=== PATIENT | male | born 1960 | race Caucasian/White ===

== ENCOUNTER → 2016-04-15 | Outpatient (CLI) | payer OTHER ==
[~2016-04-15] MED LIST: ARTISOL2 EACH EYE; DULO20 PO; FLON0.053; LANSO15 PO; LIDOCAINE PATCH TOPICAL; NAPR220T95 PO; ROSU40 PO; SUMA100T2 PO; TAMS0.4C67 PO; TYLE650T9 PO
[2016-04-15 09:23] LABS: EOSINOPHIL # 0.2 TH/MM3 (0-0.4); EOSINOPHIL % 3.4 % (0.0-4.0); HEMATOCRIT 43.8 % (39.0-51.0); HEMO FLAGS DIFF FINAL; LYMPH % 17.9 % (9.0-44.0); LYMPHOCYTE # 0.8 TH/MM3 (1.0-4.8); MEAN CORPUSCULAR HEMOGLOBIN 28.7 PG (27.0-34.0); MEAN CORPUSCULAR HGB CONC 33.8 % (32.0-36.0); MONO % 12.7 % (0.0-8.0); PLATELET COUNT 159 TH/MM3 (150-450); RED BLOOD COUNT 5.15 MIL/MM3 (4.50-5.90); RED CELL DISTRIBUTION WIDTH 13.3 % (11.6-17.2); WHITE BLOOD COUNT 4.6 TH/MM3 (4.0-11.0)
[2016-04-15 10:00] LABS: ALKALINE PHOSPHATASE 54 U/L (45-117); ALT (GPT) 24 U/L (12-78); ANION GAP 7 MEQ/L (5-15); AST (GOT) 11 U/L (15-37); BICARBONATE 29.2 MEQ/L (21.0-32.0); BLOOD UREA NITROGEN 17 MG/DL (7-18); CHLORIDE 106 MEQ/L (98-107); GLOMERULAR FILTRATION RATE 85 ML/MIN (>89); GLUCOSE,FASTING 92 MG/DL (74-99); HDL CHOLESTEROL 75.3 MG/DL (40.0-60.0); LDL CHOLESTEROL 103 MG/DL (0-99); POTASSIUM 4.1 MEQ/L (3.5-5.1); SODIUM (NA) 142 MEQ/L (136-145); THYROXINE (T4) 9.4 MCG/DL (4.5-12.1); TOTAL BILIRUBIN ADULT 0.6 MG/DL (0.2-1.0)
[2016-04-15 22:30] LABS: HEMOGLOBIN A1a 0.9 %; HEMOGLOBIN A1b 1.5 %; HEMOGLOBIN LA1C 1.9 %; HEMOGLOBIN P3 3.7 %
[2016-04-16 04:57] LABS: FREE PSA/PSA RATIO 0.1 ratio (())
== END ==
LOC: CLAB 08:54
PROVIDERS: ATTEND Urology
DX: I10 Essential (primary) hypertension (principal); E78.2 Mixed hyperlipidemia; E03.8 Other specified hypothyroidism; R97.20 Elevated prostate specific antigen [PSA]; Z79.899 Other long term (current) drug therapy
CPT/HCPCS: 36415; 80053; 80061; 83036; 84153; 84154; 84436; 84443; 84480; 85025

== ENCOUNTER → 2016-06-22 | Outpatient (CLI) | payer OTHER ==
[~2016-06-22] MED LIST changes: +ACET650T67 PO; +CIAL5TAB PO; +CIPR-9 PO; +FLUT1SPR5 EACH NARE; +IMIT100T PO; +PREV30CA11 PO; +ROSU5 PO; +ZANT150T2 PO
[2016-06-22 07:52] LABS: AUTOMATED NEUTROPHIL # 2.9 TH/MM3 (1.8-7.7); BASOPHIL % 0.8 % (0.0-2.0); EOSINOPHIL # 0.2 TH/MM3 (0-0.4); EOSINOPHIL % 3.7 % (0.0-4.0); HEMATOCRIT 43.3 % (39.0-51.0); HEMO FLAGS DIFF FINAL; LYMPH % 23.3 % (9.0-44.0); LYMPHOCYTE # 1.1 TH/MM3 (1.0-4.8); MEAN CELL VOLUME 85.3 FL (80.0-100.0); MEAN CORPUSCULAR HEMOGLOBIN 29.1 PG (27.0-34.0); MONO % 11.5 % (0.0-8.0); NEUT % 60.7 % (16.0-70.0); PLATELET COUNT 155 TH/MM3 (150-450); RED BLOOD COUNT 5.08 MIL/MM3 (4.50-5.90); RED CELL DISTRIBUTION WIDTH 13.3 % (11.6-17.2); WHITE BLOOD COUNT 4.7 TH/MM3 (4.0-11.0)
[2016-06-22 08:23] LABS: ANION GAP 5 MEQ/L (5-15); BLOOD UREA NITROGEN 17 MG/DL (7-18); CHLORIDE 106 MEQ/L (98-107); GLOMERULAR FILTRATION RATE 78 ML/MIN (>89); GLUCOSE,FASTING 89 MG/DL (74-99); POTASSIUM 4.3 MEQ/L (3.5-5.1); SODIUM (NA) 141 MEQ/L (136-145)
[2016-06-22 16:59] LABS: HEMOGLOBIN A1a 0.9 %; HEMOGLOBIN A1b 1.6 %; HEMOGLOBIN Ao 86.3 %; HEMOGLOBIN LA1C 1.8 %; HEMOGLOBIN P3 3.5 %
== END ==
LOC: CLAB 07:24
DX: Z01.812 Encounter for preprocedural laboratory examination (principal); C61 Malignant neoplasm of prostate
CPT/HCPCS: 36415; 80048; 83036; 85025

== ENCOUNTER → 2016-09-17 | Outpatient (CLI) | payer OTHER ==
[~2016-09-17] MED LIST changes: +LEVA500T20 PO; +METR-1 PO
[2016-09-17 13:06] LABS: BICARBONATE 27.7 MEQ/L (21.0-32.0); POTASSIUM 4.6 MEQ/L (3.5-5.1)
== END ==
LOC: CLAB 12:09
PROVIDERS: ATTEND Internal Medicine
DX: Z79.899 Other long term (current) drug therapy (principal)
CPT/HCPCS: 36415; 80048

== ENCOUNTER → 2016-10-04 | Outpatient (CLI) | payer OTHER ==
[2016-10-04 12:09] LABS: AUTOMATED NEUTROPHIL # 6.6 TH/MM3 (1.8-7.7); BASOPHIL % 0.3 % (0.0-2.0); EOSINOPHIL % 0.4 % (0.0-4.0); HEMATOCRIT 39.8 % (39.0-51.0); HEMO FLAGS DIFF FINAL; LYMPH % 11.5 % (9.0-44.0); MEAN CELL VOLUME 84.8 FL (80.0-100.0); MEAN CORPUSCULAR HEMOGLOBIN 28.5 PG (27.0-34.0); MEAN CORPUSCULAR HGB CONC 33.6 % (32.0-36.0); MONO % 12.1 % (0.0-8.0); NEUT % 75.7 % (16.0-70.0); PLATELET COUNT 234 TH/MM3 (150-450); RED BLOOD COUNT 4.69 MIL/MM3 (4.50-5.90); RED CELL DISTRIBUTION WIDTH 12.9 % (11.6-17.2); WHITE BLOOD COUNT 8.7 TH/MM3 (4.0-11.0)
[2016-10-04 12:15] LABS: BLOOD, URINE NEG (NEG); COMMENT (UR) CULT NOT INDICATED; CULTURE IF INDICATED CULT NOT INDICATED; GLUCOSE,URINE NEG (NEG); KETONE, URINE NEG (NEG); MUCUS URINE FEW /lpf (OCC); NITRITE,URINE NEG (NEG); URINE COLOR DARK-YELLOW (YELLW/STRAW)
== END ==
LOC: CLAB 11:15
PROVIDERS: ATTEND Internal Medicine
DX: R50.9 Fever, unspecified (principal)
CPT/HCPCS: 36415; 81001; 85025; 87040

== ENCOUNTER 2016-10-07 13:09 | Inpatient (IN) | payer OTHER ==
[~2016-10-07] VITALS: Ht 177.8 cm; Wt 99.2 kg
[~2016-10-07 13:09] MED LIST changes: -ACET650T67 PO; -CIAL5TAB PO; -CIPR-9 PO; -FLUT1SPR5 EACH NARE; -IMIT100T PO; -LEVA500T20 PO; -METR-1 PO; -PREV30CA11 PO; -ROSU5 PO; -ZANT150T2 PO
[2016-10-07 13:12] VITALS: BP 141/85; PULSE 88; RESP 20; TEMP 100.5; O2SAT 97
[2016-10-07] MEDS ORDERED: SODIUM CHLOR 0.9% 1000 ML INJ 1,000 ML IV SCH ×2 (14:08)
[2016-10-07] MEDS ORDERED: ONDANSETRON HCL 4 MG/2 ML VIAL IVP ONE (14:15)
[2016-10-07] MEDS ORDERED: KETOROLAC TROMETHAMINE 30 MG/ML (IVP) VIAL IV PUSH ONE ×2 (14:15)
--- NOTE | 2016-10-07 14:15 | PD ---
HPI Chief Complaint: Fever Time Seen by Provider: 14:14 Travel History International Travel<30 days: No Contact w/Intl Traveler<30days: No Traveled to known affect area: No History of Present Illness HPI This is a 56-year-old male who underwent a prostatectomy in July 2016, history of lower back pain, previous fusion of L4 and L5, spinal cord stimulator in place, presents for evaluation of fevers, chills, myalgias and general weakness. The patient reports over the past week has been having fevers as high as 102.4. He was seen by his primary care physician 4 days ago, Dr. Hernandez, and prescribed ciprofloxacin for suspected urinary tract infection. He has been using the Cipro as prescribed but symptoms have worsened which prompted evaluation. He endorses dry heaves which she feels like it is exacerbating his chronic lower back pain. The pain is an aching pain, constant , worse with movement. He does endorse some increased lower abdominal pain as well. He reports some mild urinary incontinence ever since the surgery in July , denies any acute changes. Denies any incontinence of stool, saddle anesthesia , cough or congestion, shortness of breath, recent travel, diarrhea, rectal pain. He has no other complaints at this time. PFSH Past Medical History Cancer: No Cardiovascular Problems: No Diabetes: No Endocrine: No Genitourinary: Yes (prostate) Hepatitis: No Hiatal Hernia: No Immune Disorder: No Musculoskeletal: Yes (lumbar spine) Neurologic: Yes (MIGRAINES) Psychiatric: No Reproductive: No Respiratory: No Thyroid Disease: No Past Surgical History Abdominal Surgery: No AICD: No Body Medical Devices: PEDICULE SCREWS Cardiac Surgery: No Ear Surgery: No Endocrine Surgery: No Eye Surgery: Yes (lasik) Genitourinary Surgery: Yes (orchieopexy, vericocele) Joint Replacement: No Oral Surgery: No Pacemaker: No Thoracic Surgery: No Social History Tobacco Use: No Substance Use: No (recovered from opiate dependency) Allergies-Medications (Allergen,Severity, Reaction): Coded Allergies: Lipitor (Verified Allergy, Severe, Rash, 01/08/16) Zocor (Verified Allergy, Intermediate, Rash, 01/08/16) Sulfa (Verified Allergy, Mild, Rash, 01/08/16) Reported Meds & Prescriptions Reported Meds & Active Scripts Active Reported Imitrex (Sumatriptan Succinate) 100 Mg Tab 100 Mg PO ONCE PRN If a satisfactory response has not been obtained at 2 hours, a second dose may be administered Crestor (Rosuvastatin Calcium) 5 Mg Tab 5 Mg PO DAILY Flonase Nasal [place] (Fluticasone Nasal [place]) 50 Mcg/Act [place] 2 Spr EACH NARE DAILY Cymbalta DR (Duloxetine HCl) 20 Mg Capdr 20 Mg PO HS Zantac (Ranitidine HCl) 150 Mg Tab 150 Mg PO BID PRN Prevacid (Lansoprazole) 30 Mg Capdr 30 Mg PO DAILY PRN Cialis (Tadalafil) 5 Mg Tab 5 Mg PO DAILY Do not exceed 1 dose/day. Cipro (Ciprofloxacin HCl) 500 Mg Tab 500 Mg PO BID Tylenol Arthritis (Acetaminophen) 650 Mg Tablet.er 1,300 Mg PO Q8HR PRN Review of Systems Except as stated in HPI: all other systems reviewed are Neg Physical Exam Narrative GENERAL: This is a well-developed well-nourished male who appears uncomfortable. SKIN: Warm and dry. HEAD: Atraumatic. Normocephalic. EYES: Pupils equal and round. No scleral icterus. No injection or drainage. ENT: No nasal bleeding or discharge. Mucous membranes pink and moist. NECK: Trachea midline. No JVD. CARDIOVASCULAR: Regular rate and rhythm. No murmur appreciated. RESPIRATORY: No accessory muscle use. Clear to auscultation. Breath sounds equal bilaterally. GASTROINTESTINAL: Abdomen soft, tender to palpation in the lower quadrants without guarding. MUSCULOSKELETAL: No obvious deformities. No edema No edema. Some tenderness to palpation in the lower lumbar spine, sacroiliac regions. NEUROLOGICAL: Awake and alert. No obvious cranial nerve deficits. Motor grossly within normal limits. Normal speech. PSYCHIATRIC: Appropriate mood and affect; insight and judgment normal. Data Data Last Documented VS Vital Signs Date Time Temp Pulse Resp B/P Pulse Ox O2 Delivery O2 Flow Rate FiO2 10/07/16 15:59 100.6 91 18 119/74 97 Room Air Orders Complete Blood Count With Diff (10/07/16 14:08) Comprehensive Metabolic Panel (10/07/16 14:08) Prothrombin Time / Inr (Pt) (10/07/16 14:08) Act Partial Throm Time (Ptt) (10/07/16 14:08) Lactic Acid Sepsis Protocol (10/07/16 14:08) Urinalysis - C+S If Indicated (10/07/16 14:08) Influenzae A/B Antigen (10/07/16 14:08) Blood Culture (10/07/16 14:08) Chest, Single Ap (10/07/16 14:08) Ct Abd/Pel W Iv Contrast(Rout) (10/07/16 14:08) Ondansetron Inj (Zofran Inj) (10/07/16 14:15) Sodium Chlor 0.9% 1000 Ml Inj (Ns 1000 M (10/07/16 14:08) Sodium Chlor 0.9% 1000 Ml Inj (Ns 1000 M (10/07/16 14:08) Ketorolac Inj (Toradol Inj) (10/07/16 14:15) Ketorolac Inj (Toradol Inj) (10/07/16 14:15) Piperacil-Tazo 3.375 Gm Premix (Zosyn 3. (10/07/16 14:30) Vancomycin Inj (Vancomycin Inj) (10/07/16 14:30) Iohexol 350 Inj (Omnipaque 350 Inj) (10/07/16 15:53) Fluid Fungus Culture And Stain (10/07/16 17:01) Admit Order (Ed Use Only) (10/07/16 17:13) Labs Laboratory Tests Test 10/07/16 10/07/16 14:20 14:25 Urine Color YELLOW Urine Turbidity CLEAR Urine pH 7.5 Urine Specific [place] 1.012 Urine Protein TRACE mg/dL Urine Glucose (UA) NEG mg/dL Urine Ketones NEG mg/dL Urine Occult Blood NEG Urine Nitrite NEG Urine Bilirubin NEG Urine Urobilinogen LESS THAN 2.0 MG/DL Urine Leukocyte Esterase NEG Urine RBC LESS THAN 1 /hpf Urine WBC 1 /hpf Microscopic Urinalysis Comment CATH-CULT NOT IND White Blood Count 9.5 TH/MM3 Red Blood Count 4.70 MIL/MM3 Hemoglobin 13.7 GM/DL Hematocrit 39.4 % Mean Corpuscular Volume 83.8 FL Mean Corpuscular Hemoglobin 29.1 PG Mean Corpuscular Hemoglobin 34.7 % Concent Red Cell Distribution Width 12.8 % Platelet Count 271 TH/MM3 Mean Platelet Volume 7.3 FL Neutrophils (%) (Auto) 85.9 % Lymphocytes (%) (Auto) 6.7 % Monocytes (%) (Auto) 6.9 % Eosinophils (%) (Auto) 0.1 % Basophils (%) (Auto) 0.4 % Neutrophils # (Auto) 8.2 TH/MM3 Lymphocytes # (Auto) 0.6 TH/MM3 Monocytes # (Auto) 0.7 TH/MM3 Eosinophils # (Auto) 0.0 TH/MM3 Basophils # (Auto) 0.0 TH/MM3 CBC Comment DIFF FINAL Differential Comment Prothrombin Time 10.8 SEC Prothromb Time International 1.0 RATIO Ratio Activated Partial 32.4 SEC Thromboplast Time Sodium Level 136 MEQ/L Potassium Level 3.7 MEQ/L Chloride Level 98 MEQ/L Carbon Dioxide Level 29.7 MEQ/L Anion Gap 8 MEQ/L Blood Urea Nitrogen 12 MG/DL Creatinine 1.20 MG/DL Estimat Glomerular Filtration 62 ML/MIN Rate Random Glucose 109 MG/DL Lactic Acid Level 1.7 mmol/L Calcium Level 9.7 MG/DL Total Bilirubin 0.8 MG/DL Aspartate Amino Transf 18 U/L (AST/SGOT) Alanine Aminotransferase 39 U/L (ALT/SGPT) Alkaline Phosphatase 122 U/L Total Protein 8.8 GM/DL Albumin 3.5 GM/DL [facility] Medical Decision Making Medical Screen Exam Complete: Yes Emergency Medical Condition: Yes Medical Record Reviewed: Yes Differential Diagnosis Viral syndrome, rheumatological disease, bacteremia, cystitis, pyelonephritis, intra-abdominal abscess, epidural abscess, occult pneumonia Narrative Course 56-year-old male presents with fevers, lower back pain, generalized weakness for one week. He underwent prostatectomy by urologist Dr. Granados at [facility] in July. On initial examination he appears uncomfortable. He has a low-grade fever. He has tenderness to palpation in the lower abdomen. Plan is for basic lab work, chest x-ray, CT abdomen and pelvis. He is given broad- spectrum antibiotics and 2 L of IV fluids. The patient's laboratory imaging studies of interview. His lab work is reassuring. CT abdomen and pelvis reveals a likely bilateral seromas which are compressing on the distal ureters resulting in mild to moderate hydronephrosis. This is the likely source of the fever. I discussed with the urologist Dr. Granados who recommends percutaneous drains to be placed into both seroma collections. He reports that this can be done here at [place] or the patient can be transferred to [facility] and he will perform the procedure based on the patient preference. I discussed these options with the patient and he would prefer to stay here. Therefore interventional radiology has been consult for percutaneous drain placement. Fluid culture, Gram stain, cell count has been ordered. The patient will be admitted to the hospitalist service. Diagnosis Primary Impression: Postoperative seroma involving genitourinary system after genitourinary procedure Additional Impression: Fever Qualified Code: R50.9 - Fever, unspecified fever cause Admitting Information Admitting Physician Requests: Admit Edouard Roman Oct 07, 2016 14:15
[2016-10-07] MEDS ORDERED: PIPERACIL-TAZO 3.375 GM PREMIX 50 ML IV ONE (14:30)
[2016-10-07] MEDS ORDERED: VANCOMYCIN INJ 1,000 MG in SODIUM CHLOR 0.9% 250 ML INJ 250 ML IV ONE (14:30)
[2016-10-07] MEDS ORDERED: ROSU5 PO (14:45)
[2016-10-07] MEDS ORDERED: CIPR-9 PO (14:45)
[2016-10-07] MEDS ORDERED: FLUT1SPR5 EACH NARE (14:45)
[2016-10-07] MEDS ORDERED: CIAL5TAB PO (14:45)
[2016-10-07] MEDS ORDERED: IMIT100T PO (14:45)
[2016-10-07] MEDS ORDERED: ZANT150T2 PO (14:45)
[2016-10-07] MEDS ORDERED: DULO20 PO (14:45)
[2016-10-07] MEDS ORDERED: PREV30CA11 PO (14:45)
[2016-10-07] MEDS ORDERED: ACET650T67 PO (14:45)
[2016-10-07 14:56] LABS: AUTOMATED NEUTROPHIL # 8.2 TH/MM3 (1.8-7.7); BASOPHIL % 0.4 % (0.0-2.0); EOSINOPHIL % 0.1 % (0.0-4.0); HEMATOCRIT 39.4 % (39.0-51.0); HEMO FLAGS DIFF FINAL; LYMPH % 6.7 % (9.0-44.0); LYMPHOCYTE # 0.6 TH/MM3 (1.0-4.8); MEAN CELL VOLUME 83.8 FL (80.0-100.0); MEAN CORPUSCULAR HEMOGLOBIN 29.1 PG (27.0-34.0); MEAN CORPUSCULAR HGB CONC 34.7 % (32.0-36.0); MONO % 6.9 % (0.0-8.0); NEUT % 85.9 % (16.0-70.0); PLATELET COUNT 271 TH/MM3 (150-450); RED CELL DISTRIBUTION WIDTH 12.8 % (11.6-17.2); WHITE BLOOD COUNT 9.5 TH/MM3 (4.0-11.0)
--- NOTE | 2016-10-07 14:56 | RADRPT ---
EXAM DATE/TIME: 10/07/2016 14:08 [facility] COMPARISON: No previous studies available for comparison. INDICATIONS : Fever for 1 week. MEDICAL HISTORY : None. SURGICAL HISTORY : None. ENCOUNTER: Initial ACUITY: 1 week PAIN SCORE: 0/10 LOCATION: Bilateral chest FINDINGS: A single view of the chest demonstrates the lungs to be symmetrically aerated without evidence of mas s, infiltrate or effusion. The cardiomediastinal contours are unremarkable. Osseous structures are intact. CONCLUSION: No acute disease. Josef Rich MD on October 07, 2016 at 14:53 Board Certified Radiologist. This report was verified electronically.
[2016-10-07 14:57] LABS: BLOOD, URINE NEG (NEG); GLUCOSE,URINE NEG (NEG); KETONE, URINE NEG (NEG); NITRITE,URINE NEG (NEG); PH, URINE 7.5 (5.0-8.5); URINE COLOR YELLOW (YELLW/STRAW)
[2016-10-07 14:59] LABS: COMMENT (UR) CATH-CULT NOT IND; CULTURE IF INDICATED CATH CULTURE NOT IND
[2016-10-07 15:07] LABS: APTT (PATIENT) 32.4 SEC (24.3-30.1); PROTHROMBIN TIME - PATIENT 10.8 SEC (9.8-11.6)
[2016-10-07 15:10] LABS: ALT (GPT) 39 U/L (12-78); ANION GAP 8 MEQ/L (5-15); AST (GOT) 18 U/L (15-37); BICARBONATE 29.7 MEQ/L (21.0-32.0); BLOOD UREA NITROGEN 12 MG/DL (7-18); CHLORIDE 98 MEQ/L (98-107); GLOMERULAR FILTRATION RATE 62 ML/MIN (>89); POTASSIUM 3.7 MEQ/L (3.5-5.1); SODIUM (NA) 136 MEQ/L (136-145)
[2016-10-07 15:13] LABS: ALKALINE PHOSPHATASE 122 U/L (45-117); TOTAL BILIRUBIN ADULT 0.8 MG/DL (0.2-1.0)
[2016-10-07] MEDS ORDERED: IOHEXOL 350 MG/ML 10 ML VIAL (for RAD DIAG) IV ONE (15:53)
[2016-10-07 15:59] VITALS: BP 119/74; PULSE 91; RESP 18; TEMP 100.6; O2SAT 97
--- NOTE | 2016-10-07 16:28 | RADRPT ---
EXAM DATE/TIME: 10/07/2016 15:43 [facility] COMPARISON: No previous studies available for comparison. INDICATIONS : Patient has fever 1 week post prostate surgery 08/04/16. IV CONTRAST: 96 cc Omnipaque 350 (iohexol) IV ORAL CONTRAST: No oral contrast ingested. RADIATION DOSE: 7.34 CTDIvol (mGy) MEDICAL HISTORY : Varicocele. left kidney calcified cyst SURGICAL HISTORY : Prostatectomy. ENCOUNTER: Initial ACUITY: 1 day PAIN SCALE: 8/10 LOCATION: Right lower quadrant TECHNIQUE: Volumetric scanning of the abdomen and pelvis was performed. Using automated exposure control and ad justment of the mA and/or kV according to patient size, radiation dose was kept as low as reasonably achievable to obtain optimal diagnostic quality images. DICOM format image data is available electro nically for review and comparison. FINDINGS: LOWER LUNGS: The visualized lower lungs are clear. LIVER: Homogeneous density without lesion. There is no dilation of the biliary tree. No calcified gallston es. SPLEEN: Normal size without lesion. PANCREAS: Within normal limits. KIDNEYS: The right and left renal collecting systems are moderately distended consistent with hydronephrosis. A rim calcified cystic lesion is identified in the lower pole of the left kidney. It measures approxi mately 5.5 cm in size. There are no internal solid components. ADRENAL GLANDS: Within normal limits. VASCULAR: There is no aortic aneurysm. BOWEL/MESENTERY: Large fluid collections are identified in the pelvis. The collections are located along the anterior margins of the psoas muscles. The right measures 4.5 x 5.0 x 12.3 cm in size and has a bilobed appear ance. The right iliac vessels are draped over the mass. The right ureter cannot be identified. The le ft-sided collection is more crescent-shaped and measures 6 cm in width by 10.2 cm in AP dimension and 7.6 cm in height. The left external artery courses along the lateral margin of the fluid collection. The left ureter is not visualized. This collection extends into the inguinal canal. The stomach, small bowel, and colon demonstrate no acute abnormality. There is no free intraper itoneal air or fluid. ABDOMINAL WALL: Within normal limits. RETROPERITONEUM: There is no lymphadenopathy. BLADDER: The bladder is nondistended but demonstrates a significant compression by the bilateral pelvic fluid collections. Ureterovesical junction is not clearly visualized. REPRODUCTIVE: Prostate and seminal vesicles have been removed. INGUINAL: There is no lymphadenopathy or hernia. MUSCULOSKELETAL: Post surgical changes following lower lumbar fusion are noted. CONCLUSION: 1. Large bilateral pelvic fluid collections which may be postsurgical seromas. There is significant c ompression of the distal ureters and bladder resulting in mild to moderate bilateral hydronephrosis. 2. Status post prostatectomy with removal of seminal vesicles. 3. Large calcified cystic lesion in the lower pole the left kidney. If prior imaging can be obtained comparison is recommended. 4. Lower lumbar fusion. Wolfgang Whitfield MD on October 07, 2016 at 16:14 Board Certified Radiologist. This report was verified electronically.
--- NOTE | 2016-10-07 16:36 | PD ---
Physical Exam Date Seen by Provider: Oct 07, 2016 Time Seen by Provider: 16:31 Narrative The patient is a 56-year-old male who presents to the emergency department for fever. The patient states he underwent robotic radical prostatectomy by Dr. Granados at [facility] in [place], [place], approximate 6 weeks ago. The patient was doing well at approximate one week ago when he developed fever. The patient is had fever at home as high as 102, was seen by his primary physician, Dr. Bill Hernandez. The patient was placed on Cipro at that time for suspected UTI, however, he states his UA was negative. He now complains of lower abdominal pain especially in the right lower quadrant of the abdomen with mild nausea, myalgias, arthralgias, and mild headache. The patient was initially seen by the mid-level provider, please refer to the initial history, physical, diagnostic evaluation, and treatment modality plan. Data Data Last Documented VS Vital Signs Date Time Temp Pulse Resp B/P Pulse Ox O2 Delivery O2 Flow Rate FiO2 10/07/16 15:59 100.6 91 18 119/74 97 Room Air Orders Complete Blood Count With Diff (10/07/16 14:08) Comprehensive Metabolic Panel (10/07/16 14:08) Prothrombin Time / Inr (Pt) (10/07/16 14:08) Act Partial Throm Time (Ptt) (10/07/16 14:08) Lactic Acid Sepsis Protocol (10/07/16 14:08) Urinalysis - C+S If Indicated (10/07/16 14:08) Influenzae A/B Antigen (10/07/16 14:08) Blood Culture (10/07/16 14:08) Chest, Single Ap (10/07/16 14:08) Ct Abd/Pel W Iv Contrast(Rout) (10/07/16 14:08) Ondansetron Inj (Zofran Inj) (10/07/16 14:15) Sodium Chlor 0.9% 1000 Ml Inj (Ns 1000 M (10/07/16 14:08) Sodium Chlor 0.9% 1000 Ml Inj (Ns 1000 M (10/07/16 14:08) Ketorolac Inj (Toradol Inj) (10/07/16 14:15) Ketorolac Inj (Toradol Inj) (10/07/16 14:15) Piperacil-Tazo 3.375 Gm Premix (Zosyn 3. (10/07/16 14:30) Vancomycin Inj (Vancomycin Inj) (10/07/16 14:30) Iohexol 350 Inj (Omnipaque 350 Inj) (10/07/16 15:53) Fluid Fungus Culture And Stain (10/07/16 17:01) Admit Order (Ed Use Only) (10/07/16 17:13) Labs Laboratory Tests Test 10/07/16 10/07/16 14:20 14:25 Urine Color YELLOW Urine Turbidity CLEAR Urine pH 7.5 Urine Specific [place] 1.012 Urine Protein TRACE mg/dL Urine Glucose (UA) NEG mg/dL Urine Ketones NEG mg/dL Urine Occult Blood NEG Urine Nitrite NEG Urine Bilirubin NEG Urine Urobilinogen LESS THAN 2.0 MG/DL Urine Leukocyte Esterase NEG Urine RBC LESS THAN 1 /hpf Urine WBC 1 /hpf Microscopic Urinalysis Comment CATH-CULT NOT IND White Blood Count 9.5 TH/MM3 Red Blood Count 4.70 MIL/MM3 Hemoglobin 13.7 GM/DL Hematocrit 39.4 % Mean Corpuscular Volume 83.8 FL Mean Corpuscular Hemoglobin 29.1 PG Mean Corpuscular Hemoglobin 34.7 % Concent Red Cell Distribution Width 12.8 % Platelet Count 271 TH/MM3 Mean Platelet Volume 7.3 FL Neutrophils (%) (Auto) 85.9 % Lymphocytes (%) (Auto) 6.7 % Monocytes (%) (Auto) 6.9 % Eosinophils (%) (Auto) 0.1 % Basophils (%) (Auto) 0.4 % Neutrophils # (Auto) 8.2 TH/MM3 Lymphocytes # (Auto) 0.6 TH/MM3 Monocytes # (Auto) 0.7 TH/MM3 Eosinophils # (Auto) 0.0 TH/MM3 Basophils # (Auto) 0.0 TH/MM3 CBC Comment DIFF FINAL Differential Comment Prothrombin Time 10.8 SEC Prothromb Time International 1.0 RATIO Ratio Activated Partial 32.4 SEC Thromboplast Time Sodium Level 136 MEQ/L Potassium Level 3.7 MEQ/L Chloride Level 98 MEQ/L Carbon Dioxide Level 29.7 MEQ/L Anion Gap 8 MEQ/L Blood Urea Nitrogen 12 MG/DL Creatinine 1.20 MG/DL Estimat Glomerular Filtration 62 ML/MIN Rate Random Glucose 109 MG/DL Lactic Acid Level 1.7 mmol/L Calcium Level 9.7 MG/DL Total Bilirubin 0.8 MG/DL Aspartate Amino Transf 18 U/L (AST/SGOT) Alanine Aminotransferase 39 U/L (ALT/SGPT) Alkaline Phosphatase 122 U/L Total Protein 8.8 GM/DL Albumin 3.5 GM/DL [facility] Medical Record Reviewed: Yes Supervised Visit with TOYA: Yes Interpretation(s) Laboratory Tests Test 10/07/16 10/07/16 14:20 14:25 Urine Color YELLOW Urine Turbidity CLEAR Urine pH 7.5 Urine Specific [place] 1.012 Urine Protein TRACE mg/dL Urine Glucose (UA) NEG mg/dL Urine Ketones NEG mg/dL Urine Occult Blood NEG Urine Nitrite NEG Urine Bilirubin NEG Urine Urobilinogen LESS THAN 2.0 MG/DL Urine Leukocyte Esterase NEG Urine RBC LESS THAN 1 /hpf Urine WBC 1 /hpf Microscopic Urinalysis Comment CATH-CULT NOT IND White Blood Count 9.5 TH/MM3 Red Blood Count 4.70 MIL/MM3 Hemoglobin 13.7 GM/DL Hematocrit 39.4 % Mean Corpuscular Volume 83.8 FL Mean Corpuscular Hemoglobin 29.1 PG Mean Corpuscular Hemoglobin 34.7 % Concent Red Cell Distribution Width 12.8 % Platelet Count 271 TH/MM3 Mean Platelet Volume 7.3 FL Neutrophils (%) (Auto) 85.9 % Lymphocytes (%) (Auto) 6.7 % Monocytes (%) (Auto) 6.9 % Eosinophils (%) (Auto) 0.1 % Basophils (%) (Auto) 0.4 % Neutrophils # (Auto) 8.2 TH/MM3 Lymphocytes # (Auto) 0.6 TH/MM3 Monocytes # (Auto) 0.7 TH/MM3 Eosinophils # (Auto) 0.0 TH/MM3 Basophils # (Auto) 0.0 TH/MM3 CBC Comment DIFF FINAL Differential Comment Prothrombin Time 10.8 SEC Prothromb Time International 1.0 RATIO Ratio Activated Partial 32.4 SEC Thromboplast Time Sodium Level 136 MEQ/L Potassium Level 3.7 MEQ/L Chloride Level 98 MEQ/L Carbon Dioxide Level 29.7 MEQ/L Anion Gap 8 MEQ/L Blood Urea Nitrogen 12 MG/DL Creatinine 1.20 MG/DL Estimat Glomerular Filtration 62 ML/MIN Rate Random Glucose 109 MG/DL Lactic Acid Level 1.7 mmol/L Calcium Level 9.7 MG/DL Total Bilirubin 0.8 MG/DL Aspartate Amino Transf 18 U/L (AST/SGOT) Alanine Aminotransferase 39 U/L (ALT/SGPT) Alkaline Phosphatase 122 U/L Total Protein 8.8 GM/DL Albumin 3.5 GM/DL Last Impressions Chest X-Ray 10/07/16 1408 Signed Impressions: Service Date/Time: , October 07, 2016 14:08 - CONCLUSION: No acute disease. Josef Rich MD CT of the abdomen and pelvis reveals large bilateral pelvic fluid collections which may be postsurgical seromas. There is significant compression of the distal ureters and bladder resulting in mild to moderate bilateral hydronephrosis. Status post prostatectomy with removal of seminal vesicles. Large calcified cystic lesion in the lower pole of the left kidney. Lower lumbar fusion. Date/Time Procedure Status Source Growth 10/07/16 14:25 Aerobic Blood Culture Received Blood Peripheral Pending 10/07/16 14:25 Anaerobic Blood Culture Received Blood Peripheral Pending 10/07/16 14:25 Aerobic Blood Culture Received Blood Peripheral Pending 10/07/16 14:25 Anaerobic Blood Culture Received Blood Peripheral Pending 10/07/16 14:40 Influenza Types A,B Antigen (BÁRBARA) - Final Complete Nasal Aspirate NEGATIVE FOR FLU A AND B ANTIGEN.... Differential Diagnosis Differential diagnosis includes pneumonia, UTI, epididymitis, pyelonephritis, sepsis, postoperative abscess, influenza, viral syndrome, perforated appendix, appendectomy, diverticulitis. Narrative Course I, Dr. Esteban, have reviewed the advance practice practitioner's documentation and am in agreement, met with the patient face to face, made the diagnosis, and the medical decision making was done by me. *My assessment and Findings: The patient is a 56-year-old male was initially evaluated by the mid-level provider. Please refer to the initial history, physical, diagnostic evaluation, and treatment modality plan. The patient was initially evaluated, was noted to have temperature of 100.6. The patient underwent robotic radical prostatectomy by Dr. Granados approximately 5-6 weeks ago in [place], [place]. The patient has had one week of fevers high as 102 home, was seen by his primary physician on an outpatient basis and had an initial blood culture which was negative as well as a UA which was unremarkable. The patient was placed on Cipro for possible UTI. He has been taking Cipro, however, continues to be symptomatic. Patient's white count, lactic acid, labs are unremarkable. However, CT reveals large bilateral pelvic fluid collections which may be postsurgical seromas causing significant compression of the distal ureters and bladder resulting in a [id number] bilateral hydronephrosis. As the patient has no other source of fever, this is possible infected seroma versus abscess versus infected lymphocele. Therefore, the patient's urologist [place], [place], was paged at 4:34 PM. He recommends either transfer to [place], [place] if the patient prefers or to stay at [place] and have interventional radiology place drains. The patient would prefer to stay and have IR place drains. Therefore, patient will be admitted to the [facility] as his primary physician is Dr. Hernandez. Diagnosis Primary Impression: Postoperative seroma involving genitourinary system after genitourinary procedure Admitting Information Admitting Physician Requests: Admit Condition: Stable [place] Esteban MD Oct 07, 2016 16:36
--- NOTE | 2016-10-07 17:25 | HHI.HP ---
HPI Service [facility] Primary Care Physician Barrie Hernandez MD Admission Diagnosis bilateral hydronephrosis, seromas Diagnoses: Chief Complaint: fever, malaise, right low back pain Travel History International Travel<30 Days: No Contact w/Intl Traveler <30 Da: No Traveled to Known Affected Are: No History of Present Illness This is a pleasant 56-year-old male with significant past medical history of chronic low back pain, has a neuro stimulator, Kelton syndrome, GERD, migraines. Patient underwent a recent robotic prostatectomy August 04, 2016 for stage III adenocarcinoma at [facility]. States that postoperatively did relatively well, he went to see his surgeon 10 days after and everything was found okay. Last , he started to have fevers, chills, myalgias, generalized weakness. States that he's noted some back pain, more specifically right flank and right buttock. Indicates that his usual back pain is usually on the left side. On Tuesday, he went to see his primary care physician who prescribed ciprofloxacin 500 mg by mouth daily for suspected UTI.. He did a UA and CBC and they were both normal. He did do blood cultures week which came back negative. Patient states that he has continued to feel poorly, his fever went went up to 102.4. He denies any burning upon urination. No incontinence. No chest pain, shortness of breath, no cough, no sputum production. No diarrhea. Laboratory workup was completed. CBC was essentially unremarkable. BMP unremarkable. Lactic acid 1.7. Urinalysis was clear. Abdomen and pelvis CT showed large bilateral pelvic fluid collection which may be postsurgical seromas. There is significant compression of the distal ureters and bladder resulting in mild to moderate bilateral hydronephrosis. He is status post prostatectomy with removal of seminal vesicles. Large calcified cystic lesion in the lower pole of the left kidney. Lower lumbar fusion. Chest x-ray was normal. His urologist Dr. Granados was contacted from the emergency room. He recommended percutaneous drains to be placed to both seroma collections. He reported this can be done here at [place] or the patient can be transferred to [facility] and he will perform the procedure. These options were discussed with the patient and he opted to stay here. Interventional radiology has been consulted for percutaneous drain placement with fluid culture, Gram stain and cell count ordered. Patient has been started on empiric antibiotics, blood cultures were obtained. Patient endorses that he has Kelton syndrome and had a flareup a couple of weeks ago that required Medrol Dosepak. His pallet sorter is . He had a rash and joint pain. Denies any rash at this time, no joint pain. Patient is admitted for further evaluation and treatment. Past Family Social History Past Medical History GERD Migraines Chronic back pain, history of SI joint problems, had neuro stimulator placed December 2015 Kelton syndrome Hyperlipidemia History of prostatitis in the past Prostate cancer, stage III adenocarcinoma, recently had robotic prostatectomy Past Surgical History Neurostimulator placement L4-L5 fusion Orchiopexy Varicocele repair Lasix surgery Reported Medications Reported Meds & Active Scripts Active Reported Imitrex (Sumatriptan Succinate) 100 Mg Tab 100 Mg PO ONCE PRN If a satisfactory response has not been obtained at 2 hours, a second dose may be administered Crestor (Rosuvastatin Calcium) 5 Mg Tab 5 Mg PO DAILY Flonase Nasal [place] (Fluticasone Nasal [place]) 50 Mcg/Act [place] 2 Spr EACH NARE DAILY Cymbalta DR (Duloxetine HCl) 20 Mg Capdr 20 Mg PO HS Zantac (Ranitidine HCl) 150 Mg Tab 150 Mg PO BID PRN Prevacid (Lansoprazole) 30 Mg Capdr 30 Mg PO DAILY PRN Cialis (Tadalafil) 5 Mg Tab 5 Mg PO DAILY Do not exceed 1 dose/day. Cipro (Ciprofloxacin HCl) 500 Mg Tab 500 Mg PO BID Tylenol Arthritis (Acetaminophen) 650 Mg Tablet.er 1,300 Mg PO Q8HR PRN Allergies: Coded Allergies: Lipitor (Verified Allergy, Severe, Rash, 01/08/16) Zocor (Verified Allergy, Intermediate, Rash, 01/08/16) Sulfa (Verified Allergy, Mild, Rash, 01/08/16) Active Ordered Medications Inpatient Medications Acetaminophen (Tylenol) 650 mg Q4H PRN PO TEMP > 100.4; Start 10/07/16 at 17:30 ; Status UNV Bisacodyl (Dulcolax Supp) 10 mg DAILY PRN RECTAL SEVERE CONSITIPATION; Start at 17:30; Status UNV Ketorolac Tromethamine (Toradol Inj) 15 mg Q6H PRN IVP Pain 3-5; if unable to take PO; Start 10/07/16 at 17:30; Stop 10/12/16 at 17:29; Status UNV Ketorolac Tromethamine 30 mg 30 mg ONCE ONCE IV PUSH Last administered on 10/07 14:33; Start 10/07/16 at 14:15; Stop 10/07/16 at 14:16; Status DC Lactulose 30 ml 30 ml DAILY PRN PO SEVERE CONSITIPATION; Start 10/07/16 at 17: 30; Status UNV Magnesium Hydroxide (Milk Of Magnesia Liq) 30 ml Q12H PRN PO MILD - MODERATE CONSTIPATION; Start 10/07/16 at 17:30; Status UNV Naloxone HCl (Narcan Inj) 0.4 mg UNSCH PRN IV SEE LABEL COMMENTS; Start at 17:30; Status UNV Ondansetron HCl (Zofran Inj) 4 mg Q6H PRN IVP NAUSEA OR VOMITING; Start at 17:30; Status UNV Pharmacy Profile Note (Vancomycin Consult Pharmacy) 0 ml @ 0 mls/hr UNSCH OTHER ; Start 10/07/16 at 17:30; Status UNV Piperacillin Sod/ Tazobactam Sod 50 ml @ 100 mls/hr Q6H IV ; Start 10/08/16 at 01:00; Status UNV Senna/Docusate Sodium (Daniela-Colace) 1 tab BID PO ; Start 10/07/16 at 21:00; Status UNV Sennosides (Senokot) 17.2 mg Q12H PRN PO MODERATE - SEVERE CONSTIPATION; Start 10/07/16 at 17:30; Status UNV Sodium Chloride (NS 1000 ml Inj) 1,000 ml @ 100 mls/hr Q10H IV ; Start at 17:19; Status UNV Sodium Chloride (NS Flush) 2 ml BID IV FLUSH ; Start 10/07/16 at 21:00; Status UNV Vancomycin HCl 1000 mg/Sodium Chloride 250 ml @ 250 mls/hr ONCE ONCE IV Last administered on 10/07/16 15:55; Start 10/07/16 at 14:30; Stop 10/07/16 at 15:29 ; Status DC Family History Reviewed, noncontributory Positive for diabetes Social History Patient is , has a grown daughter. He is a retired pharmacist. Denies any alcohol, tobacco, no substance abuse. Physical Exam Vital Signs Vital Signs Date Time Temp Pulse Resp B/P Pulse Ox O2 Delivery O2 Flow Rate FiO2 10/07/16 15:59 100.6 91 18 119/74 97 Room Air 10/07/16 13:12 100.5 88 20 141/85 97 Room Air Physical Exam GENERAL: This is a well-nourished, well-developed patient, in no apparent distress. SKIN: No rashes, ecchymoses or lesions. Cool and dry. HEAD: Atraumatic. Normocephalic. No temporal or scalp tenderness. EYES: Pupils equal round and reactive. Extraocular motions intact. No scleral icterus. No injection or drainage. ENT: Nose without bleeding, purulent drainage or septal hematoma. Throat without erythema, tonsillar hypertrophy or exudate. Uvula midline. Airway patent. NECK: Trachea midline. No JVD or lymphadenopathy. Supple, nontender, no meningeal signs. CARDIOVASCULAR: Regular rate and rhythm without murmurs, gallops, or rubs. RESPIRATORY: Clear to auscultation. Breath sounds equal bilaterally. No wheezes , rales, or rhonchi. GASTROINTESTINAL: Abdomen soft, non-tender, nondistended. No hepato-splenomegaly , or palpable masses. No guarding. MUSCULOSKELETAL: Extremities without clubbing, cyanosis, or edema. No joint tenderness, effusion, or edema noted. No calf tenderness. Negative Homans sign bilaterally. NEUROLOGICAL: Awake and alert. Cranial nerves II through XII intact. Motor and sensory grossly within normal limits. Five out of 5 muscle strength in all muscle groups. Normal speech. Laboratory Laboratory Tests Test 10/07/16 10/07/16 14:20 14:25 Urine Color YELLOW Urine Turbidity CLEAR Urine pH 7.5 Urine Specific [place] 1.012 Urine Protein TRACE Urine Glucose (UA) NEG Urine Ketones NEG Urine Occult Blood NEG Urine Nitrite NEG Urine Bilirubin NEG Urine Urobilinogen LESS THAN 2.0 Urine Leukocyte Esterase NEG Urine RBC LESS THAN 1 Urine WBC 1 Microscopic Urinalysis Comment CATH-CULT NOT IND White Blood Count 9.5 Red Blood Count 4.70 Hemoglobin 13.7 Hematocrit 39.4 Mean Corpuscular Volume 83.8 Mean Corpuscular Hemoglobin 29.1 Mean Corpuscular Hemoglobin 34.7 Concent Red Cell Distribution Width 12.8 Platelet Count 271 Mean Platelet Volume 7.3 Neutrophils (%) (Auto) 85.9 Lymphocytes (%) (Auto) 6.7 Monocytes (%) (Auto) 6.9 Eosinophils (%) (Auto) 0.1 Basophils (%) (Auto) 0.4 Neutrophils # (Auto) 8.2 Lymphocytes # (Auto) 0.6 Monocytes # (Auto) 0.7 Eosinophils # (Auto) 0.0 Basophils # (Auto) 0.0 CBC Comment DIFF FINAL Differential Comment Prothrombin Time 10.8 Prothromb Time International 1.0 Ratio Activated Partial 32.4 Thromboplast Time Sodium Level 136 Potassium Level 3.7 Chloride Level 98 Carbon Dioxide Level 29.7 Anion Gap 8 Blood Urea Nitrogen 12 Creatinine 1.20 Estimat Glomerular Filtration 62 Rate Random Glucose 109 Lactic Acid Level 1.7 Calcium Level 9.7 Total Bilirubin 0.8 Aspartate Amino Transf 18 (AST/SGOT) Alanine Aminotransferase 39 (ALT/SGPT) Alkaline Phosphatase 122 Total Protein 8.8 Albumin 3.5 Date/Time Procedure Status Source Growth 10/07/16 14:40 Influenza Types A,B Antigen (BÁRBARA) - Final Complete Nasal Aspirate NEGATIVE FOR FLU A AND B ANTIGEN.... 10/07/16 14:25 Aerobic Blood Culture Received Blood Peripheral Pending 10/07/16 14:25 Anaerobic Blood Culture Received Blood Peripheral Pending Result Diagram: 10/07/16 1425 10/07/16 1425 Imaging Last Impressions Chest X-Ray 10/07/161407 Signed Impressions: Service Date/Time: September 14:08 - CONCLUSION: No acute disease. Josef Rich MD Abdomen/Pelvis CT 10/07/16 1408 Signed Impressions: Service Date/Time: September 15:43 - CONCLUSION: 1. Large bilateral pelvic fluid collections which may be postsurgical seromas. There is significant compression of the distal ureters and bladder resulting in mild to moderate bilateral hydronephrosis. 2. Status post prostatectomy with removal of seminal vesicles. 3. Large calcified cystic lesion in the lower pole the left kidney. If prior imaging can be obtained comparison is recommended. 4. Lower lumbar fusion. Wolfgang Whitfield MD Assessment and Plan Problem List: (1) Fever (2) Bilateral hydronephrosis (3) Postoperative seroma involving genitourinary system after genitourinary procedure (4) Kelton's syndrome (5) GERD (gastroesophageal reflux disease) (6) Chronic low back pain (7) neurostiumulator in place Assessment and Plan Admit to Dr. Odom 56-year-old male status post prostatectomy August 04, 2016, history of low back pain, has neurostimulator in in place. Presents to the emergency room with fever, malaise, right flank buttock pain. CT abdomen and pelvis with findings of large bilateral pelvic fluid collections which may be postsurgical seromas. There is significant compression of the distal ureters and bladder resulting [id number] bilateral hydronephrosis. -Interventional radiology consultation for drain placement Continue with antibiotics, follow cultures Patient will be hydrated, normal cellular 100 hour Toradol as needed for pain -Monitor renal function -Continue with Cialis History of Kelton syndrome, had a recent flareup that require Medrol Dosepak Continue to monitor patient Chronic low back pain, has a neuro stimulator in place. Follows up regularly with Dr. aKye -Patient indicates that Toradol is effective for his pain, requesting no narcotics. -Continue with Cymbalta 20 by mouth daily at bedtime, he uses for pain management GERD Continue with Zantac 150 mg by mouth twice a day Home medications reviewed, initiated as indicated SCDs for DVT prophylaxis Plan of care has been discussed with the patient and his , their questions have been answered detail. Plan of care discussed with attending and registered nurse. Further management of the patient will be dependent on the hospital course This patient was seen by myself and Dr. Odom, this H&P is written on his behalf Problem Qualifiers (1) Fever: Qualified Code: R50.9 - Fever, unspecified fever cause (2) Kelton's syndrome: Qualified Code: M02.30 - Kelton's disease, Kelton's disease of unspecified site (3) GERD (gastroesophageal reflux disease): Qualified Code: K21.9 - Gastroesophageal reflux disease, esophagitis presence not specified (4) Chronic low back pain: Chanda Singletary Oct 07, 2016 17:25
[2016-10-07] MEDS ORDERED: ACETAMINOPHEN 325 MG TAB PO PRN (17:30)
[2016-10-07] MEDS ORDERED: LACTULOSE SYRUP 20 GM/30 ML CUP PO PRN (17:30)
[2016-10-07] MEDS ORDERED: SODIUM CHLORIDE 0.9% FLUSH 10 ML FLUSH IV FLUSH PRN (17:30)
[2016-10-07] MEDS ORDERED: NALOXONE HCL 0.4 MG/ML AMP IV PRN (17:30)
[2016-10-07] MEDS ORDERED: Vancomycin Consult Pharmacy 1 EA OTHER SCH (17:30)
[2016-10-07] MEDS ORDERED: SENNOSIDES 8.6 MG TAB PO PRN (17:30)
[2016-10-07] MEDS ORDERED: BISACODYL 10 MG SUPP RECTAL PRN (17:30)
[2016-10-07] MEDS ORDERED: MAGNESIUM HYDROXIDE SUSP 30 ML CUP PO PRN (17:30)
[2016-10-07] MEDS ORDERED: PANTOPRAZOLE SOD 40 MG DELAYED RELEASE TAB PO PRN (19:15)
[2016-10-07] MEDS: SODIUM CHLOR 0.9% 1000 ML INJ 1,000 ML IV SCH (19:36)
[2016-10-07 19:53] VITALS: BP_SYST 104; BP_SYST 114; BP_DIAS 60; BP_DIAS 70; PULSE 79; PULSE 90; RESP 16; TEMP 101.1; TEMP 98.2; O2SAT 96; O2SAT 98
[2016-10-07] MEDS: SODIUM CHLORIDE 0.9% FLUSH 10 ML FLUSH IV FLUSH SCH (22:19)
[2016-10-07] MEDS: DOCUSATE SODIUM 50 MG/SENNA 8.6 MG TAB PO SCH (22:19)
[2016-10-07] MEDS: FAMOTIDINE 20 MG TAB PO SCH (22:19)
[2016-10-07] MEDS: DULoxetine HCl DR 20 MG CAP PO SCH (22:48)
[2016-10-08] VITALS (14 sets, daily range): BP systolic 103–128; BP diastolic 60–81; PULSE 72–107; RESP 16–26; TEMP 97.8–99.1; O2SAT 95–100
[2016-10-08] MEDS: VANCOMYCIN INJ 1,500 MG in SODIUM CHLORID 0.9% 500 ML INJ 500 ML IV SCH ×2 (00:11→13:44)
[2016-10-08] MEDS: ONDANSETRON HCL 4 MG/2 ML VIAL IVP PRN ×3 (00:48→17:30)
[2016-10-08] MEDS: KETOROLAC TROMETHAMINE 30 MG/ML (IVP) VIAL IVP PRN ×3 (00:49→17:30)
[2016-10-08] MEDS: PIPERACIL-TAZO 3.375 GM PREMIX 50 ML IV SCH ×2 (01:54→06:45)
[2016-10-08] MEDS: SODIUM CHLOR 0.9% 1000 ML INJ 1,000 ML IV SCH ×2 (06:47→13:45)
[2016-10-08] MEDS ORDERED: fentaNYL CITRATE 250 MCG/5 ML AMP ONE (08:12)
[2016-10-08] MEDS ORDERED: MIDAZOLAM HCL 5 MG/5 ML VIAL ONE (08:13)
[2016-10-08] MEDS: SODIUM CHLORIDE 0.9% FLUSH 10 ML FLUSH IV FLUSH SCH ×2 (08:35→21:02)
[2016-10-08] MEDS: FAMOTIDINE 20 MG TAB PO SCH (08:35)
[2016-10-08] MEDS: DOCUSATE SODIUM 50 MG/SENNA 8.6 MG TAB PO SCH ×3 (08:35→21:02)
[2016-10-08] MEDS ORDERED: LIDOCAINE 1%/EPINEPHrine 1:100,000 SOLN 20 ML VIAL ONE (08:54)
[2016-10-08] MEDS ORDERED: TADALAFIL 5 MG PO SCH (09:00)
[2016-10-08] MEDS ORDERED: ROSUVASTATIN 5 MG PO SCH (09:00)
[2016-10-08] MEDS ORDERED: MIDAZOLAM HCL 2 MG/2 ML VIAL ONE (09:32)
[2016-10-08] MEDS: FLUTICASONE PROPIONATE 50 MCG/ACT 16 GM NASAL SPRAY EACH NARE SCH (09:46)
--- NOTE | 2016-10-08 10:25 | RADRPT ---
EXAM DATE/TIME: 10/08/2016 09:09 [facility] COMPARISON: No previous studies available for comparison. INDICATIONS : Right sided pelvic collection consistent with seroma/lymphocele. SEDATION TIME: 60 minutes MEDICATION(S): 1.) 7 mg midazolam (Versed) IV 2.) 250 mcg fentanyl (Sublimaze) IV DEVICE(S): 1.) 8 Fr Locking pigtail FLUID: Total volume of 20 cc of cloudy, yellow fluid was removed. Fluid was sent for laboratory ordered studies. MEDICAL HISTORY : None. SURGICAL HISTORY : Prostatectomy. ENCOUNTER: Initial ACUITY: 1 day PAIN SCORE: 4/10 LOCATION: Right lower quadrant PROCEDURE: 1.) Conscious sedation with continuous EKG and oximetry monitoring. 2.) EKG and oximetry remained stable throughout the procedure. PROCEDURE : 1. CT guided drainage of the right pelvic collection ( probable lymphocele) 2. Conscious sedation with continuous EKG and oximetry monitoring. The risks, benefits and alternatives to the procedure were explained and verbal and written consent w as obtained. Using automated exposure control and adjustment of the mA and/or kV according to patient size, radiation dose was kept as low as reasonably achievable to obtain optimal diagnostic quality i mages. The site was prepped in sterile fashion. Full sterile technique was used, including cap, ma sk, sterile gloves and gown and a large sterile sheet. Hand hygiene and 2% chlorhexidine and/or beta dine/alcohol prep was utilized per protocol for cutaneous antisepsis. The skin and subcutaneous tiss ues were infiltrated with local anesthetic solution. DICOM format image data is available electronic ally for review and comparison. Using CT guidance the prescribed site was localized. Drainage was performed using the prescribed cat heter The patient tolerated the procedure well and there were no complications. Conscious sedation was per formed with the prescribed dosages and duration as above in the presence of an independent trained ra diology nurse to assist in the monitoring of the patient. EKG and oximetry remained stable throughou t the procedure. The patient tolerated the procedure well and there were no complications. The patient was sent to pos t anesthesia recovery in stable condition. CONCLUSION: Uncomplicated CT guided drainage with placement of 8 Spanish locking pigtail. Josef Rich MD on October 08, 2016 at 10:20 Board Certified Radiologist. This report was verified electronically.
--- NOTE | 2016-10-08 10:29 | RADRPT ---
EXAM DATE/TIME: 10/08/2016 09:09 [facility] COMPARISON: No previous studies available for comparison. INDICATIONS : Left sided pelvic collection consistent with seroma/lymphocele. SEDATION TIME: 60 minutes MEDICATION(S): 1.) 7 mg midazolam (Versed) IV 2.) 250 mcg fentanyl (Sublimaze) IV DEVICE(S): 1.) 8 Fr Locking pigtail FLUID: Total volume of 10 cc of clear, yellow fluid was removed. Fluid was sent for laboratory ordered studies. MEDICAL HISTORY : None. SURGICAL HISTORY : Prostatectomy. ENCOUNTER: Initial ACUITY: 1 day PAIN SCORE: 5/10 LOCATION: Left lower quadrant PROCEDURE: 1.) Conscious sedation with continuous EKG and oximetry monitoring. 2.) EKG and oximetry remained stable throughout the procedure. PROCEDURE : 1. CT guided drainage of the left pelvic collection (probable lymphocele) 2. Conscious sedation with continuous EKG and oximetry monitoring. The risks, benefits and alternatives to the procedure were explained and verbal and written consent w as obtained. Using automated exposure control and adjustment of the mA and/or kV according to patient size, radiation dose was kept as low as reasonably achievable to obtain optimal diagnostic quality i mages. The site was prepped in sterile fashion. Full sterile technique was used, including cap, ma sk, sterile gloves and gown and a large sterile sheet. Hand hygiene and 2% chlorhexidine and/or beta dine/alcohol prep was utilized per protocol for cutaneous antisepsis. The skin and subcutaneous tiss ues were infiltrated with local anesthetic solution. DICOM format image data is available electronic ally for review and comparison. Using CT guidance the prescribed site was localized. Drainage was performed using the prescribed cat heter The patient tolerated the procedure well and there were no complications. Conscious sedation was per formed with the prescribed dosages and duration as above in the presence of an independent trained ra diology nurse to assist in the monitoring of the patient. EKG and oximetry remained stable throughou t the procedure. The patient tolerated the procedure well and there were no complications. The patient was sent to pos t anesthesia recovery in stable condition. CONCLUSION: Uncomplicated CT guided drainage with placement of 8 [place] locking pigtail. Josef Rich MD on October 08, 2016 at 10:24 Board Certified Radiologist. This report was verified electronically.
[2016-10-08] MEDS ORDERED: MEPERIDINE HCL 50 MG/ML VIAL ONE ×2 (11:07→11:13)
[2016-10-08] MEDS ORDERED: SODIUM CHLORIDE 0.9% FLUSH 10 ML FLUSH IV FLUSH PRN (12:15)
[2016-10-08] MEDS ORDERED: MISCELLANEOUS NURSING INFORMATION XX SCH (12:15)
[2016-10-08] MEDS ORDERED: RESP: ALBUTEROL 2.5 MG/3 ML NEB (PRN) INH (12:15)
[2016-10-08] MEDS ORDERED: SODIUM CHLOR 0.9% 1000 ML INJ 1,000 ML IV ONE (12:15)
[2016-10-08] MEDS ORDERED: BISACODYL 10 MG SUPP RECTAL PRN (12:15)
[2016-10-08] MEDS ORDERED: MAGNESIUM HYDROXIDE SUSP 30 ML CUP PO PRN (12:15)
[2016-10-08] MEDS ORDERED: ONDANSETRON HCL 4 MG/2 ML VIAL IV PRN (12:15)
[2016-10-08] MEDS ORDERED: LACTULOSE SYRUP 20 GM/30 ML CUP PO PRN (12:15)
[2016-10-08] MEDS ORDERED: CHLORHEXIDINE GLUCONATE 2 % 1 PACK (2 CLOTHS) TOP PRN (12:15)
[2016-10-08] MEDS ORDERED: SENNOSIDES 8.6 MG TAB PO PRN (12:15)
--- NOTE | 2016-10-08 12:25 | PD.CONS ---
[facility] Service Critical Care Medicine Consult Requested By Dr. Guzman Reason for Consult Sepsis Primary Care Physician Barrie Hernandez MD History of Present Illness This is a 56-year-old male. Date of admission 10/07/2016. Date of consultation . Past medical history includes migraine headache, chronic low back pain with history of SI joint injections status post neurostimulator placed 12/25, dyslipidemia, Kelton's syndrome, prostate cancer stage III adenocarcinoma, ED, patient underwent a robotic prostatectomy July for prostate carcinoma at [facility] with Dr. Granados. Postoperative care was uncomplicated and saw this physician 10 days postop without complication. On 09/30/2016, patient noticed low back pain with myalgias, chills and generalized weakness. This pain was more right flank/right buttock. Is prescribed ciprofloxacin 500 mg daily for SPECT UTI. UA and CBC were normal return. Blood cultures negative. Yesterday, patient is CT abdomen/pelvis showed large bilateral pelvic fluid collections seromatous likely. There is compression of the distal ureters and bladder resulting in hydronephrosis. His urologist Dr. Granados was contacted from the emergency department. He recommended percutaneous drainage replaced both stromal collections. Patient wished to stay at [facility] to have this procedure performed. IR was consulted for percutaneous drainage placement. Today, patient had CT-guided placement of 8.0 Qatari locking pigtail catheters. Right fluid was cloudy and yellow. Left is clear and patricio. His Rocephin for appropriate cultures. He received 4.5 mg Versed and 150 mcg fentanyl for this procedure. Postprocedure, patient became quite tremulous tachycardic and hypoxic. Was given Demerol by IR physician kaur. Since initial event, the patient has been normotensive currently on 2 L nasal cannula and appears much more calm at present time. Review of Systems Constitutional: COMPLAINS OF: Fever, DENIES: Fatigue, Weight gain, Weight loss Endocrine: DENIES: Polyphagia Eyes: DENIES: Blurred vision Ears, nose, mouth, throat: DENIES: Tinnitus Respiratory: DENIES: Shortness of breath Cardiovascular: DENIES: Chest pain Gastrointestinal: COMPLAINS OF: Abdominal pain, DENIES: Diarrhea, Nausea, Vomiting Genitourinary: DENIES: Urinary frequency Musculoskeletal: COMPLAINS OF: Joint pain, Back pain, DENIES: Neck pain Integumentary: DENIES: Abnormal pigmentation Hematologic/lymphatic: DENIES: Bruising Immunologic/allergic: DENIES: Eczema Neurologic: DENIES: Abnormal gait, Headache Psychiatric: DENIES: Anxiety, Confusion Past Family Social History Allergies: Coded Allergies: Lipitor (Verified Allergy, Severe, Rash, 01/08/16) Zocor (Verified Allergy, Intermediate, Rash, 01/08/16) Sulfa (Verified Allergy, Mild, Rash, 01/08/16) Past Medical History Migraine headache Chronic low back pain history of neurogenic stimulator 12/25 Kelton syndrome Gastroesophageal reflux disease Depression Dyslipidemia Adenocarcinoma stage III prostate cancer Past Surgical History L4/L5 lumbar fusion Orchiplexy Lasik eye surgery Varicocele Prostatectomy with removal seminal vesicles Reported Medications Imitrex (Sumatriptan Succinate) 100 Mg Tab 100 Mg PO ONCE PRN If a satisfactory response has not been obtained at 2 hours, a second dose may be administered Crestor (Rosuvastatin Calcium) 5 Mg Tab 5 Mg PO DAILY Flonase Nasal [place] (Fluticasone Nasal [place]) 50 Mcg/Act [place] 2 Spr EACH NARE DAILY Cymbalta DR (Duloxetine HCl) 20 Mg Capdr 20 Mg PO HS Zantac (Ranitidine HCl) 150 Mg Tab 150 Mg PO BID PRN Prevacid (Lansoprazole) 30 Mg Capdr 30 Mg PO DAILY PRN Cialis (Tadalafil) 5 Mg Tab 5 Mg PO DAILY Do not exceed 1 dose/day. Cipro (Ciprofloxacin HCl) 500 Mg Tab 500 Mg PO BID Tylenol Arthritis (Acetaminophen) 650 Mg Tablet.er 1,300 Mg PO Q8HR PRN Active Ordered Medications Reviewed in EMR Family History Positive for diabetes on father's side. Otherwise reviewed and unremarkable Social History Quit tobacco 1990. No current alcohol or substance abuse. Physical Exam Vital Signs Vital Signs Date Time Temp Pulse Resp B/P Pulse Ox O2 Delivery O2 Flow Rate FiO2 10/08/16 11:08 100 15.00 100 10/08/16 10:26 Room Air 10/08/16 08:00 98.5 74 18 112/62 96 10/08/16 04:00 98.1 72 16 112/67 98 10/08/16 00:00 Room Air 10/07/16 20:00 Room Air 10/07/16 19:53 98.2 79 16 104/60 96 10/07/16 19:53 101.1 90 16 114/70 98 10/07/16 15:59 100.6 91 18 119/74 97 Room Air 10/07/16 13:12 100.5 88 20 141/85 97 Room Air Physical Exam GENERAL: 56-year-old male, seen in bed in no acute distress not ill- appearing SKIN: Warm and dry. No rash HEAD: Atraumatic. Normocephalic. EYES: Pupils equal and round about 2 mm bilaterally and reactive. No scleral icterus. No injection or drainage. ENT: No nasal bleeding or discharge. Mucous membranes pink and moist. Oropharynx without erythema NECK: Trachea midline. No JVD. CARDIOVASCULAR: Tachycardia, RR. S1, S2. No S4. Without murmur. RESPIRATORY: Clear to auscultation. Breath sounds equal bilaterally. GASTROINTESTINAL: Abdomen soft, non-tender, nondistended. Hypoactive bowel sounds. #8 Qatari locking pigtail drains bilateral lower quadrants MUSCULOSKELETAL: Extremities without significant peripheral edema. No obvious deformities. NEUROLOGICAL: Awake and alert. No obvious cranial nerve deficits. Motor grossly within normal limits. Five out of 5 muscle strength in the arms and legs. Normal speech. PSYCHIATRIC: Appropriate mood and affect; insight and judgment normal. Laboratory Laboratory Tests Test 10/07/16 10/07/16 14:20 14:25 Urine Color YELLOW Urine Turbidity CLEAR Urine pH 7.5 Urine Specific [place] 1.012 Urine Protein TRACE Urine Glucose (UA) NEG Urine Ketones NEG Urine Occult Blood NEG Urine Nitrite NEG Urine Bilirubin NEG Urine Urobilinogen LESS THAN 2.0 Urine Leukocyte Esterase NEG Urine RBC LESS THAN 1 Urine WBC 1 Microscopic Urinalysis Comment CATH-CULT NOT IND White Blood Count 9.5 Red Blood Count 4.70 Hemoglobin 13.7 Hematocrit 39.4 Mean Corpuscular Volume 83.8 Mean Corpuscular Hemoglobin 29.1 Mean Corpuscular Hemoglobin 34.7 Concent Red Cell Distribution Width 12.8 Platelet Count 271 Mean Platelet Volume 7.3 Neutrophils (%) (Auto) 85.9 Lymphocytes (%) (Auto) 6.7 Monocytes (%) (Auto) 6.9 Eosinophils (%) (Auto) 0.1 Basophils (%) (Auto) 0.4 Neutrophils # (Auto) 8.2 Lymphocytes # (Auto) 0.6 Monocytes # (Auto) 0.7 Eosinophils # (Auto) 0.0 Basophils # (Auto) 0.0 CBC Comment DIFF FINAL Differential Comment Prothrombin Time 10.8 Prothromb Time International 1.0 Ratio Activated Partial 32.4 Thromboplast Time Sodium Level 136 Potassium Level 3.7 Chloride Level 98 Carbon Dioxide Level 29.7 Anion Gap 8 Blood Urea Nitrogen 12 Creatinine 1.20 Estimat Glomerular Filtration 62 Rate Random Glucose 109 Lactic Acid Level 1.7 Calcium Level 9.7 Total Bilirubin 0.8 Aspartate Amino Transf 18 (AST/SGOT) Alanine Aminotransferase 39 (ALT/SGPT) Alkaline Phosphatase 122 Total Protein 8.8 Albumin 3.5 Date/Time Procedure Status Source Growth 10/08/16 09:48 Gram Stain Received Fluid Other Pending 10/08/16 09:48 Body Fluid Culture Received Fluid Other Pending 10/08/16 09:48 Fungal Smear Received Fluid Other Pending 10/08/16 09:48 Fungal Culture Received Fluid Other Pending 10/07/16 14:40 Influenza Types A,B Antigen (BÁRBARA) - Final Complete Nasal Aspirate NEGATIVE FOR FLU A AND B ANTIGEN.... 10/07/16 14:25 Aerobic Blood Culture - Preliminary Resulted Blood Peripheral NO GROWTH IN 1 DAY 10/07/16 14:25 Anaerobic Blood Culture - Preliminary Resulted Blood Peripheral NO GROWTH IN 1 DAY Result Diagram: 10/07/16 1425 10/07/16 1425 Imaging Last Impressions Abscess Drainage CT 10/08/16 0000 Signed Impressions: Service Date/Time: Saturday, October 08, 2016 09:09 - CONCLUSION: Uncomplicated CT guided drainage with placement of 8 Qatari locking pigtail. Josef Rich MD Chest X-Ray 10/07/16 1408 Signed Impressions: Service Date/Time: September 14:08 - CONCLUSION: No acute disease. Josef Rich MD Abdomen/Pelvis CT 10/07/16 1408 Signed Impressions: Service Date/Time: September 15:43 - CONCLUSION: 1. Large bilateral pelvic fluid collections which may be postsurgical seromas. There is significant compression of the distal ureters and bladder resulting in mild to moderate bilateral hydronephrosis. 2. Status post prostatectomy with removal of seminal vesicles. 3. Large calcified cystic lesion in the lower pole the left kidney. If prior imaging can be obtained comparison is recommended. 4. Lower lumbar fusion. Wolfgang Whitfield MD Assessment and Plan Assessment and Plan Neuro/Psych: Migraine headache History of chronic low back pain status post neurostimulator placed 12/25 Imitrex 100 mg as needed for migraine headache. Currently on Toradol as needed for pain management. Requesting no narcotics. Continue Cymbalta 20 mg by mouth bedtime for pain management CV: Sinus tachycardia Dyslipidemia Currently normal saline at 100 cc an hour. Received 1 L after event above. EKG pending On Crestor 5 mg daily at home for dyslipidemia. Resp: Acute hypoxemia Nasal cannula to maintain saturations greater than or equal to 92%. Currently on 2 L Incentive spirometry while awake Chest x-ray pending GI: Gastroesophageal reflux disease On as needed Zantac 150 twice a day when necessary/Prevacid 30 mg by mouth daily. Home for gastro-soft reflux disease Heart healthy diet Protonix ordered for GI prophylaxis Daniela-Colace for bowel regimen : ED History of prostate cancer stage III adenocarcinoma status post robotic prostatectomy 07/26 Holding Cialis Endo: Sliding-scale insulin to maintain euglycemia Renal: Monitor urine output Accurate I's and O's Follow-up creatinine Heme: CBC pending. Normal admission. ID: Status post placed an #8 Qatari locking pigtail catheters to likely seromas question infected Previously treated with ciprofloxacin. Currently on Zosyn/vancomycin. Fungal culture bacterial cultures all pending. Blood cultures 2 ordered now FEN: Replace electrolytes as clinically indicated MSK: PT evaluate and treat Access - Utilize peripheral IV. Central line if indicated Prophylaxis - GI - Protonix - DVT - SCD/holding pharmacological prophylaxis in light of recent intervention. Resume when clinically indicated Level II consult We will sign off. Call if questions arise. Code Status Full code Discussed Condition With Patient. Dr. Guzman. Care plan discussed and all questions answered. Quoc Polanco MD Oct 08, 2016 12:25
--- NOTE | 2016-10-08 13:31 | RADRPT ---
EXAM DATE/TIME: 10/08/2016 12:26 [place] COMPARISON: CHEST SINGLE AP, October 07, 2016, 14:08. INDICATIONS : Fever, short of breath. MEDICAL HISTORY : Hydronephrosis, Seroma SURGICAL HISTORY : Prostatectomy. ENCOUNTER: Initial ACUITY: 3 days PAIN SCORE: 0/10 LOCATION: Bilateral chest FINDINGS: A single view of the chest demonstrates the lungs to be symmetrically aerated without evidence of mas s, infiltrate or effusion. The cardiomediastinal contours are unremarkable. Osseous structures are intact. CONCLUSION: No acute disease. Josef Rich MD on October 08, 2016 at 13:28 Board Certified Radiologist. This report was verified electronically.
[2016-10-08] MEDS: PIPERACIL-TAZO 4.5 GM PREMIX 100 ML IV SCH ×2 (13:44→17:30)
--- NOTE | 2016-10-08 14:23 | EKG ---
Date Performed: 10/08/2016 Time Performed: 12:25:43 PTAGE: 56 years EKG: Marked baseline artifact Would repeat electrocardiogram PREVIOUS TRACING : 12/22/2015 13.41 DOCTOR: Jose Pritchett Interpretating Date/Time 10/08/2016 14:21:18
[2016-10-08 14:24] LABS: AUTOMATED NEUTROPHIL # 3.2 TH/MM3 (1.8-7.7); BASOPHIL % 0.2 % (0.0-2.0); EOSINOPHIL % 0.3 % (0.0-4.0); HEMATOCRIT 33.3 % (39.0-51.0); HEMO FLAGS DIFF FINAL; LYMPH % 3.3 % (9.0-44.0); LYMPHOCYTE # 0.1 TH/MM3 (1.0-4.8); MEAN CELL VOLUME 85.7 FL (80.0-100.0); MEAN CORPUSCULAR HEMOGLOBIN 27.5 PG (27.0-34.0); MEAN CORPUSCULAR HGB CONC 32.1 % (32.0-36.0); MONO % 2.6 % (0.0-8.0); NEUT % 93.6 % (16.0-70.0); PLATELET COUNT 185 TH/MM3 (150-450); RED BLOOD COUNT 3.89 MIL/MM3 (4.50-5.90); RED CELL DISTRIBUTION WIDTH 13.2 % (11.6-17.2); WHITE BLOOD COUNT 3.4 TH/MM3 (4.0-11.0)
[2016-10-08 14:30] LABS: APTT (PATIENT) 29.6 SEC (24.3-30.1); INTERNATIONAL NORMALIZED RATIO 1.1 RATIO; PROTHROMBIN TIME - PATIENT 11.9 SEC (9.8-11.6)
[2016-10-08 14:38] LABS: MAGNESIUM 1.8 MG/DL (1.5-2.5)
[2016-10-08 14:54] LABS: ALKALINE PHOSPHATASE 168 U/L (45-117); ALT (GPT) 69 U/L (12-78); ANION GAP 9 MEQ/L (5-15); AST (GOT) 44 U/L (15-37); BICARBONATE 22.1 MEQ/L (21.0-32.0); BLOOD UREA NITROGEN 12 MG/DL (7-18); CHLORIDE 109 MEQ/L (98-107); GLOMERULAR FILTRATION RATE 68 ML/MIN (>89); POTASSIUM 3.3 MEQ/L (3.5-5.1); SODIUM (NA) 140 MEQ/L (136-145); TOTAL BILIRUBIN ADULT 0.8 MG/DL (0.2-1.0)
[2016-10-08] MEDS ORDERED: POTASSIUM PHOSPHATE MONOBASIC 500 MG TAB PO ONE (15:15)
--- NOTE | 2016-10-08 15:17 | HHI.PR ---
Subjective Subjective Remarks alert, tired sensation responsive, drains X 2 in. in rm. color pale Hallicat this am (Mayda Odell) Review of Systems Constitutional Constitutional: Chills (resolved now), Fatigue, Weakness Constitutional Remarks 12 point ROS done. Positives noted. (Mayda Odell) GI/Abdomen GI/Abdominal Exam: Nausea (occ. with decreased appetite) GI/Abdomen Remarks bowel regimen, No BM X 2 days (Mayda Odell) Genitourinary Genitourinary: Dysuria (voided X 1 this am so far) (Mayda Odell) Musculoskeletal MS: Weakness (Mayda Odell) Integumentary Skin: Wounds Skin Remarks X 2 abd. drains (Mayda Odell) Psychiatric Psychiatric: Normal Mood (Mayda Odell) Vitals/Results Intake & Output 10/07/16 10/07/16 10/08/16 15:00 23:00 07:00 Intake Total 1894 ml Output Total 400 ml Balance 1494 ml Intake Oral 590 ml IV Total 1304 ml Output Urine Total 400 ml # Bowel Movements 0 Vital Signs Vital Signs Date Time Temp Pulse Resp B/P Pulse Ox O2 Delivery O2 Flow Rate FiO2 10/08/16 11:08 100 15.00 100 10/08/16 10:26 Room Air 10/08/16 08:00 98.5 74 18 112/62 96 10/08/16 04:00 98.1 72 16 112/67 98 10/08/16 00:00 Room Air 10/07/16 20:00 Room Air 10/07/16 19:53 98.2 79 16 104/60 96 10/07/16 19:53 101.1 90 16 114/70 98 10/07/16 15:59 100.6 91 18 119/74 97 Room Air (Mayda Odell) CBC/BMP: 10/08/16 1357 10/08/16 1357 Lab Results Laboratory Tests Test 10/08/16 10/08/16 11:50 13:57 Nasal Screen MRSA (PCR) MRSA NOT DETECTED White Blood Count 3.4 TH/MM3 Red Blood Count 3.89 MIL/MM3 Hemoglobin 10.7 GM/DL Hematocrit 33.3 % Mean Corpuscular Volume 85.7 FL Mean Corpuscular Hemoglobin 27.5 PG Mean Corpuscular Hemoglobin 32.1 % Concent Red Cell Distribution Width 13.2 % Platelet Count 185 TH/MM3 Mean Platelet Volume 7.0 FL Neutrophils (%) (Auto) 93.6 % Lymphocytes (%) (Auto) 3.3 % Monocytes (%) (Auto) 2.6 % Eosinophils (%) (Auto) 0.3 % Basophils (%) (Auto) 0.2 % Neutrophils # (Auto) 3.2 TH/MM3 Lymphocytes # (Auto) 0.1 TH/MM3 Monocytes # (Auto) 0.1 TH/MM3 Eosinophils # (Auto) 0.0 TH/MM3 Basophils # (Auto) 0.0 TH/MM3 CBC Comment DIFF FINAL Differential Comment Prothrombin Time 11.9 SEC Prothromb Time International 1.1 RATIO Ratio Activated Partial 29.6 SEC Thromboplast Time Fibrinogen 617 mg/dL Sodium Level 140 MEQ/L Potassium Level 3.3 MEQ/L Chloride Level 109 MEQ/L Carbon Dioxide Level 22.1 MEQ/L Anion Gap 9 MEQ/L Blood Urea Nitrogen 12 MG/DL Creatinine 1.12 MG/DL Estimat Glomerular Filtration 68 ML/MIN Rate Random Glucose 118 MG/DL Lactic Acid Level 2.4 mmol/L Calcium Level 7.9 MG/DL Phosphorus Level 2.0 MG/DL Magnesium Level 1.8 MG/DL Total Bilirubin 0.8 MG/DL Aspartate Amino Transf 44 U/L (AST/SGOT) Alanine Aminotransferase 69 U/L (ALT/SGPT) Alkaline Phosphatase 168 U/L Total Creatine Kinase 77 U/L Total Protein 5.7 GM/DL Albumin 2.2 GM/DL Microbiology Microbiology 10/08/16 Fungal Smear, Received Pending 10/08/16 Fungal Culture, Received Pending 10/08/16 Gram Stain, Received Pending 10/08/16 Wound Culture, Received Pending 10/08/16 Gram Stain, Received Pending 10/08/16 Wound Culture, Received Pending 10/08/16 Fungal Smear, Received Pending 10/08/16 Fungal Culture, Received Pending 10/08/16 Aerobic Blood Culture, Received Pending 10/08/16 Anaerobic Blood Culture, Received Pending 10/08/16 Aerobic Blood Culture, Received Pending 10/08/16 Anaerobic Blood Culture, Received Pending Imaging Remarks Last Impressions Chest X-Ray 10/08/16 0000 Signed Impressions: Service Date/Time: Saturday, October 08, 2016 12:26 - CONCLUSION: No acute disease. Josef Rich MD Abscess Drainage CT 10/08/16 0000 Signed Impressions: Service Date/Time: Saturday, October 08, 2016 09:09 - CONCLUSION: Uncomplicated CT guided drainage with placement of 8 Stateless locking pigtail. Josef Rich MD Abdomen/Pelvis CT 10/07/16 1408 Signed Impressions: Service Date/Time: September 15:43 - CONCLUSION: 1. Large bilateral pelvic fluid collections which may be postsurgical seromas. There is significant compression of the distal ureters and bladder resulting in mild to moderate bilateral hydronephrosis. 2. Status post prostatectomy with removal of seminal vesicles. 3. Large calcified cystic lesion in the lower pole the left kidney. If prior imaging can be obtained comparison is recommended. 4. Lower lumbar fusion. Wolfgang Whitfield MD Current Medications Administered Medications Medications (Trade) Dose Ordered Sig/Kamryn Route PRN Reason Start Time Stop Time Status Last Admin Dose Admin Sodium Chloride (NS Flush) 2 ml BID IV FLUSH 10/07/16 21:00 10/08/16 08:35 Acetaminophen (Tylenol) 650 mg Q4H PRN PO TEMP > 100.4 10/07/16 17:30 10/07/16 20:47 Ondansetron HCl (Zofran Inj) 4 mg Q6H PRN IVP NAUSEA OR VOMITING 10/07/16 17:30 10/08/16 06:43 Ketorolac Tromethamine (Toradol Inj) 15 mg Q6H PRN IVP Pain 3-5; if unable to take PO 10/07/16 17:30 10/12/16 17:29 10/08/16 06:44 Senna/Docusate Sodium (Daniela-Colace) 1 tab BID PO 10/07/16 21:00 10/08/16 08:35 Duloxetine HCl (Cymbalta Dr) 20 mg HS PO 10/07/16 21:00 10/07/16 22:48 Fluticasone Propionate 2 spray 2 spray DAILY EACH NARE 10/08/16 09:00 10/08/16 09:46 Vancomycin HCl 1500 mg/Sodium Chloride 515 ml @ 250 mls/hr Q12H IV 10/08/16 00:00 10/08/16 13:44 Sodium Chloride (NS 1000 ml Inj) 1,000 ml @ 84 mls/hr [id number] IV 10/08/16 12:02 10/08/16 13:45 Miscellaneous Information 1 1 [id number] XX 10/08/16 12:15 10/08/16 13:45 Piperacillin Sod/ Tazobactam Sod (Zosyn 4.5 Gm Premix) 100 ml @ 200 mls/hr Q6H IV 10/08/16 13:00 10/08/16 13:44 (Mayda Odell) Physical Exam General General Appearance: Well Developed, Well Nourished, Pale (Mayda Odell. BREADMAN ) Eyes Eye Exam: Pupils Equal, Pupils Reactive (Mayda Odell BREADMAN) Ears & Nose Ears & Nose Exam: Nasal Mucosa [place] (pale) (Mayda Odell BREADMAN) Throat Throat Exam: Oral Mucosa [place] & Moist (pale) (Mayda Odell. BREADMAN) Neck Neck Exam: Neck Supple (Mayda Odell. BREADMAN) Pulmonary Resp Exam: Clear Bilaterally (Mayda Odell. BREADMAN) Cardiology CV Exam: Regular, Normal Sinus Rhythm (Mayda Odell. BREADMAN) Gastrointestinal/Abdomen GI Exam: Bowel Sounds Hypoactive GI Remarks active upper regions, soft lower (Mayda Odell. BREADMAN) Musculoskeletal MS Exam: Joints Intact (Mayda Odell. BREADMAN) Integumentary Skin Exam: Warm, Dry, Intact (Mayda Odell. BREADMAN) Extremeties Extremities Exam: No Edema (Mayda Odell. BREADMAN) Neurologic Neuro Exam: Alert, Awake, Oriented, Speech Clear, Moving All Extremities Neuro Remarks generalized weakness (Mayda Odell. BREADMAN) Assessment/Plan Assessment/Plan (1) Fever (2) Bilateral hydronephrosis (3) Postoperative seroma involving genitourinary system after genitourinary procedure (4) Kelton's syndrome (5) GERD (gastroesophageal reflux disease) (6) Chronic low back pain (7) neurostiumulator in place 8. Sepsis with lactic acidosis 56-year-old male status post prostatectomy August 04, 2016, history of low back pain, has neurostimulator in in place. Presents to the emergency room with fever, malaise, right flank buttock pain. CT abdomen and pelvis with findings of large bilateral pelvic fluid collections which may be postsurgical seromas. There is significant compression of the distal ureters and bladder resulting [id number] bilateral hydronephrosis. drain placement today, acute event of post op chills uncontrolled, malaise, Hallicat called. Patient now in the intensive care setting, probable sepsis, bilateral abd drains in. Sepsis, now recieving liters X 3 for now, 250 cc hr. BP 112, 62. WBC count decreased to 3.4 HGB anemic at 10,7, probable diluted with IVFs. monitor alk phos 122, Potassium 3.3, phosphorus 2. currently being followed per intensivists. Acute Hypoxia, now controlled and mained, O2 NC prn. History of Kelton syndrome, had a recent flareup that require Medrol Dosepak Continue to monitor patient Chronic low back pain, has a neuro stimulator in place. Follows up regularly with Dr. Kaye according to record, Toradol is effective for his pain, requesting no narcotics. -Continue with Cymbalta 20 by mouth daily at bedtime, he uses for pain management GERD Continue with Zantac 150 mg by mouth twice a day Bowel regimen, started Pericolace 2 daily, on Day 2 , no BM, but has had minimal intake. Home medications reviewed, initiated as indicated SCDs for DVT prophylaxis (Mayda Odell) Assessment/Plan Patient seen and examined as above [id number] time spent with patient Labs reviewed Discussed with RN Discussed with patient and at bedside above even noted renewable energy consultant helps appreciated Plan of care discussed with [place] (Mary Odom MD) Mayda Odell Oct 08, 2016 15:17 Mary Odom MD Oct 08, 2016 15:58
[2016-10-08 16:05] LABS: LACTIC ACID GHOST NOT REPORTABLE
[2016-10-08] MEDS ORDERED: DOCUSATE SODIUM 50 MG/SENNA 8.6 MG TAB PO SCH (21:00)
[2016-10-08] MEDS ORDERED: SODIUM CHLORIDE 0.9% FLUSH 10 ML FLUSH IV FLUSH SCH (21:00)
[2016-10-08] MEDS: DULoxetine HCl DR 20 MG CAP PO SCH (21:02)
[2016-10-09] VITALS (22 sets, daily range): BP systolic 99–128; BP diastolic 60–80; PULSE 72–92; RESP 18–41; TEMP 97.6–99.2; O2SAT 94–98
[2016-10-09] MEDS: ONDANSETRON HCL 4 MG/2 ML VIAL IVP PRN ×2 (00:19→05:24)
[2016-10-09] MEDS: SODIUM CHLOR 0.9% 1000 ML INJ 1,000 ML IV SCH ×3 (00:20→16:35)
[2016-10-09] MEDS: VANCOMYCIN INJ 1,500 MG in SODIUM CHLORID 0.9% 500 ML INJ 500 ML IV SCH ×2 (00:20→12:29)
[2016-10-09] MEDS: PIPERACIL-TAZO 4.5 GM PREMIX 100 ML IV SCH ×4 (00:20→19:31)
[2016-10-09] MEDS: CHLORHEXIDINE GLUCONATE 2 % 1 PACK (2 CLOTHS) TOP SCH (00:26)
[2016-10-09] MEDS: KETOROLAC TROMETHAMINE 30 MG/ML (IVP) VIAL IVP PRN ×3 (05:29→19:34)
[2016-10-09 05:55] LABS: ALT (GPT) 63 U/L (12-78); ANION GAP 9 MEQ/L (5-15); AST (GOT) 38 U/L (15-37); BICARBONATE 18.9 MEQ/L (21.0-32.0); BLOOD UREA NITROGEN 9 MG/DL (7-18); CHLORIDE 111 MEQ/L (98-107); GLOMERULAR FILTRATION RATE 83 ML/MIN (>89); MAGNESIUM 1.7 MG/DL (1.5-2.5); POTASSIUM 3.9 MEQ/L (3.5-5.1); SODIUM (NA) 139 MEQ/L (136-145)
[2016-10-09 05:57] LABS: ALKALINE PHOSPHATASE 190 U/L (45-117); TOTAL BILIRUBIN ADULT 0.9 MG/DL (0.2-1.0)
[2016-10-09] MEDS: SODIUM CHLORIDE 0.9% FLUSH 10 ML FLUSH IV FLUSH SCH ×2 (09:00→19:31)
[2016-10-09] MEDS: DOCUSATE SODIUM 50 MG/SENNA 8.6 MG TAB PO SCH ×3 (09:00→19:32)
[2016-10-09] MEDS: FLUTICASONE PROPIONATE 50 MCG/ACT 16 GM NASAL SPRAY EACH NARE SCH (09:00)
--- NOTE | 2016-10-09 09:41 | HHI.PR ---
Subjective Subjective Remarks Awake responsive, complaints of headache, history of migraines drains X 2 in. draining clear serous fluid Low-grade fever 99.1 Nausea at times (Mayda Odell) Review of Systems Constitutional Constitutional: Chills (resolved now), Fatigue, Weakness Constitutional Remarks 12 point ROS done. Positives noted. (Mayda Odell) GI/Abdomen GI/Abdominal Exam: Nausea (occ. with decreased appetite), Constipation ( responded to medication has had 3 loose BMs this morning) (Mayda Odell ) Genitourinary Genitourinary: Dysuria (voiding without difficulty now) (Mayda Odell) Musculoskeletal MS: Weakness (Mayda Odell) Integumentary Skin: Wounds Skin Remarks X 2 abd. drains (Mayda Odell) Neurologic Neurologic: Headache (history of migraines) (Mayda Odell) Psychiatric Psychiatric: Normal Mood (Mayda Odell) Vitals/Results Intake & Output 10/08/16 10/08/16 10/09/16 15:00 23:00 07:00 Intake Total 931 ml 928 ml 882 ml Output Total 400 ml 625 ml 575 ml Balance 531 ml 303 ml 307 ml Intake Oral 240 ml 200 ml 100 ml IV Total 691 ml 728 ml 782 ml Output Urine Total 0 ml 400 ml 400 ml Drainage Total 400 ml 225 ml 175 ml # Bowel Movements 0 1 3 Vital Signs Vital Signs Date Time Temp Pulse Resp B/P Pulse Ox O2 Delivery O2 Flow Rate FiO2 10/09/16 08:01 95 21 10/09/16 06:00 76 10/09/16 04:00 99.1 76 20 101/61 94 10/09/16 04:00 76 10/09/16 02:00 78 10/09/16 00:00 98.7 84 24 99/61 94 10/09/16 00:00 84 10/08/16 22:10 98 Nasal Cannula 2.00 10/08/16 22:00 81 10/08/16 20:00 99.0 84 19 103/60 96 10/08/16 20:00 84 10/08/16 19:00 Room Air 10/08/16 18:00 100 10/08/16 16:21 96 Nasal Cannula 2.00 10/08/16 16:00 100 10/08/16 16:00 99.1 100 26 109/67 96 10/08/16 14:00 107 10/08/16 12:00 100 10/08/16 12:00 99.1 100 21 128/64 96 10/08/16 11:08 100 15.00 100 10/08/16 11:05 83 22 121/75 95 10/08/16 10:35 77 20 127/80 97 10/08/16 10:26 Room Air 10/08/16 10:20 97.8 80 20 128/81 95 (Mayda Odell) CBC/BMP: 10/08/16 1357 10/09/16 0455 Lab Results Laboratory Tests Test 10/08/16 10/08/16 10/08/16 10/09/16 11:50 13:57 17:50 04:55 Nasal Screen MRSA (PCR) MRSA NOT DETECTED White Blood Count 3.4 TH/MM3 Red Blood Count 3.89 MIL/MM3 Hemoglobin 10.7 GM/DL Hematocrit 33.3 % Mean Corpuscular Volume 85.7 FL Mean Corpuscular Hemoglobin 27.5 PG Mean Corpuscular Hemoglobin 32.1 % Concent Red Cell Distribution Width 13.2 % Platelet Count 185 TH/MM3 Mean Platelet Volume 7.0 FL Neutrophils (%) (Auto) 93.6 % Lymphocytes (%) (Auto) 3.3 % Monocytes (%) (Auto) 2.6 % Eosinophils (%) (Auto) 0.3 % Basophils (%) (Auto) 0.2 % Neutrophils # (Auto) 3.2 TH/MM3 Lymphocytes # (Auto) 0.1 TH/MM3 Monocytes # (Auto) 0.1 TH/MM3 Eosinophils # (Auto) 0.0 TH/MM3 Basophils # (Auto) 0.0 TH/MM3 CBC Comment DIFF FINAL Differential Comment Prothrombin Time 11.9 SEC Prothromb Time International 1.1 RATIO Ratio Activated Partial 29.6 SEC Thromboplast Time Fibrinogen 617 mg/dL Sodium Level 140 MEQ/L 139 MEQ/L Potassium Level 3.3 MEQ/L 3.9 MEQ/L Chloride Level 109 MEQ/L 111 MEQ/L Carbon Dioxide Level 22.1 MEQ/L 18.9 MEQ/L Anion Gap 9 MEQ/L 9 MEQ/L Blood Urea Nitrogen 12 MG/DL 9 MG/DL Creatinine 1.12 MG/DL 0.94 MG/DL Estimat Glomerular Filtration 68 ML/MIN 83 ML/MIN Rate Random Glucose 118 MG/DL 111 MG/DL Lactic Acid Level 2.4 mmol/L 1.6 mmol/L Calcium Level 7.9 MG/DL 8.0 MG/DL Phosphorus Level 2.0 MG/DL 3.0 MG/DL Magnesium Level 1.8 MG/DL 1.7 MG/DL Total Bilirubin 0.8 MG/DL 0.9 MG/DL Aspartate Amino Transf 44 U/L 38 U/L (AST/SGOT) Alanine Aminotransferase 69 U/L 63 U/L (ALT/SGPT) Alkaline Phosphatase 168 U/L 190 U/L Total Creatine Kinase 77 U/L Total Protein 5.7 GM/DL 6.1 GM/DL Albumin 2.2 GM/DL 2.0 GM/DL Microbiology Microbiology 10/08/16 Fungal Smear - Final, Resulted NO FUNGAL ELEMENTS SEEN. 10/08/16 Fungal Culture, Resulted Pending 10/08/16 Gram Stain - Final, Resulted 10/08/16 Wound Culture, Resulted Pending 10/08/16 Gram Stain - Final, Resulted 10/08/16 Wound Culture, Resulted Pending 10/08/16 Fungal Smear, Received Pending 10/08/16 Fungal Culture, Received Pending 10/08/16 Aerobic Blood Culture, Received Pending 10/08/16 Anaerobic Blood Culture, Received Pending 10/08/16 Aerobic Blood Culture, Received Pending 10/08/16 Anaerobic Blood Culture, Received Pending Current Medications Administered Medications Medications (Trade) Dose Ordered Sig/Kamryn Route PRN Reason Start Time Stop Time Status Last Admin Dose Admin Sodium Chloride (NS Flush) 2 ml BID IV FLUSH 10/07/16 21:00 10/08/16 21:02 Acetaminophen (Tylenol) 650 mg Q4H PRN PO TEMP > 100.4 10/07/16 17:30 10/07/16 20:47 Ondansetron HCl (Zofran Inj) 4 mg Q6H PRN IVP NAUSEA OR VOMITING 10/07/16 17:30 10/09/16 05:24 Ketorolac Tromethamine (Toradol Inj) 15 mg Q6H PRN IVP Pain 3-5; if unable to take PO 10/07/16 17:30 10/12/16 17:29 10/09/16 05:29 Senna/Docusate Sodium (Daniela-Colace) 1 tab BID PO 10/07/16 21:00 10/08/16 21:02 Duloxetine HCl (Cymbalta Dr) 20 mg HS PO 10/07/16 21:00 10/08/16 21:02 Fluticasone Propionate 2 spray 2 spray DAILY EACH NARE 10/08/16 09:00 10/08/16 09:46 Vancomycin HCl 1500 mg/Sodium Chloride 515 ml @ 250 mls/hr Q12H IV 10/08/16 00:00 10/09/16 00:20 Sodium Chloride (NS 1000 ml Inj) 1,000 ml @ 84 mls/hr [id number] IV 10/08/16 12:02 10/09/16 00:20 Miscellaneous Information 1 [id number] XX 10/08/16 12:15 10/08/16 13:45 Chlorhexidine Gluconate 3 pack 3 pack Taper DAILY@04 TOP 10/09/16 04:00 10/05/17 03:59 10/09/16 00:26 Piperacillin Sod/ Tazobactam Sod (Zosyn 4.5 Gm Premix) 100 ml @ 200 mls/hr Q6H IV 10/08/16 13:00 10/09/16 06:09 Senna/Docusate Sodium (Daniela-Colace) 2 tab DAILY PO 10/08/16 15:15 10/08/16 17:07 (Mayda Odell) Physical Exam General General Appearance: Well Developed, Well Nourished, Pale (Mayda Odell ) Eyes Eye Exam: Pupils Equal, Pupils Reactive (Mayda Odell) Ears & Nose Ears & Nose Exam: Nasal Mucosa [place] (pale) (Mayda Odell) Throat Throat Exam: Oral Mucosa [place] & Moist (pale) (Mayda Odell) Neck Neck Exam: Neck Supple (Mayda Odell) Pulmonary Resp Exam: Clear Bilaterally ([place],Mayda M. [employer]EARCH [employer] SCI[employer]IST) Cardiology CV Exam: Regular, Normal Sinus Rhythm (Jose R,Susan M. [employer] SCI[employer]IST) Gastrointestinal/Abdomen GI Exam: Bowel Sounds Hypoactive GI Remarks active upper regions, soft lower ([place],Mayda M. [employer] SO[employer] SCI[employer]IST) Musculoskeletal MS Exam: Joints Intact (Jose RMayda M. [employer] SO[employer] SCI[employer]IST) Integumentary Skin Exam: Warm, Dry, Intact (Jose RMayda M. [employer]EARCH SO[employer] SCIENTIST) Extremeties Extremities Exam: No Edema ([place],Mayda M. [employer] SCI[employer]IST) Neurologic Neuro Exam: Alert, Awake, Oriented, Speech Clear, Moving All Extremities Neuro Remarks generalized weakness ([place],Mayda M. [employer] SO[employer] SCI[employer]IST) Assessment/Plan Assessment/Plan (1) Fever (2) Bilateral hydronephrosis (3) Postoperative seroma involving genitourinary system after genitourinary procedure (4) Kelton's syndrome (5) GERD (gastroesophageal reflux disease) (6) Chronic low back pain (7) neurostiumulator in place 8. Sepsis with lactic acidosis 56-year-old male status post prostatectomy August 04, 2016, history of low back pain, has neurostimulator in in place. Presents to the emergency room with fever, malaise, right flank buttock pain. CT abdomen and pelvis with findings of large bilateral pelvic fluid collections which may be postsurgical seromas. There is significant compression of the distal ureters and bladder resulting [id number] bilateral hydronephrosis. drain placement today, acute event of post op chills uncontrolled, malaise, Hallicat called. Patient now in the intensive care setting, probable sepsis, bilateral abd drains in. Sepsis, appendectomy fluids continue hydration Leukopenia, current labs pending Anemia monitoring hemoglobin results still pending, probable diluted with IVFs. monitor Potassium now normal at 3.9, phosphorus level trended up currently being followed per intensivists. Acute Hypoxia, now controlled and mained, O2 NC prn., Resolved History of Kelton syndrome, had a recent flareup that require Medrol Dosepak Continue to monitor patient History of migraines, complaints of headache this morning and requesting his Imitrex from his home meds, restarted Chronic low back pain, has a neuro stimulator in place. Follows up regularly with Dr. Kaye according to record, Toradol is effective for his pain, requesting no narcotics. -Continue with Cymbalta 20 by mouth daily at bedtime, he uses for pain management GERD Continue with Zantac 150 mg by mouth twice a day Bowel regimen, given laxatives yesterday with positive results, still having some loose stools 3 in the past 24 hours. Daniela-Colace held today SCDs for DVT prophylaxis Discussed with patient Discussed with Dr. Odom, seen on his behalf Patient continues to trend in the right direction responding to IV fluids and antibiotics, bilateral drains continue output, mild nausea continues Possible transition out of the intensive care setting tomorrow. (Mayda Odell) Assessment/Plan Patient seen and examined as above [id number] time spent with patient Labs reviewed including cultures Plan of care discussed with [employer] SCI[employer]IST Discussed with patient and at bedside discussed with RN Plan for infectious disease consult Continue antibiotics Overall a stable enough to transfer out of unit (Mary Odom MD) Mayda Odell Oct 09, 2016 09:41 Mary Odom MD Oct 09, 2016 15:43
[2016-10-09] MEDS ORDERED: SUMAtriptan SUCCINATE 50 MG TAB PO PRN (10:15)
[2016-10-09 11:17] LABS: AUTOMATED NEUTROPHIL # 7.2 TH/MM3 (1.8-7.7); BASOPHIL % 0.1 % (0.0-2.0); EOSINOPHIL % 0.5 % (0.0-4.0); HEMATOCRIT 31.5 % (39.0-51.0); HEMO FLAGS DIFF FINAL; LYMPH % 5.3 % (9.0-44.0); LYMPHOCYTE # 0.4 TH/MM3 (1.0-4.8); MEAN CELL VOLUME 85.7 FL (80.0-100.0); MEAN CORPUSCULAR HEMOGLOBIN 27.9 PG (27.0-34.0); MEAN CORPUSCULAR HGB CONC 32.6 % (32.0-36.0); MONO % 6.1 % (0.0-8.0); PLATELET COUNT 169 TH/MM3 (150-450); RED BLOOD COUNT 3.68 MIL/MM3 (4.50-5.90); WHITE BLOOD COUNT 8.2 TH/MM3 (4.0-11.0)
[2016-10-09] MEDS ORDERED: PHARMACY ORDERED LAB ONE (11:45)
[2016-10-09] MEDS: PANTOPRAZOLE SODIUM 40 MG VIAL IV SCH (12:29)
[2016-10-09] MEDS: DULoxetine HCl DR 20 MG CAP PO SCH (19:31)
[2016-10-09] MEDS: HEPARIN SODIUM - SQ 10,000 UNITS/ML VIAL SQ SCH (19:32)
[2016-10-10] VITALS (8 sets, daily range): BP systolic 103–125; BP diastolic 65–72; PULSE 71–92; RESP 18–20; TEMP 96.4–98.9; O2SAT 94–98
[2016-10-10] MEDS ORDERED: VANCOMYCIN INJ 1,250 MG in SODIUM CHLOR 0.9% 250 ML INJ 250 ML IV SCH ×2
[2016-10-10] MEDS: VANCOMYCIN INJ 1,250 MG in SODIUM CHLOR 0.9% 250 ML INJ 250 ML IV SCH ×2 (00:16→13:08)
[2016-10-10] MEDS: KETOROLAC TROMETHAMINE 30 MG/ML (IVP) VIAL IVP PRN ×2 (01:29→08:13)
[2016-10-10] MEDS: PIPERACIL-TAZO 4.5 GM PREMIX 100 ML IV SCH ×3 (01:32→14:24)
[2016-10-10] MEDS: CHLORHEXIDINE GLUCONATE 2 % 1 PACK (2 CLOTHS) TOP SCH ×2 (04:00→22:57)
[2016-10-10] MEDS: HEPARIN SODIUM - SQ 10,000 UNITS/ML VIAL SQ SCH ×2 (08:12→22:14)
[2016-10-10] MEDS: PANTOPRAZOLE SODIUM 40 MG VIAL IV SCH (08:12)
[2016-10-10] MEDS: FLUTICASONE PROPIONATE 50 MCG/ACT 16 GM NASAL SPRAY EACH NARE SCH (08:12)
[2016-10-10] MEDS: SODIUM CHLORIDE 0.9% FLUSH 10 ML FLUSH IV FLUSH SCH ×2 (08:13→22:14)
[2016-10-10] MEDS: DOCUSATE SODIUM 50 MG/SENNA 8.6 MG TAB PO SCH ×2 (09:00→21:00)
[2016-10-10 09:49] LABS: HEMATOCRIT 33.1 % (39.0-51.0); MEAN CELL VOLUME 84.9 FL (80.0-100.0); MEAN CORPUSCULAR HEMOGLOBIN 27.4 PG (27.0-34.0); MEAN CORPUSCULAR HGB CONC 32.3 % (32.0-36.0); PLATELET COUNT 221 TH/MM3 (150-450); RED CELL DISTRIBUTION WIDTH 13.3 % (11.6-17.2); REVIEW FLAG FINAL; WHITE BLOOD COUNT 11.2 TH/MM3 (4.0-11.0)
[2016-10-10 10:17] LABS: BICARBONATE 22.9 MEQ/L (21.0-32.0); POTASSIUM 3.4 MEQ/L (3.5-5.1)
[2016-10-10] MEDS: SODIUM CHLOR 0.9% 1000 ML INJ 1,000 ML IV SCH ×2 (12:20→22:14)
--- NOTE | 2016-10-10 14:01 | HHI.PR ---
Subjective Remarks pt still has some pain in lower abd no n/v no trouble urination has watery stool today ROS for 12 point system is otherwise unremarkable Objective Objective Results - Vital Signs Date Time Temp Pulse Resp B/P Pulse Ox O2 Delivery O2 Flow Rate FiO2 10/10/16 12:04 96.4 73 19 105/71 94 10/10/16 08:16 97.2 79 20 104/66 96 10/10/16 04:14 97.4 81 20 125/65 95 10/10/16 00:13 98.9 92 18 113/68 94 10/10/16 00:00 88 10/09/16 21:30 Room Air 10/09/16 21:19 97.6 87 18 108/66 96 10/09/16 19:48 99.2 86 20 107/62 96 10/09/16 19:47 96 Room Air 10/09/16 19:43 96 21 10/09/16 19:15 85 10/09/16 18:00 92 30 105/74 95 10/09/16 17:00 90 23 107/60 98 10/09/16 16:00 87 21 114/74 95 10/09/16 15:00 84 23 114/77 95 10/09/16 14:00 84 41 123/70 94 I/O 10/09/16 10/09/16 10/09/16 10/10/16 10/10/16 10/10/16 07:00 15:00 23:00 07:00 15:00 23:00 Intake Total 882 ml 2762 ml 120 ml Output Total 575 ml 685 ml 450 ml Balance 307 ml 2077 ml -330 ml Intake Oral 100 ml 240 ml 120 ml IV Total 782 ml 2522 ml Output Urine Total 400 ml 200 ml 275 ml Drainage Total 175 ml 485 ml 175 ml # Voids 1 2 2 # Bowel Movements 3 5 2 Result Diagram: 10/10/16 0835 10/10/16 0835 Imaging Last Impressions Chest X-Ray 10/07/161407 Signed Impressions: Service Date/Time: September 14:08 - CONCLUSION: No acute disease. Josef Rich MD Abdomen/Pelvis CT [id number]/07/161407 Signed Impressions: Service Date/Time: September 15:43 - CONCLUSION: 1. Large bilateral pelvic fluid collections which may be postsurgical seromas. There is significant compression of the distal ureters and bladder resulting in mild to moderate bilateral hydronephrosis. 2. Status post prostatectomy with removal of seminal vesicles. 3. Large calcified cystic lesion in the lower pole the left kidney. If prior imaging can be obtained comparison is recommended. 4. Lower lumbar fusion. Wolfgang Whitfield MD Other Results Laboratory Tests Test 10/10/16 08:35 White Blood Count 11.2 Red Blood Count 3.90 Hemoglobin 10.7 Hematocrit 33.1 Mean Corpuscular Volume 84.9 Mean Corpuscular Hemoglobin 27.4 Mean Corpuscular Hemoglobin 32.3 Concent Red Cell Distribution Width 13.3 Platelet Count 221 Mean Platelet Volume 7.6 Sodium Level 141 Potassium Level 3.4 Chloride Level 111 Carbon Dioxide Level 22.9 Anion Gap 7 Blood Urea Nitrogen 15 Creatinine 1.91 Estimat Glomerular Filtration 36 Rate Random Glucose 92 Calcium Level 8.8 Date/Time Procedure Status Source Growth 10/08/16 13:57 Aerobic Blood Culture - Preliminary Resulted Blood Peripheral NO GROWTH IN 2 DAYS 10/08/16 13:57 Anaerobic Blood Culture - Preliminary Resulted Blood Peripheral NO GROWTH IN 2 DAYS 10/08/16 09:48 Gram Stain - Final Resulted Abscess Abdomen 10/08/16 09:48 Wound Culture - Preliminary Resulted Abscess Abdomen NO GROWTH IN 48 HOURS. 10/08/16 09:48 Fungal Smear - Final Resulted Fluid Other NO FUNGAL ELEMENTS SEEN. 10/08/16 09:48 Fungal Culture Resulted Fluid Other Pending 10/08/16 09:48 Fungal Smear Received Abscess Abdomen Pending 10/08/16 09:48 Fungal Culture Received Abscess Abdomen Pending 10/08/16 09:48 Cancelled Fluid Other 10/07/16 14:40 Influenza Types A,B Antigen (BÁRBARA) - Final Complete Nasal Aspirate NEGATIVE FOR FLU A AND B ANTIGEN.... Physical Exam Physical Exam PHYSICAL EXAMINATION GENERAL: This is a well-developed, well-nourished male who appears to be in no acute distress. He is alert oriented and awake. HEAD: Normocephalic without any lesion or mass noted. Facial features appear symmetric. EYES:Normal eye movement, - Icterus. - Conj congestion. OROPHARYNGEAL: Oropharynx without erythema or edema. MOUTH/THROAT: Tongue midline. Buccal mucosa is moist. NECK: Supple. No nuchal rigidity or lymphadenopathy. Trachea midline without deviation. Thyroid not palpable, no bruits appreciated. CARDIAC: Regular rhythm, regular rate, S1 and S2 are heard. Murmur []; no gallops or rubs. LUNGS: Clear to auscultation bilaterally. no wheeze, rhonchi or rale. No use of accessory muscles on inspiration or expiration. ABDOMEN: Soft, nontender, no organomegaly or masses. Bowel sounds are heard in all four quadrants. No rebound. No guarding. EXTREMITIES: no edema. Pulses equal bilateral. no cyanosis. NEUROLOGICAL: Patient mood and affect appropriate. Cranial nerves II through XII grossly intact. Muscle strength 5/5 in the upper and lower extremities bilaterally. Deep tendon reflexes are 2+ in the upper and lower extremities bilaterally. SKIN:Warm and moist PSYCH: Mood and affect appropriate A/P Assessment and Plan (1) Fever (2) Bilateral hydronephrosis (3) Postoperative seroma involving genitourinary system after genitourinary procedure (4) Kelton's syndrome (5) GERD (gastroesophageal reflux disease) (6) Chronic low back pain (7) neurostiumulator in place 8. Sepsis with lactic acidosis 56-year-old male status post prostatectomy August 04, 2016, history of low back pain, has neurostimulator in in place. Presents to the emergency room with fever, malaise, right flank buttock pain. CT abdomen and pelvis with findings of large bilateral pelvic fluid collections which may be postsurgical seromas. There is significant compression of the distal ureters and bladder resulting [id number] bilateral hydronephrosis. drain placement today, acute event of post op chills uncontrolled, malaise, Hallicat calledon day of drain placement. Patient now in the intensive care setting, probable sepsis, bilateral abd drains in. Sepsis, appendectomy fluids continue hydration leukocytosis, current labs pending Anemia monitoring hemoglobin results still pending, probable diluted with IVFs. monitor Potassium now normal at 3.4, plan for replacement inc creatinine will get us kidney and nephrology consult cont iv hydration Acute Hypoxia, now controlled and mained, O2 NC prn., Resolved History of Kelton syndrome, had a recent flareup that require Medrol Dosepak Continue to monitor patient History of migraines, complaints of headache this morning and requesting his Imitrex from his home meds, restarted Chronic low back pain, has a neuro stimulator in place. Follows up regularly with Dr. Kaye according to record, Toradol is effective for his pain, requesting no narcotics. -Continue with Cymbalta 20 by mouth daily at bedtime, he uses for pain management GERD Continue with Zantac 150 mg by mouth twice a day Bowel regimen, given laxatives yesterday with positive results, still having some loose stools 3 in the past 24 hours. Daniela-Colace held today SCDs for DVT prophylaxis dw rn dw pt and at [facility] Mary Odom MD Oct 10, 2016 14:01
[2016-10-10] MEDS ORDERED: HYDROmorphone HCL PF 1 MG/ML VIAL IV PUSH PRN (14:15)
--- NOTE | 2016-10-10 14:18 | HHI.PR ---
Objective Objective Results - Vital Signs Date Time Temp Pulse Resp B/P Pulse Ox O2 Delivery O2 Flow Rate FiO2 10/10/16 12:04 96.4 73 19 105/71 94 10/10/16 08:16 97.2 79 20 104/66 96 10/10/16 04:14 97.4 81 20 125/65 95 10/10/16 00:13 98.9 92 18 113/68 94 10/10/16 00:00 88 10/09/16 21:30 Room Air 10/09/16 21:19 97.6 87 18 108/66 96 10/09/16 19:48 99.2 86 20 107/62 96 10/09/16 19:47 96 Room Air 10/09/16 19:43 96 21 10/09/16 19:15 85 10/09/16 18:00 92 30 105/74 95 10/09/16 17:00 90 23 107/60 98 10/09/16 16:00 87 21 114/74 95 10/09/16 15:00 84 23 114/77 95 I/O 10/09/16 10/09/16 10/09/16 10/10/16 10/10/16 10/10/16 07:00 15:00 23:00 07:00 15:00 23:00 Intake Total 882 ml 2762 ml 120 ml Output Total 575 ml 685 ml 450 ml Balance 307 ml 2077 ml -330 ml Intake Oral 100 ml 240 ml 120 ml IV Total 782 ml 2522 ml Output Urine Total 400 ml 200 ml 275 ml Drainage Total 175 ml 485 ml 175 ml # Voids 1 2 2 # Bowel Movements 3 5 2 Result Diagram: 10/10/16 0835 10/10/16 0835 Physical Exam Physical Exam PHYSICAL EXAMINATION GENERAL: This is a well-developed, well-nourished male who appears to be in no acute distress. He is alert and awake, []. HEAD: Normocephalic without any lesion or mass noted. Facial features appear symmetric. OROPHARYNGEAL: Oropharynx without erythema or edema. NECK: Supple. No nuchal rigidity or lymphadenopathy. Trachea midline without deviation. CARDIAC: Regular rhythm, regular rate, S1 and S2 are heard. Murmur []; no gallops or rubs. LUNGS: Clear to auscultation bilaterally. [] wheeze, [] rhonchi or [] rale. No use of accessory muscles on inspiration or expiration. ABDOMEN: Soft, nontender, no organomegaly or masses. Bowel sounds are heard in all four quadrants. No rebound. No guarding. EXTREMITIES: [] edema. Pulses equal bilateral. [] cyanosis. NEUROLOGICAL: Patient mood and affect appropriate. No focal deficit SKIN:Warm and moist A/P Assessment and Plan Assessment and Plan (1) Fever (2) Bilateral hydronephrosis (3) Postoperative seroma involving genitourinary system after genitourinary procedure (4) Kelton's syndrome (5) GERD (gastroesophageal reflux disease) (6) Chronic low back pain (7) neurostiumulator in place 8. Sepsis with lactic acidosis 56-year-old male status post prostatectomy August 04, 2016, history of low back pain, has neurostimulator in in place. Presents to the emergency room with fever, malaise, right flank buttock pain. CT abdomen and pelvis with findings of large bilateral pelvic fluid collections which may be postsurgical seromas. There is significant compression of the distal ureters and bladder resulting [id number] bilateral hydronephrosis. drain placement today, acute event of post op chills uncontrolled, malaise, Hallicat calledon day of drain placement. Patient was in the intensive care setting, sepsis which is stabilizing with vancomycin and Zosyn, hydration, transitioned out to private room on 71 Sepsis, appendectomy fluids continue hydration leukocytosis, now mildly elevated to 11.2, initially was 3.4 on day of drain placement. Wound abscess positive for viridans Streptococcus, maintain on IV antibiotics Anemia, no acute bleeding noted monitor his labs Potassium now normal at inc creatinine, nephrology consult pending cont iv hydration Acute Hypoxia, now controlled and mained, O2 NC prn., Resolved History of Kelton syndrome, had a recent flareup that require Medrol Dosepak Continue to monitor patient History of migraines, complaints of headache this morning and requesting his Imitrex from his home meds, restarted Chronic low back pain, has a neuro stimulator in place. Follows up regularly with Dr. Kaye according to record, Toradol is effective for his pain, requesting no narcotics. -Continue with Cymbalta 20 by mouth daily at bedtime, he uses for pain management GERD Continue with Zantac 150 mg by mouth twice a day Bowel regimen, given laxatives yesterday with positive results, still having some loose stools 3 in the past 24 hours. Daniela-Colace held today SCDs for DVT prophylaxis Discussed with patient Discussed with Dr. Odom, seen on his behalf Mayda Odell Oct 10, 2016 14:17
[2016-10-10] MEDS ORDERED: POTASSIUM CHLORIDE 20 MEQ CONTROLLED RELEASE TAB PO ONE (14:30)
[2016-10-10] MEDS ORDERED: POTASSIUM CHLORIDE 25 MEQ EFFERVESCENT TAB PO ONE (14:30)
--- NOTE | 2016-10-10 14:52 | PD.ID.CON ---
History of Present Illness Service ID Consult Requested By Reason for Consult Evaluation and Mment of Intra abdominal abscess, bilateral hydronephrosis. Primary Care Physician Barrie Hernandez MD Diagnoses: History of Present Illness is a 56 y/o CM admitted on 10/07/2016. His PMHx is significant for migraine headache, chronic low back pain with history of SI joint injections status post neurostimulator placed 12/25, dyslipidemia, Kelton's syndrome, prostate cancer stage III adenocarcinoma, ED, patient underwent a robotic prostatectomy August 04, 2016 for prostate carcinoma at [facility] with Dr. Granados. Postoperative care was uncomplicated and saw this physician 10 days postop without complication. On 09/30/2016, patient noticed low back pain with myalgias, chills and generalized weakness. This pain was more right flank/ right buttock. He was prescribed ciprofloxacin 500 mg daily for suspected UTI. UA and CBC were normal. Blood cultures negative. Patient had CT abdomen/pelvis showed large bilateral pelvic fluid collections seromatous likely. There is compression of the distal ureters and bladder resulting in hydronephrosis. His urologist Dr. Granados was contacted from the emergency department. He recommended percutaneous drainage replaced both seroma collections. Patient wished to stay at [place] to have this procedure performed. IR was consulted for percutaneous drainage placement. Patient had CT -guided placement of 8.0 Greek locking pigtail catheters. Right fluid was cloudy and yellow. Left is clear and patricio. Empiric antibiotics were started pending cultures. He received 4.5 mg Versed and 150 mcg fentanyl for this procedure. Postprocedure, patient became quite tremulous tachycardic and hypoxic. Patient was then treated with Zosyn IV and Vanco IV and reports doing better since admission. When seen patient is on a regular floor, sitting in a chair in no cardio resp distress, still has the bilateral drains in place. His Creatinine is increased since admission. ID is consulted for evaluation and Mment of Pelvic abscess on right side (Strep and mixed anaerobes). He is s/p robotic surgery. Review of Systems Constitutional: COMPLAINS OF: Fever, Chills, DENIES: Diaphoretic episodes, Fatigue, Weight gain, Weight loss, Dizziness, Change in appetite, Night Sweats Endocrine: DENIES: Heat/cold intolerance, Polydipsia, Polyuria, Polyphagia Eyes: DENIES: Blurred vision, Diplopia, Eye inflammation, Eye pain, Vision loss , Photosensitivity, Double Vision Ears, nose, mouth, throat: DENIES: Tinnitus, Hearing loss, Vertigo, Nasal discharge, Oral lesions, Throat pain, Hoarseness, Ear Pain, Running Nose, Epistaxis, Sinus Pain, Toothache, Odynophagia Respiratory: DENIES: Apneas, Cough, Snoring, Wheezing, Hemoptysis, Sputum production, Shortness of breath Cardiovascular: DENIES: Chest pain, Palpitations, Syncope, Dyspnea on Exertion , PND, Lower Extremity Edema, Orthopnea, Claudication Gastrointestinal: DENIES: Abdominal pain, Black stools, Bloody stools, Constipation, Diarrhea, Nausea, Vomiting, Difficulty Swallowing, Anorexia Genitourinary: COMPLAINS OF: Sexual dysfunction, DENIES: Urinary frequency, Urinary incontinence, Urgency, Hematuria, Dysuria, Nocturia, Penile Discharge, Testicular Pain, Testicular Swelling Musculoskeletal: DENIES: Joint pain, Muscle aches, Stiffness, Joint Swelling, Back pain, Neck pain Integumentary: DENIES: Abnormal pigmentation, Nail changes, Pruritus, Rash Hematologic/lymphatic: DENIES: Bruising, Lymphadenopathy Immunologic/allergic: DENIES: Eczema, Urticaria Neurologic: DENIES: Abnormal gait, Headache, Localized weakness, Paresthesias, Seizures, Speech Problems, Tremor, Poor Balance Psychiatric: DENIES: Anxiety, Confusion, Mood changes, Depression, Hallucinations, Agitation, Suicidal Ideation, Homicidal Ideation, Delusions Except as stated in HPI: all other systems reviewed are Neg Past Family Social History Allergies: Coded Allergies: Lipitor (Verified Allergy, Severe, Rash, 01/08/16) Zocor (Verified Allergy, Intermediate, Rash, 01/08/16) Sulfa (Verified Allergy, Mild, Rash, 01/08/16) Past Medical History Migraine headache Chronic low back pain history of neurogenic stimulator 12/25 Kelton syndrome Gastroesophageal reflux disease Depression Dyslipidemia Adenocarcinoma stage III prostate cancer Past Surgical History L4/L5 lumbar fusion Orchiplexy Lasik eye surgery Varicocele Prostatectomy with removal seminal vesicles Reported Medications Reported Meds & Active Scripts Active Reported Imitrex (Sumatriptan Succinate) 100 Mg Tab 100 Mg PO ONCE PRN If a satisfactory response has not been obtained at 2 hours, a second dose may be administered Crestor (Rosuvastatin Calcium) 5 Mg Tab 5 Mg PO DAILY Flonase Nasal [place] (Fluticasone Nasal [place]) 50 Mcg/Act [place] 2 Spr EACH NARE DAILY Cymbalta DR (Duloxetine HCl) 20 Mg Capdr 20 Mg PO HS Zantac (Ranitidine HCl) 150 Mg Tab 150 Mg PO BID PRN Prevacid (Lansoprazole) 30 Mg Capdr 30 Mg PO DAILY PRN Cialis (Tadalafil) 5 Mg Tab 5 Mg PO DAILY Do not exceed 1 dose/day. Cipro (Ciprofloxacin HCl) 500 Mg Tab 500 Mg PO BID Tylenol Arthritis (Acetaminophen) 650 Mg Tablet.er 1,300 Mg PO Q8HR PRN Active Ordered Medications Current Medications Medications (Trade) Dose Ordered Sig/Kamryn Route Start Time Stop Time Status Last Admin (NS Flush) 2 ml UNSCH PRN IV FLUSH 10/07/16 17:30 (NS Flush) 2 ml BID IV FLUSH 10/07/16 21:00 10/10/16 08:13 (Tylenol) 650 mg Q4H PRN PO 10/07/16 17:30 10/07/16 20:47 (Zofran Inj) 4 mg Q6H PRN IVP 10/07/16 17:30 10/09/16 05:24 (Narcan Inj) 0.4 mg UNSCH PRN IV 10/07/16 17:30 (Daniela-Colace) 1 tab BID PO 10/07/16 21:00 10/08/16 21:02 (Milk Of Magnesia Liq) 30 ml Q12H PRN PO 10/07/16 17:30 (Senokot) 17.2 mg Q12H PRN PO 10/07/16 17:30 (Dulcolax Supp) 10 mg DAILY PRN RECTAL 10/07/16 17:30 (Lactulose Liq) 30 ml DAILY PRN PO 10/07/16 17:30 (Cymbalta Dr) 20 mg HS PO 10/07/16 21:00 10/09/16 19:31 Patient Own Medication PT OWN MED: (Rosuvastatin (Crestor... DAILY PO 10/08/16 09:00 Hold Patient Own Medication PT OWN MED: (Tadala... DAILY PO 10/08/16 09:00 Hold Fluticasone Propionate 2 spray 2 spray DAILY EACH NARE 10/08/16 09:00 10/10/16 08:12 (NS 1000 ml Inj) 1,000 ml @ 84 mls/hr [id number] IV 10/08/16 12:02 10/10/16 12:20 (Protonix Inj) 40 mg DAILY IV 10/09/16 09:00 10/10/16 08:12 Miscellaneous Information 1 [id number] XX 10/08/16 12:15 10/08/16 13:45 (Chlorhexidine 2% Cloth) 3 pack Taper DAILY@04 TOP 10/09/16 04:00 10/05/17 03:59 10/09/16 00:26 (Chlorhexidine 2% Cloth) 3 pack UNSCH PRN TOP 10/08/16 12:15 Heparin Sodium (Porcine) 5000 units 5,000 units Q12HR SQ 10/09/16 21:00 10/10/16 08:12 (Rocephin Inj/NS Inj) 100 ml @ 200 mls/hr Q24H IV 10/10/16 15:00 10/10/16 16:15 (Flagyl) 500 mg Q8HR PO 10/10/16 22:00 (Ofirmev Inj) 1,000 mg Q8HR PRN IV 10/10/16 16:45 Family History reviewed and NC to current ID problems. Social History Lives in area. Physical Exam Vital Signs Vital Signs Date Time Temp Pulse Resp B/P Pulse Ox O2 Delivery O2 Flow Rate FiO2 10/10/16 12:04 96.4 73 19 105/71 94 10/10/16 08:16 97.2 79 20 104/66 96 10/10/16 04:14 97.4 81 20 125/65 95 10/10/16 00:13 98.9 92 18 113/68 94 10/10/16 00:00 88 10/09/16 21:30 Room Air 10/09/16 21:19 97.6 87 18 108/66 96 10/09/16 19:48 99.2 86 20 107/62 96 10/09/16 19:47 96 Room Air 10/09/16 19:43 96 21 10/09/16 19:15 85 10/09/16 18:00 92 30 105/74 95 10/09/16 17:00 90 23 107/60 98 10/09/16 16:00 87 21 114/74 95 10/09/16 15:00 84 23 114/77 95 Physical Exam GENERAL: This is a well-nourished, well-developed patient, in no apparent distress. SKIN: No rashes, ecchymoses or lesions. Cool and dry. HEAD: Atraumatic. Normocephalic. No temporal or scalp tenderness. EYES: Pupils equal round and reactive. Extraocular motions intact. No scleral icterus. No injection or drainage. ENT: Nose without bleeding, purulent drainage or septal hematoma. Throat without erythema, tonsillar hypertrophy or exudate. Uvula midline. Airway patent. NECK: Trachea midline. Supple, nontender, no meningeal signs. CARDIOVASCULAR: RRR RESPIRATORY: Clear to auscultation. Breath sounds equal bilaterally. No wheezes , rales, or rhonchi. GASTROINTESTINAL: Abdomen soft, non-tender, nondistended. 2 drains on either side of the abdomen. Left one drained 250 cc overnight. Right one brownish discoloration and thick fluid noted with less than 30 cc overnight. MUSCULOSKELETAL: Extremities without clubbing, cyanosis, or edema. No joint tenderness, effusion, or edema noted. No calf tenderness. Negative Homans sign bilaterally. NEUROLOGICAL: Awake and alert. Grossly non focal Psych: cooperative IV line sites with no e/o infection. Laboratory Laboratory Tests Test 10/10/16 08:35 White Blood Count 11.2 Red Blood Count 3.90 Hemoglobin 10.7 Hematocrit 33.1 Mean Corpuscular Volume 84.9 Mean Corpuscular Hemoglobin 27.4 Mean Corpuscular Hemoglobin 32.3 Concent Red Cell Distribution Width 13.3 Platelet Count 221 Mean Platelet Volume 7.6 Sodium Level 141 Potassium Level 3.4 Chloride Level 111 Carbon Dioxide Level 22.9 Anion Gap 7 Blood Urea Nitrogen 15 Creatinine 1.91 Estimat Glomerular Filtration 36 Rate Random Glucose 92 Calcium Level 8.8 Date/Time Procedure Status Source Growth 10/08/16 13:57 Aerobic Blood Culture - Preliminary Resulted Blood Peripheral NO GROWTH IN 2 DAYS 10/08/16 13:57 Anaerobic Blood Culture - Preliminary Resulted Blood Peripheral NO GROWTH IN 2 DAYS 10/08/16 09:48 Gram Stain - Final Resulted Abscess Abdomen 10/08/16 09:48 Wound Culture - Preliminary Resulted Abscess Abdomen NO GROWTH IN 48 HOURS. 10/08/16 09:48 Fungal Smear - Final Resulted Fluid Other NO FUNGAL ELEMENTS SEEN. 10/08/16 09:48 Fungal Culture Resulted Fluid Other Pending 10/08/16 09:48 Cancelled Fluid Other 10/07/16 14:40 Influenza Types A,B Antigen (BÁRBARA) - Final Complete Nasal Aspirate NEGATIVE FOR FLU A AND B ANTIGEN.... Result Diagram: 10/10/16 0835 10/10/16 0835 Imaging Last Impressions Renal Ultrasound 10/10/16 0000 Signed Impressions: Service Date/Time: Monday, October 10, 2016 16:49 - CONCLUSION: 1. No hydronephrosis is seen. 2. Left renal peripherally calcified mass better characterized on recent CT examination which limits evaluation of the mid and inferior left kidney. This appearance on the CT examination is most suggestive of a subcapsular hematoma or cyst that has peripherally calcified. Raymond Barboza MD Chest X-Ray 10/08/16 0000 Signed Impressions: Service Date/Time: Saturday, October 08, 2016 12:26 - CONCLUSION: No acute disease. Josef Rich MD Abscess Drainage CT 10/08/16 0000 Signed Impressions: Service Date/Time: Saturday, October 08, 2016 09:09 - CONCLUSION: Uncomplicated CT guided drainage with placement of 8 Greek locking pigtail. Josef Rich MD Abdomen/Pelvis CT 10/07/16 1408 Signed Impressions: Service Date/Time: September 15:43 - CONCLUSION: 1. Large bilateral pelvic fluid collections which may be postsurgical seromas. There is significant compression of the distal ureters and bladder resulting in mild to moderate bilateral hydronephrosis. 2. Status post prostatectomy with removal of seminal vesicles. 3. Large calcified cystic lesion in the lower pole the left kidney. If prior imaging can be obtained comparison is recommended. 4. Lower lumbar fusion. Wolfgang Whitfield MD Assessment and Plan Assessment and Plan Pelvic abscess right (fluid collection is an abscess grew Strep and mixed anaerobes). Kelton's syndrome, Prostate cancer stage III adenocarcinoma, s/p robotic prostatectomy August 04, 2016 for prostate carcinoma at [facility] with Dr. Granados Erectile dysfunction Acute renal failure: drug induced (vanco IV, Zosyn), obstructive. Recs: DC Zosyn IV DC Vanco IV Start Ceftriaxone IV Start Flagyl oral. No PICC needed. May transition to oral on discharge. Consult Urology: jameson Hinds Consult Nephrology Follow cultures Follow clinically. Mallorie Lind MD Oct 10, 2016 14:52
[2016-10-10] MEDS: cefTRIAXone INJ 2,000 MG in SODIUM CHLORIDE 0.9% INJ 100 ML IV SCH (16:15)
--- NOTE | 2016-10-10 18:35 | RADRPT ---
EXAM DATE/TIME: 10/10/2016 16:49 [facility] COMPARISON: CT ABDOMEN & PELVIS W CONTRAST, October 07, 2016, 15:43. EXTERNAL COMPARISON : [facility], CT ABDOMEN & PELVIS W CONTRAST August 02, 2016 INDICATIONS : Increased BUN. MEDICAL HISTORY : Hypercholesterolemia. Gastroesophageal reflux disease. Carcinoma, prostate. Migraines. Calcified cyst of left kidney. Arthritis. Lumbar spine problems. SURGICAL HISTORY : Prostatectomy. Lasik eye surgery. Orchieopexy. Vericocele. Left knee surgery arthroscopy. ENCOUNTER: Initial ACUITY: > 1 year PAIN SCORE: 6/10 LOCATION: Bilateral flank MEASUREMENTS: RIGHT KIDNEY: 11.0 x 6.1 x 5.7 cm LEFT KIDNEY: 13.9 x 6.9 x 7.7 cm FINDINGS: RIGHT KIDNEY: Renal cortex is normal in thickness and echotexture. No hydronephrosis, stone, or mass. LEFT KIDNEY: There is a hypoechoic mass at the left lateral mid kidney. This limits evaluation of the deeper struc tures. On a recent CT examination, there is a subcapsular mass with dense peripheral calcification. H ydronephrosis is not seen. BLADDER: Within normal limits given the degree of distension. CONCLUSION: 1. No hydronephrosis is seen. 2. Left renal peripherally calcified mass better characterized on recent CT examination which limits evaluation of the mid and inferior left kidney. This appearance on the CT examination is most suggest duke of a subcapsular hematoma or cyst that has peripherally calcified. Raymond Barboza MD on October 10, 2016 at 18:28 Board Certified Radiologist. This report was verified electronically.
[2016-10-10] MEDS: DULoxetine HCl DR 20 MG CAP PO SCH (22:14)
[2016-10-10] MEDS: metroNIDAZOLE 500 MG TAB PO SCH (22:14)
[2016-10-10] MEDS: ACETAMINOPHEN 1000 MG/100 ML VIAL IV PRN (22:14)
[2016-10-11] VITALS: BP 117/68; PULSE 71; RESP 20; TEMP 97.6; O2SAT 96
[2016-10-11 00:19] LABS: BLOOD, URINE NEG (NEG); GLUCOSE,URINE NEG (NEG); KETONE, URINE NEG (NEG); NITRITE,URINE NEG (NEG); PH, URINE 5.5 (5.0-8.5); URINE COLOR YELLOW (YELLW/STRAW)
[2016-10-11 04:00] VITALS: BP_SYST 102; PULSE 67; RESP 20; TEMP 97; O2SAT 96
[2016-10-11] MEDS: ACETAMINOPHEN 1000 MG/100 ML VIAL IV PRN ×3 (06:10→22:10)
[2016-10-11] MEDS: metroNIDAZOLE 500 MG TAB PO SCH ×3 (06:10→22:10)
[2016-10-11 08:00] VITALS: BP 131/80; PULSE 65; RESP 20; TEMP 96.9; O2SAT 96
--- NOTE | 2016-10-11 08:18 | MB ---
cc: SILVESTRE YOST MD DATE OF CONSULTATION: 10/10/2016 REASON FOR CONSULTATION Acute renal failure management. 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 The patient has a history of chronic low back pain with a neurostimulator as well as Keltno's syndrome, GERD and migraines. The patient underwent a robotic prostatectomy in July for stage III prostate adenocarcinoma at [facility] in [place]. Apparently he did well postoperatively, however, over the last several weeks he had complained of some fevers, chills and myalgias. The patient saw his primary care first and had a fever up to 102. He presented here to the emergency room and a CT scan revealed bilateral pelvic fluid collections significant for postsurgical seromas. Communication was made with the urologist at [facility] where this was performed and the decision was made to place bilateral nephrostomy tubes. The patient had right and left nephrostomy tubes placed successfully here with interventional radiology and he is draining adequately from these tubes. He is also urinating and voiding as well. The patient over this hospital course was initially given vancomycin with his fevers. This was stopped today and was seen with Infectious Disease. In addition, he received some Toradol for pain control. Regarding his renal function his baseline creatinine is 0.9. The creatinine was actually pretty stable until yesterday when the creatinine was 0.9 and repeat creatinine today was 1.9. Over the last several days the patient has also had diarrhea which he reports as somewhat improving today. He reported the diarrhea started after some of the antibiotics. The patient is otherwise resting comfortably at this time. He reports he is voiding more throughout the course of today and is feeling somewhat better. He is receiving IV fluids. Nephrology was consulted for further evaluation. PAST MEDICAL HISTORY 1. GERD. 2. Migraines. 3. Chronic back pain with SI joint problems and neurostimulator placed in December 2015. 4. Kelton's syndrome. 5. Dyslipidemia. 6. Prostatitis. 7. Prostate cancer, stage III adenocarcinoma, with robotic prostatectomy in July 2016. PAST SURGICAL HISTORY 1. Neurostimulator placement. 2. L4-L5 fusion. 3. Orchiopexy. 4. Varicocele repair. 5. LASIK surgery. MEDICATIONS Medications at home included: 1. Imitrex. 2. Crestor. 3. Flonase. 4. Cymbalta. 5. Zantac. 6. Prevacid. 7. Cialis. 8. Cipro. 9. Tylenol. ALLERGIES 1. LIPITOR. 2. ZOCOR. 3. SULFA. FAMILY HISTORY Noncontributory other than a history of diabetes. SOCIAL HISTORY The patient is . 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 No alcohol, tobacco or drug use. PHYSICAL EXAMINATION VITAL SIGNS: At the time of evaluation temperature is 96.8, pulse 71, respiratory rate 19, blood pressure 103/66, pulse ox 97% on room air. GENERAL: Awake, alert, oriented, in no apparent distress. HEENT/NECK: Neck soft and supple. No lymphadenopathy. CARDIAC: Regular rate and rhythm. No murmurs, rubs, gallops. PULMONARY: Lungs clear to auscultation. Decreased breath sounds at the bases. ABDOMEN: Soft, nontender, nondistended. EXTREMITIES: Trace edema. LABORATORY FINDINGS Sodium 141, potassium 3.4, chloride 111, bicarb 22.9, BUN 15, creatinine 1.91, glucose 92, calcium 8.8, AST 38, ALT 63, alk phos 190, albumin 2.0. White count 11.2, hemoglobin 10.7, hematocrit 33.1, platelet count 221. Blood cultures initially showed Bacteroides on 10/07/2016. On 10/08/2016 blood cultures were negative. ASSESSMENT AND PLAN 1. Acute kidney injury. The patient had a creatinine of 0.9 yesterday which increased to a level of 1.9 today. He has had apparent obstructive acute kidney injury secondary to seromas post robotic prostatectomy. He actually has bilateral nephrostomies which seem to be draining well at this time. He is voiding as well. His creatinine increased to a level of 1.9 today. I suspect the patient has acute kidney injury for a variety of reasons including recent Toradol administration for pain control as well as vancomycin administration for sepsis. In addition, his blood pressure was slightly low with systolic blood pressure in the 90s to 100s. The patient was started on IV fluids and agree with IV fluids as tolerated at this time. The patient has notably had some significant diarrhea which started several days ago. He reports his diarrhea is starting to improve now; however, this diarrhea may have contributed to volume depletion contributing to the acute renal failure. Will continue with IV fluids at this point. He reports he is feeling better and voiding more today. There may be some nonoliguric ATN playing a role here, however, I suspect much of this may be volume depletion secondary to gastroenteritis. Continue with IV fluids at this point. His volume status was otherwise stable and the patient is tolerating p.o. intake. 2. Sepsis. The patient had Bacteroides in the blood cultures. Repeat blood cultures were negative. He is being followed with Infectious Disease and ceftriaxone was started. He has also been started on p.o. Flagyl with ongoing diarrhea. Continue follow-up with Infectious Disease. Renal dose all medications. The patient had received vancomycin previously which is on hold now. Continue to monitor closely. 3. Kelton's syndrome. The patient is stable. 4. Chronic low back pain. The patient has a neurostimulator. Avoid any NSAIDs. The patient had received Toradol earlier which has been stopped. This may have contributed to some of the renal injury. Continue to closely monitor. MD KAUSHIK RussellP/BT /6:30 PM /7:58 AM MTDD
[2016-10-11] MEDS: DOCUSATE SODIUM 50 MG/SENNA 8.6 MG TAB PO SCH ×3 (08:30→20:28)
[2016-10-11] MEDS: SODIUM CHLORIDE 0.9% FLUSH 10 ML FLUSH IV FLUSH SCH ×2 (08:30→20:21)
[2016-10-11] MEDS: FLUTICASONE PROPIONATE 50 MCG/ACT 16 GM NASAL SPRAY EACH NARE SCH (08:30)
[2016-10-11] MEDS: HEPARIN SODIUM - SQ 10,000 UNITS/ML VIAL SQ SCH ×3 (08:30→20:29)
[2016-10-11] MEDS: PANTOPRAZOLE SODIUM 40 MG VIAL IV SCH (08:30)
[2016-10-11] MEDS: SODIUM CHLOR 0.9% 1000 ML INJ 1,000 ML IV SCH (08:31)
[2016-10-11 08:41] LABS: HEMATOCRIT 33.5 % (39.0-51.0); MEAN CELL VOLUME 84.9 FL (80.0-100.0); MEAN CORPUSCULAR HEMOGLOBIN 27.7 PG (27.0-34.0); MEAN CORPUSCULAR HGB CONC 32.7 % (32.0-36.0); PLATELET COUNT 286 TH/MM3 (150-450); RED BLOOD COUNT 3.94 MIL/MM3 (4.50-5.90); RED CELL DISTRIBUTION WIDTH 13.1 % (11.6-17.2); REVIEW FLAG FINAL; WHITE BLOOD COUNT 8.4 TH/MM3 (4.0-11.0)
[2016-10-11 09:48] LABS: ALT (GPT) 36 U/L (12-78); ANION GAP 10 MEQ/L (5-15); AST (GOT) 19 U/L (15-37); BICARBONATE 19.8 MEQ/L (21.0-32.0); BLOOD UREA NITROGEN 19 MG/DL (7-18); CHLORIDE 110 MEQ/L (98-107); GLOMERULAR FILTRATION RATE 38 ML/MIN (>89); POTASSIUM 3.7 MEQ/L (3.5-5.1); SODIUM (NA) 140 MEQ/L (136-145)
[2016-10-11 09:51] LABS: ALKALINE PHOSPHATASE 175 U/L (45-117); TOTAL BILIRUBIN ADULT 0.4 MG/DL (0.2-1.0)
[2016-10-11] MEDS ORDERED: PHARMACY ORDERED LAB ONE (11:45)
[2016-10-11 12:00] VITALS: BP 123/78; PULSE 70; RESP 20; TEMP 97.1; O2SAT 97
--- NOTE | 2016-10-11 13:38 | MB ---
cc: AUDRA GRIFFITHS MD DATE OF CONSULTATION: October 11, 2016 REASON FOR CONSULTATION 1. Bilateral hydronephrosis. 2. Acute kidney injury. 3. History of prostate cancer status post radical retropubic robotic prostatectomy August 04, 2016. HISTORY OF PRESENT ILLNESS The patient is a very pleasant 56-year-old male with history of T3, [place] 3 + 4 = 7 prostate cancer, who underwent a robotic prostatectomy by Dr. Granados in [place] on August 04, 2016, was admitted earlier last week when he started having fevers, chills and bilateral flank pain, more so on the right flank. He initially saw his primary care physician who prescribed Cipro for suspected UTI. However, it came back negative. He also had blood cultures last week which came back negative. However, despite these therapies he continued to feel poorly over the weekend and his fever spiked to 102.4. He was then sent to the ER for further evaluation. He had CT abdomen and pelvis done which showed large bilateral pelvic fluid questions consistent with postsurgical seromas that were causing intrinsic compression on the distal ureters resulting in bilateral hydronephrosis or renal failure. His urologist who performed the surgery was contacted from the emergency room, who recommended drains in both of the fluid collections. He stated the patient could have been transferred to [place] or done at [place] and the patient preferred to stay at [place] for the procedure. He subsequently had drains placed in both of the seromas and became septic shortly thereafter. However, the last couple of days he has slowly felt better and his right flank pain has significantly improved. His creatinine had come down to 0.91 from 1.2 prior admission. However, yesterday on repeat labs his creatinine spiked to 1.91, however, per the patient he does not like taking narcotics and so he has been taking Toradol for pain. Today he feels significantly better. His appetite is much improved. He has chronic back pain but denies any flank pain, fevers, chills, nausea or vomiting currently. He is up ambulating around. He states he was recovering well from his surgery back in July. He denied any urinary incontinence following the surgery. He denies any history of kidney stones or recent urinary tract infections. REVIEW OF SYSTEMS See HPI, otherwise all systems reviewed otherwise were negative. PAST MEDICAL HISTORY Significant for: 1. T3, [place] 3 + 4 = 7 prostate cancer. 2. Kelton's syndrome. 3. Hyperlipidemia. 4. Migraines. 5. Gastroesophageal reflux disease. 6. Chronic back pain. PAST SURGICAL HISTORY 1. Robotic prostatectomy. 2. L4-5 fusion. 3. Neuro stimulator placement. 4. Variceal repair. 5. Lasix surgery. 6. Orchiopexy. MEDICATIONS Home medications include: 1. Prevacid 30 mg p.o. daily p.r.n. 2. Cialis 5 mg p.o. daily. 3. Crestor 5 mg p.o. daily. 4. Imitrex 100 mg p.o. p.r.n. for migraines. 5. Cymbalta 20 mg p.o. q.h.s. 6. Flonase. ALLERGIES LIPITOR, ZOCOR, SULFA. FAMILY HISTORY Negative for urolithiasis. Father does have prostate cancer. SOCIAL HISTORY The patient is , has a daughter. He is a retired pharmacist. Denies alcohol, tobacco or substance abuse. PHYSICAL EXAMINATION VITAL SIGNS: Temperature 96.9, pulse 65, respiratory rate 20, BP 131/80, sating 96% on room air. GENERAL: He is alert and oriented x3. No apparent distress. Pleasant and cooperative gentleman, appears his stated age. HEAD: Normocephalic, atraumatic. EYES: No scleral icterus. Extraocular muscles intact. NECK: Neck is supple. Trachea is midline. No JVD. SKIN: No ulcers or rashes. Mucous membranes pink and dry. LUNGS: Clear to auscultation bilaterally. No wheezes, rales or rhonchi. HEART: Regular rate and rhythm. No murmurs, gallops, rubs. ABDOMEN: Soft, nontender, nondistended. Positive bowel sounds. His incisions are healing well. No hernias palpated. GENITOURINARY: Penis is circumcised. Testes descended bilaterally, normal in size and consistency. His bilateral ___ drains are draining serous fluid. EXTREMITIES: Nontender. No clubbing, cyanosis, edema. NEUROLOGIC: Cranial nerves II-XII intact. Strength is 5/5 in all four extremities. PSYCHE: Normal affect. LABORATORY DATA Labs show a white count of 8.4, hemoglobin 10.9, hematocrit 33.5, platelet count 286. Sodium 140, potassium 3.7, chloride 110, bicarb 19.8, BUN 19, creatinine 1.86, glucose 80. IMAGING STUDIES Renal ultrasound done on 10/10/2016, images are reviewed and agree with radiologist report, no evidence of any hydronephrosis or obstructive uropathy. He does have a calcified cystic growth in his left kidney, likely hemorrhagic cyst. ASSESSMENT The patient is a 56-year-old male with history of T3, [place] VII prostate cancer status post robotic prostatectomy, who was admitted with bilateral hydronephrosis secondary to intrinsic compression from postsurgical seromas, status post percutaneous drainage with acute kidney injury. PLAN 1. His creatinine has slightly improved today. His renal ultrasound was negative for any obstruction, likely intrinsic, possibly related to Toradol use. Would limit his NSAID use. 2. Would continue the drainage bags to gravity drainage. Once he is clinically improved I would recommend discharge with the drainage bags and can be managed by Dr. Granados at [place]. However, once the drainage does decrease, would recommend getting a repeat CAT scan prior to discharge to ensure resolution of the postoperative seromas. Thank you for this consult. Will follow along with you. MD SABA Hartley/CECILIO /12:34 PM /1:07 PM
[2016-10-11] MEDS: cefTRIAXone INJ 2,000 MG in SODIUM CHLORIDE 0.9% INJ 100 ML IV SCH (14:13)
--- NOTE | 2016-10-11 15:36 | HHI.PR ---
Subjective Interval History Alert, oriented, pain is much improved, continues to have drainage from both nephrostomy acute, right more than left, no fever, no chills, eating without problems Review of Systems Constitutional Constitutional: Chills (resolved now), Fatigue, Weakness Constitutional Remarks 10 systems reviewed otherwise negative GI/Abdomen GI/Abdominal Exam: Nausea (occ. with decreased appetite), Constipation ( responded to medication has had 3 loose BMs this morning) Genitourinary Genitourinary: Dysuria (voiding without difficulty now) Musculoskeletal MS: Weakness Integumentary Skin: Wounds Neurologic Neurologic: Headache (history of migraines) Psychiatric Psychiatric: Normal Mood Vitals/Results Intake & Output 10/10/16 10/10/16 10/11/16 15:00 23:00 07:00 Intake Total 1544 ml 640 ml Output Total 235 ml 200 ml 275 ml Balance -235 ml 1344 ml 365 ml IV Total 1544 ml 640 ml Drainage Total 235 ml 200 ml 275 ml # Voids 2 3 2 Vital Signs Vital Signs Date Time Temp Pulse Resp B/P Pulse Ox O2 Delivery O2 Flow Rate FiO2 10/11/16 12:00 97.1 70 20 123/78 97 10/11/16 08:00 Room Air 10/11/16 08:00 96.9 65 20 131/80 96 10/11/16 04:00 Room Air 10/11/16 04:00 97.0 67 20 102/ 96 10/11/16 00:00 Room Air 10/11/16 00:00 97.6 71 20 117/68 96 10/10/16 20:59 96.9 75 20 118/72 98 10/10/16 20:00 Room Air 10/10/16 16:22 96.8 71 19 103/66 97 CBC/BMP: 10/11/16 0746 10/11/16 0746 Lab Results Laboratory Tests Test 10/10/16 10/11/16 23:25 07:46 Urine Color YELLOW Urine Turbidity CLEAR Urine pH 5.5 Urine Specific [place] 1.016 Urine Protein 30 mg/dL Urine Glucose (UA) NEG mg/dL Urine Ketones NEG mg/dL Urine Occult Blood NEG Urine Nitrite NEG Urine Bilirubin NEG Urine Urobilinogen LESS THAN 2.0 MG/DL Urine Leukocyte Esterase NEG Urine Eosinophils NONE SEEN /HPF White Blood Count 8.4 TH/MM3 Red Blood Count 3.94 MIL/MM3 Hemoglobin 10.9 GM/DL Hematocrit 33.5 % Mean Corpuscular Volume 84.9 FL Mean Corpuscular Hemoglobin 27.7 PG Mean Corpuscular Hemoglobin 32.7 % Concent Red Cell Distribution Width 13.1 % Platelet Count 286 TH/MM3 Mean Platelet Volume 7.6 FL Sodium Level 140 MEQ/L Potassium Level 3.7 MEQ/L Chloride Level 110 MEQ/L Carbon Dioxide Level 19.8 MEQ/L Anion Gap 10 MEQ/L Blood Urea Nitrogen 19 MG/DL Creatinine 1.86 MG/DL Estimat Glomerular Filtration 38 ML/MIN Rate Random Glucose 80 MG/DL Calcium Level 8.6 MG/DL Total Bilirubin 0.4 MG/DL Aspartate Amino Transf 19 U/L (AST/SGOT) Alanine Aminotransferase 36 U/L (ALT/SGPT) Alkaline Phosphatase 175 U/L Total Protein 6.3 GM/DL Albumin 2.1 GM/DL Physical Exam General General Appearance: Well Developed, Well Nourished, Pale Eyes Eye Exam: Pupils Equal, Pupils Reactive Ears & Nose Ears & Nose Exam: Nasal Mucosa [place] (pale) Throat Throat Exam: Oral Mucosa [place] & Moist (pale) Neck Neck Exam: Neck Supple Pulmonary Resp Exam: Clear Bilaterally Cardiology CV Exam: Regular, Normal Sinus Rhythm Gastrointestinal/Abdomen GI Exam: Bowel Sounds Hypoactive Musculoskeletal MS Exam: Joints Intact Integumentary Skin Exam: Warm, Dry, Intact Extremeties Extremities Exam: No Edema Neurologic Neuro Exam: Alert, Awake, Oriented, Speech Clear, Moving All Extremities VTE Prophylaxis VTE Prophylaxis Meds: Heparin Assessment/Plan Assessment/Plan Assessment Bilateral hydronephrosis Status post bilateral nephrostomy tube insertion on 10/08/16 Episode of chills immediately after nephrostomy tube insertion Blood cultures so far negative Acute kidney injury upon arrival, likely obstructive uropathy This is improving history of prostate cancer, status post surgery Management Pain control Continue nephrostomy drainage Continue antibiotics Nephrology following Urology following Follow renal function Discussed with patient Discussed with nurse 35 minutes Marcia Rankin MD Oct 11, 2016 15:35
[2016-10-11 16:00] VITALS: BP 131/84; PULSE 70; RESP 20; TEMP 98.2; O2SAT 97
--- NOTE | 2016-10-11 17:17 | HHI.IDPN ---
Subjective Subjective Remarks is a 56 y/o CM admitted on 10/07/2016. His PMHx is significant for migraine headache, chronic low back pain with history of SI joint injections status post neurostimulator placed 12/25, dyslipidemia, Kelton's syndrome, prostate cancer stage III adenocarcinoma, ED, patient underwent a robotic prostatectomy August 04, 2016 for prostate carcinoma at [facility] with Dr. Granados. Postoperative care was uncomplicated and saw this physician 10 days postop without complication. On 09/30/2016, patient noticed low back pain with myalgias, chills and generalized weakness. This pain was more right flank/ right buttock. He was prescribed ciprofloxacin 500 mg daily for suspected UTI. UA and CBC were normal. Blood cultures negative. Patient had CT abdomen/pelvis showed large bilateral pelvic fluid collections seromatous likely. There is compression of the distal ureters and bladder resulting in hydronephrosis. His urologist Dr. Granados was contacted from the emergency department. He recommended percutaneous drainage replaced both seroma collections. Patient wished to stay at [facility] to have this procedure performed. IR was consulted for percutaneous drainage placement. Patient had CT -guided placement of 8.0 Mongolian locking pigtail catheters. Right fluid was cloudy and yellow. Left is clear and patricio. Empiric antibiotics were started pending cultures. He received 4.5 mg Versed and 150 mcg fentanyl for this procedure. Postprocedure, patient became quite tremulous tachycardic and hypoxic. Patient was then treated with Zosyn IV and Vanco IV and reports doing better since admission. When seen patient is on a regular floor, sitting in a chair in no cardio resp distress, still has the bilateral drains in place. His Creatinine is increased since admission. ID is consulted for evaluation and Mment of Pelvic abscess on right side (Strep and mixed anaerobes). He is s/p robotic surgery. Overnight events reviewed. No fever No rash no diarrhea Antibiotics Ceftriaxone IV Flagyl oral Lines Line sites with no evidence of infection. Past Medical History Reviewed. Allergies: Coded Allergies: Lipitor (Verified Allergy, Severe, Rash, 01/08/16) Zocor (Verified Allergy, Intermediate, Rash, 01/08/16) Sulfa (Verified Allergy, Mild, Rash, 01/08/16) Objective . Vital Signs Date Time Temp Pulse Resp B/P Pulse Ox O2 Delivery O2 Flow Rate FiO2 7/3/17 16:00 98.2 70 20 131/84 97 10/11/16 12:00 97.1 70 20 123/78 97 10/11/16 08:00 Room Air 10/11/16 08:00 96.9 65 20 131/80 96 10/11/16 04:00 Room Air 10/11/16 04:00 97.0 67 20 102/ 96 10/11/16 00:00 Room Air 10/11/16 00:00 97.6 71 20 117/68 96 10/10/16 20:59 96.9 75 20 118/72 98 10/10/16 20:00 Room Air 10/10/16 10/10/16 10/11/16 15:00 23:00 07:00 Intake Total 1544 ml 640 ml Output Total 235 ml 200 ml 275 ml Balance -235 ml 1344 ml 365 ml IV Total 1544 ml 640 ml Drainage Total 235 ml 200 ml 275 ml # Voids 2 3 2 . Laboratory Tests Test 10/10/16 10/11/16 08:35 07:46 White Blood Count 11.2 TH/MM3 8.4 TH/MM3 Red Blood Count 3.90 MIL/MM3 3.94 MIL/MM3 Hemoglobin 10.7 GM/DL 10.9 GM/DL Hematocrit 33.1 % 33.5 % Mean Corpuscular Volume 84.9 FL 84.9 FL Mean Corpuscular Hemoglobin 27.4 PG 27.7 PG Mean Corpuscular Hemoglobin 32.3 % 32.7 % Concent Red Cell Distribution Width 13.3 % 13.1 % Platelet Count 221 TH/MM3 286 TH/MM3 Mean Platelet Volume 7.6 FL 7.6 FL Laboratory Tests Test 10/10/16 10/11/16 08:35 07:46 Sodium Level 141 MEQ/L 140 MEQ/L Potassium Level 3.4 MEQ/L 3.7 MEQ/L Chloride Level 111 MEQ/L 110 MEQ/L Carbon Dioxide Level 22.9 MEQ/L 19.8 MEQ/L Anion Gap 7 MEQ/L 10 MEQ/L Blood Urea Nitrogen 15 MG/DL 19 MG/DL Creatinine 1.91 MG/DL 1.86 MG/DL Estimat Glomerular Filtration 36 ML/MIN 38 ML/MIN Rate Random Glucose 92 MG/DL 80 MG/DL Calcium Level 8.8 MG/DL 8.6 MG/DL Total Bilirubin 0.4 MG/DL Aspartate Amino Transf 19 U/L (AST/SGOT) Alanine Aminotransferase 36 U/L (ALT/SGPT) Alkaline Phosphatase 175 U/L Total Protein 6.3 GM/DL Albumin 2.1 GM/DL Imaging Last Impressions Renal Ultrasound 10/10/16 0000 Signed Impressions: Service Date/Time: Monday, October 10, 2016 16:49 - CONCLUSION: 1. No hydronephrosis is seen. 2. Left renal peripherally calcified mass better characterized on recent CT examination which limits evaluation of the mid and inferior left kidney. This appearance on the CT examination is most suggestive of a subcapsular hematoma or cyst that has peripherally calcified. Raymond Barboza MD Chest X-Ray 10/08/16 0000 Signed Impressions: Service Date/Time: Saturday, October 08, 2016 12:26 - CONCLUSION: No acute disease. Josef Rihc MD Abscess Drainage CT 10/08/16 0000 Signed Impressions: Service Date/Time: Saturday, October 08, 2016 09:09 - CONCLUSION: Uncomplicated CT guided drainage with placement of 8 Mongolian locking pigtail. Josef Rich MD Abdomen/Pelvis CT 10/07/16 1408 Signed Impressions: Service Date/Time: September 15:43 - CONCLUSION: 1. Large bilateral pelvic fluid collections which may be postsurgical seromas. There is significant compression of the distal ureters and bladder resulting in mild to moderate bilateral hydronephrosis. 2. Status post prostatectomy with removal of seminal vesicles. 3. Large calcified cystic lesion in the lower pole the left kidney. If prior imaging can be obtained comparison is recommended. 4. Lower lumbar fusion. Wolfgang Whitfield MD Physical Exam GENERAL: This is a well-nourished, well-developed patient, in no apparent distress. SKIN: No rashes, ecchymoses or lesions. Cool and dry. HEAD: Atraumatic. Normocephalic. No temporal or scalp tenderness. EYES: Pupils equal round and reactive. Extraocular motions intact. No scleral icterus. No injection or drainage. ENT: Nose without bleeding, purulent drainage or septal hematoma. Throat without erythema, tonsillar hypertrophy or exudate. Uvula midline. Airway patent. NECK: Trachea midline. Supple, nontender, no meningeal signs. CARDIOVASCULAR: RRR RESPIRATORY: Clear to auscultation. Breath sounds equal bilaterally. No wheezes , rales, or rhonchi. GASTROINTESTINAL: Abdomen soft, non-tender, nondistended. 2 drains on either side of the abdomen. Left one drained 250 cc overnight. Right one brownish discoloration and thick fluid noted with less than 30 cc overnight. MUSCULOSKELETAL: Extremities without clubbing, cyanosis, or edema. No joint tenderness, effusion, or edema noted. No calf tenderness. Negative Homans sign bilaterally. NEUROLOGICAL: Awake and alert. Grossly non focal Psych: cooperative IV line sites with no e/o infection. Assessment & Plan Remarks Pelvic abscess right (fluid collection is an abscess grew Strep and mixed anaerobes). Kelton's syndrome, Prostate cancer stage III adenocarcinoma, s/p robotic prostatectomy August 04, 2016 for prostate carcinoma at [facility] with Dr. Granados Erectile dysfunction Acute renal failure: drug induced (vanco IV, Zosyn), obstructive. Recs: Discontinue ceftriaxone IV Start Levaquin oral Start Flagyl oral. Observe progress on oral regimen overnight. If continues to do well likely discharge home in a.m. Follow cultures Follow clinically. Follow up with Dr.Reba Martinez in [address]Reba Martinez or [facility] Physician Follow up appt: Patient to schedule follow up appt with Dr.Reba Martinez within ..... weeks post discharge. Follow up with PCP Follow up with other MDs as planned. Counseling: Counseled about medication side effects Counseled about PICC line care and hand hygiene. Mallorie Lind MD Oct 11, 2016 17:17
--- NOTE | 2016-10-11 19:05 | HHI.NPPN ---
Subjective History of Present Illness 56 year old with Hx of ARF hx of nephrostomy Objective Data Data 10/10/16 10/11/16 19:00 07:00 Intake Total 2184 ml Output Total 235 ml 475 ml Balance -235 ml 1709 ml IV Total 2184 ml Drainage Total 235 ml 475 ml # Voids 5 2 Vital Signs Date Time Temp Pulse Resp B/P Pulse Ox O2 Delivery O2 Flow Rate FiO2 10/11/16 16:00 98.2 70 20 131/84 97 10/11/16 12:00 97.1 70 20 123/78 97 10/11/16 08:00 Room Air 10/11/16 08:00 96.9 65 20 131/80 96 10/11/16 04:00 Room Air 10/11/16 04:00 97.0 67 20 102/ 96 10/11/16 00:00 Room Air 10/11/16 00:00 97.6 71 20 117/68 96 10/10/16 20:59 96.9 75 20 118/72 98 10/10/16 20:00 Room Air -: 10/11/16 0746 10/11/16 0746 Physical Exam General Appearance: Well Developed, Well Nourished, Pale Eyes Eye Exam: Pupils Equal, Pupils Reactive Ears & Nose Ears & Nose Exam: Nasal Mucosa [place] (pale) Throat Throat Exam: Oral Mucosa [place] & Moist (pale) Neck Neck Exam: Neck Supple Pulmonary Resp Exam: Clear Bilaterally Cardiology CV Exam: Regular, Normal Sinus Rhythm Gastrointestinal/Abdomen GI Exam: Bowel Sounds Hypoactive Musculoskeletal MS Exam: Joints Intact Integumentary Skin Exam: Warm, Dry, Intact Extremeties Extremities Exam: No Edema Neurologic Neuro Exam: Alert, Awake, Oriented, Speech Clear, Moving All Extremities Assessment/Plan Problem List: (1) Acute renal failure Plan: with CT IV contrast, IV vanco possibly contributing resolving Cr 1.8 no hydronephrosis s/p nephrostomies Avoid dye studies, gadolinium nephrology to follow as needed (2) Kelton's syndrome Problem Qualifiers (1) Kelton's syndrome: Qualified Code: M02.30 - Kelton's disease, Kelton's disease of unspecified site Theresa Rivas MD Oct 11, 2016 19:05
[2016-10-11] MEDS ORDERED: LEVA500T20 PO (19:37)
[2016-10-11] MEDS ORDERED: METR-1 PO (19:38)
[2016-10-11 20:00] VITALS: BP 126/85; PULSE 63; PULSE 65; RESP 20; TEMP 98.6; O2SAT 98
[2016-10-11] MEDS: SODIUM BICARBONATE 8.4% INJ 50 MEQ in DEXTROSE 5% IN WATE 1000ML INJ 1,000 ML IV SCH ×2 (20:20)
[2016-10-11] MEDS: LEVOFLOXACIN 500 MG TAB PO SCH (20:21)
[2016-10-11] MEDS: DULoxetine HCl DR 20 MG CAP PO SCH (20:21)
[2016-10-12] VITALS (8 sets, daily range): BP systolic 122–150; BP diastolic 71–87; PULSE 59–71; RESP 18–20; TEMP 96.4–99.1; O2SAT 94–97
[2016-10-12] MEDS: ONDANSETRON HCL 4 MG/2 ML VIAL IVP PRN ×3 (02:33→20:17)
[2016-10-12] MEDS: ACETAMINOPHEN 1000 MG/100 ML VIAL IV PRN (02:38)
[2016-10-12] MEDS: CHLORHEXIDINE GLUCONATE 2 % 1 PACK (2 CLOTHS) TOP SCH (04:36)
[2016-10-12] MEDS: SODIUM BICARBONATE 8.4% INJ 50 MEQ in DEXTROSE 5% IN WATE 1000ML INJ 1,000 ML IV SCH ×4 (05:02→13:03)
[2016-10-12] MEDS: metroNIDAZOLE 500 MG TAB PO SCH ×3 (05:02→22:40)
[2016-10-12 07:50] LABS: BICARBONATE 25.8 MEQ/L (21.0-32.0); POTASSIUM 3.5 MEQ/L (3.5-5.1)
[2016-10-12] MEDS: SODIUM CHLORIDE 0.9% FLUSH 10 ML FLUSH IV FLUSH SCH ×2 (09:00→21:00)
[2016-10-12] MEDS: FLUTICASONE PROPIONATE 50 MCG/ACT 16 GM NASAL SPRAY EACH NARE SCH (09:00)
[2016-10-12] MEDS: HEPARIN SODIUM - SQ 10,000 UNITS/ML VIAL SQ SCH ×2 (09:00→22:39)
[2016-10-12] MEDS: DOCUSATE SODIUM 50 MG/SENNA 8.6 MG TAB PO SCH ×2 (09:00→21:00)
[2016-10-12] MEDS: PANTOPRAZOLE SODIUM 40 MG VIAL IV SCH (09:22)
[2016-10-12] MEDS: ACETAMINOPHEN 325 MG TAB PO PRN (11:12)
[2016-10-12] MEDS ORDERED: POTASSIUM CHLORIDE 25 MEQ EFFERVESCENT TAB PO ONE (15:30)
[2016-10-12] MEDS ORDERED: FUROSEMIDE 20 MG/2 ML VIAL IV PUSH ONE (15:30)
--- NOTE | 2016-10-12 15:45 | HHI.PR ---
Subjective Remarks abd. and legs with increase swelling wants regular diet no cp pelvis pain voiding okay no cp no sob no fever anxious to go home Objective Objective Results - Vital Signs Date Time Temp Pulse Resp B/P Pulse Ox O2 Delivery O2 Flow Rate FiO2 10/12/16 12:53 138/83 10/12/16 12:22 96.4 62 20 150/85 96 10/12/16 11:01 59 10/12/16 09:37 Room Air 10/12/16 08:59 97.0 64 20 138/87 97 10/12/16 04:00 96.7 61 20 135/84 97 10/12/16 00:00 97.2 71 20 122/75 97 10/11/16 20:15 98 Room Air 10/11/16 20:00 98.6 65 20 126/85 98 10/11/16 20:00 63 10/11/16 16:00 98.2 70 20 131/84 97 I/O 10/11/16 10/11/16 10/11/16 10/12/16 10/12/16 10/12/16 07:00 15:00 23:00 07:00 15:00 23:00 Intake Total 640 ml 1223 ml 557 ml 970 ml Output Total 275 ml 1400 ml 1275 ml 2575 ml 650 ml 350 ml Balance 365 ml -177 ml -718 ml -1605 ml -650 ml -350 ml Intake Oral 480 ml IV Total 640 ml 743 ml 557 ml 970 ml Output Urine Total 1100 ml 1100 ml 2400 ml 650 ml Drainage Total 275 ml 300 ml 175 ml 175 ml 350 ml # Voids 2 # Bowel Movements 2 Result Diagram: 10/11/16 0746 10/12/16 0618 Imaging Last Impressions Chest X-Ray 10/07/161407 Signed Impressions: Service Date/Time: September 14:08 - CONCLUSION: No acute disease. Josef Rich MD Abdomen/Pelvis CT 10/07/161407 Signed Impressions: Service Date/Time: September 15:43 - CONCLUSION: 1. Large bilateral pelvic fluid collections which may be postsurgical seromas. There is significant compression of the distal ureters and bladder resulting in mild to moderate bilateral hydronephrosis. 2. Status post prostatectomy with removal of seminal vesicles. 3. Large calcified cystic lesion in the lower pole the left kidney. If prior imaging can be obtained comparison is recommended. 4. Lower lumbar fusion. Wolfgang Whitfield MD Other Results Laboratory Tests Test 10/12/16 06:18 Sodium Level 142 Potassium Level 3.5 Chloride Level 109 Carbon Dioxide Level 25.8 Anion Gap 7 Blood Urea Nitrogen 16 Creatinine 1.61 Estimat Glomerular Filtration 44 Rate Random Glucose 107 Calcium Level 8.4 Date/Time Procedure Status Source Growth 10/08/16 13:57 Aerobic Blood Culture - Preliminary Resulted Blood Peripheral NO GROWTH IN 4 DAYS 10/08/16 13:57 Anaerobic Blood Culture - Preliminary Resulted Blood Peripheral NO GROWTH IN 4 DAYS 10/08/16 09:48 Gram Stain - Final Complete Abscess Abdomen 10/08/16 09:48 Wound Culture - Final Complete Abscess Abdomen NO GROWTH IN 72 HRS.--AEROBICALLY OR ... 10/08/16 09:48 Fungal Smear - Final Resulted Fluid Other NO FUNGAL ELEMENTS SEEN. 10/08/16 09:48 Fungal Culture Resulted Fluid Other Pending 10/08/16 09:48 Cancelled Fluid Other ROS General: No: Fatigue, Weakness HEENT: No: Sore Throat, Dysphagia Cardiac: Edema, No: Chest Pain, Palpitations, Other Pulmonary: No: Cough, SOB, Wheezing GI: Abdominal Pain, No: BM, Diarrhea, N/V, Other /PHYSICIAN ASSISTANT PSYCHIATRY: No: Dysuria, Urgency Neuro/MS: No: Lightheaded, Confusion Psych: No: Anxiety, Depression Skin: No: Itching, Rash Physical Exam Physical Exam GENERAL: This is a well-nourished, well-developed patient, in no apparent distress. SKIN: No rashes, ecchymoses or lesions. Cool and dry. HEAD: Atraumatic. Normocephalic. No temporal or scalp tenderness. EYES: Pupils equal round and reactive. Extraocular motions intact. No scleral icterus. No injection or drainage. ENT: Nose without bleeding, purulent drainage or septal hematoma. Throat without erythema, tonsillar hypertrophy or exudate. Uvula midline. Airway patent. NECK: Trachea midline. No JVD or lymphadenopathy. Supple, nontender, no meningeal signs. CARDIOVASCULAR: Regular rate and rhythm without murmurs, gallops, or rubs. RESPIRATORY: Clear to auscultation. Breath sounds equal bilaterally. No wheezes , rales, or rhonchi. GASTROINTESTINAL: Abdomen soft, tender over pelvis, bilat anterior drain with yellow drainage. Right drain slightly more cloudier than left. Abd slightly distended, edematous. No hepato-splenomegaly, or palpable masses. No guarding. MUSCULOSKELETAL: Extremities without clubbing, cyanosis, or edema. No joint tenderness, effusion. No calf tenderness. Negative Homans sign bilaterally. Bilat legs with 2+ pitting edema, knees down. Pedal pulses 2+ bilat. NEUROLOGICAL:Awake, oriented x 3. Grossly normal. 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 Presents to the emergency room with fever, malaise, right flank buttock pain. CT abdomen and pelvis with findings of large bilateral pelvic fluid collections which may be postsurgical seromas. There is significant compression of the distal ureters and bladder resulting [id number] bilateral hydronephrosis. Status post bilateral percutaneous drain placement 10/08 Became tachycardic and hypoxic after procedure, hallicat called, CCM consulted. Poss. sepsis Pelvic abscess right (fluid collection is an abscess grew Strep and mixed anaerobes). -continue abx, ID input appreciated. On PO abx, Flagyl and Levaquin, needs to f/ u ID as OP in 10 days -dec. IVF -follow cultures -WBC improving, no fever. -Appreciate urology input, recommends CT abd/pelvis to evaluate seromas before dc. Will order for tomorrow. MILLER sec. hydronephrosis, did receive Contrast, was on Toradol Met acidosis -started on Sodium bicarb at 125/hr -nephrology following -renal function improving Inc. peripheral and abd. edema -dec IVF to 75/hr -lasix 20 mg IVP x 1 History of Kelton syndrome, had a recent flareup that require Medrol Dosepak Continue to monitor patient History of migraines, complaints of headache, now resolved -Imitrex PRN Chronic low back pain, has a neuro stimulator in place. Follows up regularly with Dr. Kaye according to record, Toradol is effective for his pain, requesting no narcotics. -Continue with Cymbalta 20 by mouth daily at bedtime, he uses for pain management -no Toradol due to MILLER GERD Continue with Zantac 150 mg by mouth twice a day SCDs, refusing heparin for DVT prophylaxis Renal function improving Mild nausea with Flagyl, but tolerating better. No vomiting CM consult for DC planning, home health care for drain management Possible discharge tomorrow with home health care D/W RN D/W Dr. Rankin D/W pt and family This patient was seen by myself and , this note is written on his behalf Problem Qualifiers (1) Fever: Qualified Code: R50.9 - Fever, unspecified fever cause (2) Kelton's syndrome: Qualified Code: M02.30 - Kelton's disease, Kelton's disease of unspecified site (3) GERD (gastroesophageal reflux disease): Qualified Code: K21.9 - Gastroesophageal reflux disease, esophagitis presence not specified (4) Chronic low back pain: (5) Acute renal failure: Qualified Code: N17.9 - Acute renal failure, unspecified acute renal failure type (6) Migraines: Qualified Code: G43.009 - Migraine without aura and without status migrainosus , not intractable Chanda Singletary [facility] Oct 12, 2016 15:45
--- NOTE | 2016-10-12 15:46 | HHI.FF ---
Face to Face Verification Diagnosis: (1) Postoperative seroma involving genitourinary system after genitourinary procedure (2) Fever (3) Kelton's syndrome (4) Bilateral hydronephrosis (5) GERD (gastroesophageal reflux disease) (6) Chronic low back pain (7) neurostiumulator in place (8) Acute renal failure (9) Migraines (10) Viridans streptococci infection (11) Anaerobic abscess (12) Pelvic abscess in male Home Health Nursing Order: Medical education Nursing assessment with vital signs Instructions: drain management I have seen patient Tho Johns on 10/12/16. My clinical findings support the need for the requested home health care services because: Limited ability to care for self Need for psychosocial assistance I certify that my clinical findings support that this patient is homebound because: Post-op weakness Unsafe to leave home unassisted Need for psychosocial assistance Chanda Singletary [facility] Oct 12, 2016 15:46
[2016-10-12] MEDS: DULoxetine HCl DR 20 MG CAP PO SCH (22:40)
[2016-10-12] MEDS: LEVOFLOXACIN 500 MG TAB PO SCH (22:43)
[2016-10-13] VITALS: BP 153/85; PULSE 59; RESP 18; TEMP 98.6; O2SAT 95
[2016-10-13] MEDS: ACETAMINOPHEN 325 MG TAB PO PRN (00:31)
[2016-10-13] MEDS: ONDANSETRON HCL 4 MG/2 ML VIAL IVP PRN (01:30)
[2016-10-13] MEDS: SODIUM BICARBONATE 8.4% INJ 50 MEQ in DEXTROSE 5% IN WATE 1000ML INJ 1,000 ML IV SCH ×2 (01:31)
[2016-10-13] MEDS: CHLORHEXIDINE GLUCONATE 2 % 1 PACK (2 CLOTHS) TOP SCH (01:31)
[2016-10-13 06:56] VITALS: BP 135/82; PULSE 61; RESP 20; TEMP 97.2; O2SAT 95
[2016-10-13] MEDS: metroNIDAZOLE 500 MG TAB PO SCH ×2 (07:07→14:26)
[2016-10-13 08:00] VITALS: BP 117/77; PULSE 69; RESP 18; TEMP 98.3; O2SAT 95
[2016-10-13] MEDS: DOCUSATE SODIUM 50 MG/SENNA 8.6 MG TAB PO SCH (09:00)
[2016-10-13] MEDS: HEPARIN SODIUM - SQ 10,000 UNITS/ML VIAL SQ SCH (09:00)
[2016-10-13] MEDS: SODIUM CHLORIDE 0.9% FLUSH 10 ML FLUSH IV FLUSH SCH (09:00)
[2016-10-13] MEDS: PANTOPRAZOLE SODIUM 40 MG VIAL IV SCH (09:30)
[2016-10-13] MEDS: FLUTICASONE PROPIONATE 50 MCG/ACT 16 GM NASAL SPRAY EACH NARE SCH (09:31)
--- NOTE | 2016-10-13 10:35 | RADRPT ---
EXAM DATE/TIME: 10/13/2016 10:11 [facility] COMPARISON: CT ABDOMEN & PELVIS W CONTRAST, October 07, 2016, 15:43. CT ASSISTED ABSCESS DRAIN, October 08, 2016, 9:09 . INDICATIONS : Evaluate bilateral seromas. ORAL CONTRAST: No oral contrast ingested. RADIATION DOSE: 13.43 CTDIvol (mGy) MEDICAL HISTORY : Carcinoma, prostate. Varicocele. Gastroesophageal reflux disease.Left kidney calcification. SURGICAL HISTORY : Prostatectomy. Fusion, lumbar. ENCOUNTER: Subsequent ACUITY: 4 - 6 days PAIN SCALE: 3/10 LOCATION: Bilateral lower quadrant TECHNIQUE: Volumetric scanning of the abdomen and pelvis was performed. Using automated exposure control and ad justment of the mA and/or kV according to patient size, radiation dose was kept as low as reasonably achievable to obtain optimal diagnostic quality images. DICOM format image data is available electro nically for review and comparison. FINDINGS: Today's exam is compared to the prior recent studies. Patient is status post drainage of bilateral se romas in the pelvis. On today's examination bilateral drainage catheters are in good position within the pelvis. The left seroma has incompletely drained. There is near complete drainage of the right se demetri. A small amount of residual fluid remains on the right side. No new fluid collections are seen. No other new or significant changes are demonstrated. Also noted is atelectasis as well as a small ri ght-sided pleural effusion. There is mild atelectasis in the left lung base. CONCLUSION: 1. Complete drainage of the left-sided seroma. 2. Near-complete drainage of the right-sided seroma. 3. No new fluid collections are demonstrated. 4. Right lower lung atelectasis with small effusion. Nasim Sahni MD on October 13, 2016 at 10:28 Board Certified Radiologist. This report was verified electronically.
--- NOTE | 2016-10-13 11:21 | HHI.NPPN ---
Subjective Renal Failure: Acute Interval History Renal function has improved. He reports one episode of vomiting last night. ( Tonya Fernandez) Objective Data Data 10/12/16 10/13/16 19:00 07:00 Intake Total 1100 ml Output Total 2850 ml 1300 ml Balance -1750 ml -1300 ml IV Total 1100 ml Output Urine Total 2500 ml 825 ml Drainage Total 350 ml 475 ml Vital Signs Date Time Temp Pulse Resp B/P Pulse Ox O2 Delivery O2 Flow Rate FiO2 10/13/16 09:46 Room Air 10/13/16 08:00 98.3 69 18 117/77 95 10/13/16 06:56 97.2 61 20 135/82 95 10/13/16 00:00 98.6 59 18 153/85 95 10/12/16 20:00 99.1 64 20 140/85 94 10/12/16 16:26 97.4 59 18 133/71 96 10/12/16 12:53 138/83 10/12/16 12:22 96.4 62 20 150/85 96 (Tonya Fernandez) -: 10/11/16 0746 10/12/16 0618 Imaging Last 72 hours Impressions Abdomen/Pelvis CT 10/13/16 0800 Signed Impressions: Service Date/Time: Thursday, October 13, 2016 10:11 - CONCLUSION: 1. Complete drainage of the left-sided seroma. 2. Near-complete drainage of the right- sided seroma. 3. No new fluid collections are demonstrated. 4. Right lower lung atelectasis with small effusion. Nasim Sahni MD (Tonya Fernandez) Physical Exam General Appearance: Well Developed, Well Nourished, Comfortable (Tonya Fernandez) Eyes Eye Exam: Pupils Equal, Pupils Reactive (Tonya Fernandez) Ears & Nose Ears & Nose Exam: Nasal Mucosa Volcano (pale) (Tonya Fernandez) Throat Throat Exam: Oral Mucosa Volcano & Moist (pale) (Tonya Fernandez) Neck Neck Exam: Neck Supple (Tonya Fernandez) Pulmonary Resp Exam: Clear Bilaterally, Breath Sounds Equal (Tonya Fernandez) Cardiology CV Exam: Regular, Normal Sinus Rhythm (Tonya Fernandez) Gastrointestinal/Abdomen GI Exam: Soft, Non-Tender, Bowel Sounds Present, Bowel Sounds Hypoactive ( Tonya Fernandez) Genitourinary Remarks bilateral pelvic drains (Tonya Fernandez) Musculoskeletal MS Exam: Joints Intact, Normal Tone (Tonya Fernandez) Integumentary Skin Exam: Clear, Warm, Dry, Intact (Tonya Fernandez) Extremeties Extremities Exam: No Edema, Pedal Pulses Palpable (Tonya Fernandez) Neurologic Neuro Exam: Alert, Awake, Oriented, Speech Clear, Moving All Extremities ( Tonya Fernandez) Assessment/Plan Discussed Condition With: Patient Assessment Summary: MILLER/Acute Renal Failure Problem List: (1) Acute renal failure Plan: renal function has been improving, today's labs in process s/p seroma drainage, repeat imaging showing no hydronephrosis metabolic acidosis has corrected, stop bicarb drip tolerating oral fluids he is non oliguric at this time he is stable, to follow up with urology as scheduled if renal function stable or improved, can be discharged hoem Avoid nephrotoxic substances renal panel in am (2) Pelvic abscess in male Plan: s/p seroma excision monitor clinically, monitor drainage (Tonya Fernandez) Plan patient was seen and examined. Creatinine is slightly higher today. MILLER multifactorial, had hydronephrosis on admission, resolved after drainage of post -surgical seromas. May also have been dehydrated and received Toradol. No need for bicarbonate drip. (Jamal Bond MD) Problem Qualifiers (1) Acute renal failure: Qualified Code: N17.9 - Acute renal failure, unspecified acute renal failure type Tonya Fernandez Oct 13, 2016 11:21 Jamal Bond MD Oct 13, 2016 17:34
[2016-10-13 11:43] LABS: BICARBONATE 31.2 MEQ/L (21.0-32.0); POTASSIUM 3.4 MEQ/L (3.5-5.1)
[2016-10-13 12:38] VITALS: BP 135/81; PULSE 59; RESP 18; TEMP 98; O2SAT 95
[2016-10-13 16:28] VITALS: BP 127/77; PULSE 70; RESP 18; TEMP 97.8; O2SAT 95
[2016-10-13 16:39] VITALS: PULSE 59
--- NOTE | 2016-10-13 19:54 | HHI.PR ---
Subjective Interval History Alert, oriented, denies pain, ambulating around his room, would like to go home Review of Systems Constitutional Constitutional: Chills (resolved now), Fatigue, Weakness Constitutional Remarks 10 systems reviewed otherwise negative GI/Abdomen GI/Abdominal Exam: Nausea (occ. with decreased appetite), Constipation ( responded to medication has had 3 loose BMs this morning) Genitourinary Genitourinary: Dysuria (voiding without difficulty now) Musculoskeletal MS: Weakness Integumentary Skin: Wounds Neurologic Neurologic: Headache (history of migraines) Psychiatric Psychiatric: Normal Mood Vitals/Results Intake & Output 10/12/16 10/12/16 10/13/16 15:00 23:00 07:00 Intake Total 1100 ml Output Total 650 ml 2450 ml 1050 ml Balance -650 ml -1350 ml -1050 ml IV Total 1100 ml Output Urine Total 650 ml 1850 ml 825 ml Drainage Total 600 ml 225 ml Vital Signs Vital Signs Date Time Temp Pulse Resp B/P Pulse Ox O2 Delivery O2 Flow Rate FiO2 10/13/16 16:39 59 10/13/16 16:28 97.8 70 18 127/77 95 10/13/16 12:38 98.0 59 18 135/81 95 10/13/16 09:46 Room Air 10/13/16 08:00 98.3 69 18 117/77 95 10/13/16 06:56 97.2 61 20 135/82 95 10/13/16 00:00 98.6 59 18 153/85 95 10/12/16 20:00 99.1 64 20 140/85 94 CBC/BMP: 10/11/16 0746 10/13/16 1001 Lab Results Laboratory Tests Test 10/13/16 10:01 Sodium Level 145 MEQ/L Potassium Level 3.4 MEQ/L Chloride Level 106 MEQ/L Carbon Dioxide Level 31.2 MEQ/L Anion Gap 8 MEQ/L Blood Urea Nitrogen 14 MG/DL Creatinine 1.70 MG/DL Estimat Glomerular Filtration 42 ML/MIN Rate Random Glucose 112 MG/DL Calcium Level 8.6 MG/DL Physical Exam General General Appearance: Well Developed, Well Nourished, Comfortable Eyes Eye Exam: Pupils Equal, Pupils Reactive Ears & Nose Ears & Nose Exam: Nasal Mucosa Kirk (pale) Throat Throat Exam: Oral Mucosa Kirk & Moist (pale) Neck Neck Exam: Neck Supple Pulmonary Resp Exam: Clear Bilaterally, Breath Sounds Equal Cardiology CV Exam: Regular, Normal Sinus Rhythm Gastrointestinal/Abdomen GI Exam: Soft, Non-Tender, Bowel Sounds Present, Bowel Sounds Hypoactive Musculoskeletal MS Exam: Joints Intact, Normal Tone Integumentary Skin Exam: Clear, Warm, Dry, Intact Extremeties Extremities Exam: No Edema, Pedal Pulses Palpable Neurologic Neuro Exam: Alert, Awake, Oriented, Speech Clear, Moving All Extremities VTE Prophylaxis VTE Prophylaxis Meds: Heparin Assessment/Plan Assessment/Plan Assessment Bilateral pelvic seromas Bilateral hydronephrosis Status post bilateral pelvic seroma drainage tube insertion on 10/08/16 Episode of chills immediately after tube insertion Acute kidney injury upon arrival, likely obstructive uropathy This is improving history of prostate cancer, status post surgery Management Discharge home today Keep drainage tubes in place Pain control Continue antibiotics by mouth Urology following as outpatient Follow renal function as outpatient Discussed with patient and Discussed with nurse 35 minutes Discharge Minutes: 40 Marcia Rankin MD Oct 13, 2016 19:54
== END 2016-10-13 18:58 | disposition home or self-care (01) | DRG 919 ==
LOC: NEPE 13:09 → NEDA 17:15 → N04B 20:02 → HIMN 10-08 11:30 → N05A 10-09 21:05
PROVIDERS: ADMIT Specialist; ATTEND Specialist
PROC: 0W9J30Z Drainage of Pelvic Cavity with Drainage Device, Percutaneous Approach (ICD-10-PCS; principal; 2016-10-08)
PROC: 0W9J30Z Drainage of Pelvic Cavity with Drainage Device, Percutaneous Approach (ICD-10-PCS; 2016-10-08)
DX: N99.842 Postprocedural seroma of a genitourinary system organ or structure following a genitourinary system procedure (principal); K65.1 Peritoneal abscess; N17.0 Acute kidney failure with tubular necrosis; A41.9 Sepsis, unspecified organism; N13.1 Hydronephrosis with ureteral stricture, not elsewhere classified; M02.30 Reiter's disease, unspecified site; E87.2 Acidosis; T81.4XXA Infection following a procedure, initial encounter; E78.5 Hyperlipidemia, unspecified; K21.9 Gastro-esophageal reflux disease without esophagitis; K52.9 Noninfective gastroenteritis and colitis, unspecified; R09.02 Hypoxemia; T36.8X5A Adverse effect of other systemic antibiotics, initial encounter; T39.8X5A Adverse effect of other nonopioid analgesics and antipyretics, not elsewhere classified, initial encounter; E86.9 Volume depletion, unspecified; N52.9 Male erectile dysfunction, unspecified; G89.29 Other chronic pain; B95.4 Other streptococcus as the cause of diseases classified elsewhere; F32.9 Major depressive disorder, single episode, unspecified; Y83.8 Other surgical procedures as the cause of abnormal reaction of the patient, or of later complication, without mention of misadventure at the time of the procedure; Y92.239 Unspecified place in hospital as the place of occurrence of the external cause; Z85.46 Personal history of malignant neoplasm of prostate; Z87.891 Personal history of nicotine dependence; Z88.2 Allergy status to sulfonamides; Z90.79 Acquired absence of other genital organ(s); Z98.1 Arthrodesis status; N28.1 Cyst of kidney, acquired; D64.9 Anemia, unspecified; R60.0 Localized edema; G43.009 Migraine without aura, not intractable, without status migrainosus
CPT/HCPCS: 71010; 74176; 74177; 75989; 76775; 76937; 80048; 80053; 80202; 81001; 81003; 82550; 83605; 83735; 84100; 85025; 85027; 85384; 85610; 85730; 87040; 87070; 87102; 87185; 87205; 87206; 87641; 87804; 93005; 94150; 96365; 96366; 96368; 96375; C1729; C1769; C9113; J0131; J0696; J1644; J1885; J1940; J2175; J2250; J2405; J2543; J3010; J3370; J7030; J7040; J7050; J7070; Q9967

== ENCOUNTER → 2016-10-18 | Outpatient (CLI) | payer OTHER ==
[~2016-10-18] MED LIST changes: +ACET650T67 PO; -ARTISOL2 EACH EYE; +CIAL5TAB PO; +CIPR-9 PO; -FLON0.053; +FLUT1SPR5 EACH NARE; +IMIT100T PO; -LANSO15 PO; +LEVA500T20 PO; -LIDOCAINE PATCH TOPICAL; +METR-1 PO; -NAPR220T95 PO; +PREV30CA11 PO; -ROSU40 PO; +ROSU5 PO; -SUMA100T2 PO; -TAMS0.4C67 PO; -TYLE650T9 PO; +ZANT150T2 PO
[2016-10-18 13:16] LABS: BICARBONATE 28.6 MEQ/L (21.0-32.0)
== END ==
LOC: CLAB 12:07
PROVIDERS: ATTEND Internal Medicine
DX: N17.9 Acute kidney failure, unspecified (principal)
CPT/HCPCS: 36415; 80048

== ENCOUNTER 2016-10-19 13:04 | Day surgery (SDC) | payer OTHER ==
[~2016-10-19 13:04] MED LIST changes: +ARTISOL2 EACH EYE; +FLON0.053; +LANSO15 PO; +LIDOCAINE PATCH TOPICAL; +NAPR220T95 PO; +ROSU40 PO; +SUMA100T2 PO; +TAMS0.4C67 PO; +TYLE650T9 PO
[2016-10-19 14:28] VITALS: BP 139/89; PULSE 74; RESP 20; TEMP 97.4; O2SAT 98
== END 2016-10-19 14:40 | disposition home health service (06) ==
LOC: HROP 13:04 → HRIP 13:08 → HROP 14:40
DX: Z46.89 Encounter for fitting and adjustment of other specified devices (principal)
CPT/HCPCS: 99212; G0463

== ENCOUNTER → 2016-10-27 | Outpatient (CLI) | payer OTHER ==
[~2016-10-27] MED LIST changes: -ARTISOL2 EACH EYE; +CEFT1INJ5 IV; -FLON0.053; -LANSO15 PO; -LIDOCAINE PATCH TOPICAL; -NAPR220T95 PO; -ROSU40 PO; -SUMA100T2 PO; -TAMS0.4C67 PO; -TYLE650T9 PO
[2016-10-27 12:05] LABS: HEMATOCRIT 38.2 % (39.0-51.0); MEAN CELL VOLUME 84.7 FL (80.0-100.0); MEAN CORPUSCULAR HEMOGLOBIN 27.8 PG (27.0-34.0); MEAN CORPUSCULAR HGB CONC 32.9 % (32.0-36.0); PLATELET COUNT 292 TH/MM3 (150-450); RED BLOOD COUNT 4.52 MIL/MM3 (4.50-5.90); RED CELL DISTRIBUTION WIDTH 13.9 % (11.6-17.2); REVIEW FLAG FINAL; WHITE BLOOD COUNT 5.7 TH/MM3 (4.0-11.0)
[2016-10-27 12:34] LABS: WESTERGREN SEDIMENTATION RATE 34 mm/hr (0-20)
[2016-10-28 09:44] LABS: BICARBONATE 22.2 MEQ/L (21.0-32.0); POTASSIUM 3.5 MEQ/L (3.5-5.1)
== END ==
LOC: CLAB 10:47
PROVIDERS: ATTEND Specialist
DX: L02.211 Cutaneous abscess of abdominal wall (principal); R78.81 Bacteremia
CPT/HCPCS: 36415; 80048; 85027; 85652; 86140; 87040

== ENCOUNTER 2016-10-28 09:18 | Day surgery (SDC) | payer OTHER ==
[~2016-10-28] VITALS: Ht 177.8 cm; Wt 88.6 kg
[~2016-10-28 09:18] MED LIST changes: -CEFT1INJ5 IV
[2016-10-28 09:43] VITALS: BP 123/68; PULSE 76; RESP 18; TEMP 97.8; O2SAT 97
[2016-10-28] MEDS ORDERED: LEVA500T20 PO (09:52)
[2016-10-28] MEDS ORDERED: MIDAZOLAM HCL 5 MG/5 ML VIAL ONE ×2 (13:12→13:42)
[2016-10-28] MEDS ORDERED: fentaNYL CITRATE 250 MCG/5 ML AMP ONE ×2 (13:13→13:42)
--- NOTE | 2016-10-28 14:06 | PD.RAD ---
Post Procedure Progress Note Pre Procedure Diagnosis: (1) Postoperative seroma involving genitourinary system after genitourinary procedure Post Procedure Diagnosis: (1) Postoperative seroma involving genitourinary system after genitourinary procedure Procedure Date: Oct 28, 2016 Supervising Radiologist: Festus Connor JR Proceduralist/Assist: Juan Forrest, RT(R), Flavio Argueta, RT(R) Anesthesia: Conscious Sedation Plan of Activity Patient to Unit: [facility]OP[facility] Patient Condition: Good Additional Comments: LLQ seroma drain is occluded. Fluid is leaking around tube. CT shows residual fluid around tube. Exchange for a new drain performed with blood tinged serous fluid noted. 10ml removed. Patient has f/u appointments with ID as well as [facility]. He was instructed to continue to chart the output of both drains. See PACS Report for procedural detail/treatment Jr. Nikolas,Festus Kapoor MD Oct 28, 2016 14:06
[2016-10-28 14:18] VITALS: BP 111/73; PULSE 70; RESP 18; TEMP 97.9; O2SAT 95
[2016-10-28] MEDS ORDERED: IOHEXOL 350 MG/ML 50 ML BTL (for RAD DIAG) OTHER ONE (14:30)
[2016-10-28 14:48] VITALS: BP 107/74; PULSE 74; RESP 19; O2SAT 97
--- NOTE | 2016-10-28 15:17 | RADRPT ---
EXAM DATE/TIME: 10/28/2016 12:19 [facility] COMPARISON: CT ABDOMEN & PELVIS W/O CONTRAST, October 13, 2016, 10:11. INDICATIONS : Follow up seroma drains. Patient has leakage around the left seroma drained with decreased output thr ough the drain. Flushing of the drain shows the drain to be occluded. Right drain remains patent. ORAL CONTRAST: No oral contrast ingested. RADIATION DOSE: 13.93 CTDIvol (mGy) MEDICAL HISTORY : Cardiovascular disease. Carcinoma, prostate. Left kidney calcifide cyst SURGICAL HISTORY : Fusion l4-l5 ENCOUNTER: Subsequent ACUITY: 1 day PAIN SCALE: 0/10 LOCATION: pelvis TECHNIQUE: Volumetric scanning of the pelvis was performed. Using automated exposure control and adjustment of the mA and/or kV according to patient size, radiation dose was kept as low as reasonably achievable t o obtain optimal diagnostic quality images. DICOM format image data is available electronically for review and comparison. FINDINGS: Bilateral lateral sidewall pelvic drains are again seen. There has been reaccumulation of fluid surro unding the left drain. This measures 4.9 x 3.5 x 2.4 cm. No fluid seen surrounding the right drain. N o new fluid collections. Visualized bowel loops are unremarkable. Urinary bladder is unremarkable. Pr ostate is absent. Orthopedic hardware involving the lumbar spine. Stimulator pack and leads overlie t he right flank. CONCLUSION: 1. Reaccumulation of fluid surrounding the occluded left drain. 2. Right drain is in good position without reaccumulation of fluid. Festus Connor Jr., MD on October 28, 2016 at 15:12 Board Certified Radiologist. This report was verified electronically.
[2016-10-28 15:18] VITALS: BP 94/64; PULSE 78; RESP 18; O2SAT 95
--- NOTE | 2016-10-28 15:41 | RADRPT ---
EXAM DATE/TIME: 10/28/2016 12:19 [facility] COMPARISON: No previous studies available for comparison. INDICATIONS : <<Patient has bilateral pelvic seromas following prostatectomy. The left drain is occluded and CT tasha ws reaccumulation of fluid around the drain. MEDICAL HISTORY : GERD Migraines Chronic back pain, history of SI joint problems, had neuro stimulator placed December 2015 Kelton syndrome Hyperlipidemia History of prostatitis in the past Prostate cancer, stage III adenocarcinoma, recently had robotic Prostatectomy SURGICAL HISTORY : Neurostimulator placement L4-L5 fusion Orchiopexy Varicocele repair Lasix surgery ENCOUNTER: Initial ACUITY: 3 weeks PAIN SCORE: 6/10 LOCATION: Right lower quadrant FLUORO TIME: <<2.2>> minutes IMAGE SERIES: 2 SEDATION TIME: <<30>> minutes CONTRAST: <<2>> cc Omnipaque (iohexol) 350 MEDICATION(S): 1.) <<6>> mg midazolam (Versed) IV 2.) <<300>> mcg fentanyl (Sublimaze) IV DEVICE: 1.) 8 Romansh <<30cm junior>> locking pigtail PROCEDURE : 1. Fluoroscopically guided tube exchange. 2. Conscious sedation with continuous EKG and oximetry monitoring. The risks, benefits and alternatives to the procedure were explained and verbal and written consent w as obtained. The site was prepped in sterile fashion. Full sterile technique was used, including ca p, mask, sterile gloves and gown and a large sterile sheet. Hand hygiene and 2% chlorhexidine and/or betadine/alcohol prep was utilized per protocol for cutaneous antisepsis. With fluoroscopic guidance the previously placed tube was exchanged for the prescribed catheter. Pos t procedure image demonstrates satisfactory position of the tube. The catheter was sutured in place. Conscious sedation was performed with the prescribed dosages and duration as above in the presence of an independent trained radiology nurse to assist in the monitoring of the patient. EKG and oximetry remained stable throughout the procedure. The patient tolerated the procedure well and there were no complications. The patient was sent to post anesthesia recovery in stable condition. CONCLUSION: Uncomplicated tube exchange as above. The patient was instructed to continue to chart the output of b oth drains. Festus Connor Jr., MD on October 28, 2016 at 15:38 Board Certified Radiologist. This report was verified electronically.
== END 2016-10-28 16:27 | disposition home or self-care (01) ==
LOC: HRIP 09:18 → HROP 09:18
DX: N99.842 Postprocedural seroma of a genitourinary system organ or structure following a genitourinary system procedure (principal); E78.5 Hyperlipidemia, unspecified; K21.9 Gastro-esophageal reflux disease without esophagitis; M54.9 Dorsalgia, unspecified; G89.29 Other chronic pain; Z85.46 Personal history of malignant neoplasm of prostate; Z98.1 Arthrodesis status
CPT/HCPCS: 49423; 72192; 75989; 99152; 99153; C1729; C1769; J2250; J3010; Q9967

== ENCOUNTER 2016-11-16 12:37 | Day surgery (SDC) | payer OTHER ==
[~2016-11-16 12:37] MED LIST changes: +CEFT1INJ5 IV; -CIPR-9 PO; -LEVA500T20 PO; -METR-1 PO; -ZANT150T2 PO
[2016-11-16 12:59] VITALS: BP 134/68; PULSE 64; RESP 18; TEMP 97.4; O2SAT 96
== END 2016-11-16 13:50 | disposition home or self-care (01) ==
LOC: HROP 12:37 → HRIP 12:38 → HROP 13:50
DX: L02.211 Cutaneous abscess of abdominal wall (principal)
CPT/HCPCS: 99212; G0463

== ENCOUNTER → 2016-12-06 | Outpatient (CLI) | payer OTHER | LOC: CLAB 12:14 | DX: Z85.46 Personal history of malignant neoplasm of prostate (principal) | CPT/HCPCS: 36415; 84153 ==

== ENCOUNTER → 2016-12-16 | Outpatient (CLI) | payer OTHER ==
[2016-12-16 12:29] LABS: BLOOD, URINE NEG (NEG); GLUCOSE,URINE NEG (NEG); KETONE, URINE NEG (NEG); NITRITE,URINE NEG (NEG); URINE COLOR YELLOW (YELLW/STRAW)
[2016-12-16 12:35] LABS: AUTOMATED NEUTROPHIL # 4.4 TH/MM3 (1.8-7.7); BASOPHIL % 0.2 % (0.0-2.0); EOSINOPHIL # 0.2 TH/MM3 (0-0.4); EOSINOPHIL % 2.9 % (0.0-4.0); HEMATOCRIT 42.4 % (39.0-51.0); HEMO FLAGS DIFF FINAL; LYMPH % 9.1 % (9.0-44.0); LYMPHOCYTE # 0.5 TH/MM3 (1.0-4.8); MEAN CELL VOLUME 85.6 FL (80.0-100.0); MEAN CORPUSCULAR HEMOGLOBIN 28.3 PG (27.0-34.0); MEAN CORPUSCULAR HGB CONC 33.1 % (32.0-36.0); NEUT % 81.8 % (16.0-70.0); PLATELET COUNT 154 TH/MM3 (150-450); RED BLOOD COUNT 4.95 MIL/MM3 (4.50-5.90); RED CELL DISTRIBUTION WIDTH 15.2 % (11.6-17.2); WHITE BLOOD COUNT 5.4 TH/MM3 (4.0-11.0)
[2016-12-16 12:36] LABS: COMMENT (UR) CULT NOT INDICATED; CULTURE IF INDICATED CULT NOT INDICATED
[2016-12-16 12:58] LABS: ANION GAP 7 MEQ/L (5-15); AST (GOT) 22 U/L (15-37); BICARBONATE 26.7 MEQ/L (21.0-32.0); BLOOD UREA NITROGEN 10 MG/DL (7-18); CHLORIDE 102 MEQ/L (98-107); GLOMERULAR FILTRATION RATE 82 ML/MIN (>89); GLUCOSE,FASTING 82 MG/DL (74-99); POTASSIUM 3.6 MEQ/L (3.5-5.1); SODIUM (NA) 136 MEQ/L (136-145)
[2016-12-16 13:00] LABS: ALT (GPT) 29 U/L (12-78)
[2016-12-16 13:01] LABS: ALKALINE PHOSPHATASE 64 U/L (45-117); TOTAL BILIRUBIN ADULT 0.9 MG/DL (0.2-1.0)
== END ==
LOC: CLAB 11:21
PROVIDERS: ATTEND Specialist
DX: R50.9 Fever, unspecified (principal)
CPT/HCPCS: 36415; 80053; 81001; 85025; 86140; 87040

== ENCOUNTER → 2017-03-16 | Outpatient (CLI) | payer OTHER ==
[~2017-03-16] MED LIST changes: -PREV30CA11 PO; +PREV30CA36 PO
== END ==
LOC: CLAB 12:36
PROVIDERS: ATTEND Urology
DX: Z85.46 Personal history of malignant neoplasm of prostate (principal)
CPT/HCPCS: 36415; 84153

== ENCOUNTER → 2017-05-05 | Outpatient (CLI) | payer OTHER ==
[2017-05-05 09:00] LABS: AUTOMATED NEUTROPHIL # 2.9 TH/MM3 (1.8-7.7); BASOPHIL % 0.6 % (0.0-2.0); EOSINOPHIL # 0.2 TH/MM3 (0-0.4); EOSINOPHIL % 3.8 % (0.0-4.0); HEMATOCRIT 42.6 % (39.0-51.0); HEMOGLOBIN 14.4 GM/DL (13.0-17.0); LYMPH % 26.9 % (9.0-44.0); LYMPHOCYTE # 1.3 TH/MM3 (1.0-4.8); MEAN CELL VOLUME 86.6 FL (80.0-100.0); MEAN CORPUSCULAR HEMOGLOBIN 29.4 PG (27.0-34.0); MEAN PLATELET VOLUME 7.4 FL (7.0-11.0); MONOCYTE # 0.5 TH/MM3 (0-0.9); NEUT % 58.7 % (16.0-70.0); PLATELET COUNT 185 TH/MM3 (150-450); RED BLOOD COUNT 4.92 MIL/MM3 (4.50-5.90); RED CELL DISTRIBUTION WIDTH 14.3 % (11.6-17.2)
[2017-05-05 09:25] LABS: ALBUMIN 4.1 GM/DL (3.4-5.0); BICARBONATE 29.7 MEQ/L (21.0-32.0); BLOOD UREA NITROGEN 16 MG/DL (7-18); CHLORIDE 106 MEQ/L (98-107); CREATININE 0.91 MG/DL (0.60-1.30); GLOMERULAR FILTRATION RATE 86 ML/MIN (>89); GLUCOSE,FASTING 87 MG/DL (74-99); SODIUM (NA) 141 MEQ/L (136-145)
[2017-05-05 09:26] LABS: ALT (GPT) 23 U/L (12-78); AST (GOT) 16 U/L (15-37); CHOLESTEROL 186 MG/DL (120-200); TRIGLYCERIDES 105 MG/DL (42-150)
[2017-05-05 09:35] LABS: ALKALINE PHOSPHATASE 56 U/L (45-117); CHOLESTEROL/ HDL RATIO 2.61 RATIO; FREE T4 0.87 NG/DL (0.76-1.46); HDL CHOLESTEROL 71.1 MG/DL (40.0-60.0); LDL CHOLESTEROL 94 MG/DL (0-99); TOTAL BILIRUBIN ADULT 0.6 MG/DL (0.2-1.0); TOTAL PROTEIN 7.3 GM/DL (6.4-8.2)
== END ==
LOC: CLAB 08:37
PROVIDERS: ATTEND Allergy & Immunology
DX: E78.00 Pure hypercholesterolemia, unspecified (principal); K21.9 Gastro-esophageal reflux disease without esophagitis; R53.83 Other fatigue; M02.38 Reiter's disease, vertebrae
CPT/HCPCS: 36415; 80053; 80061; 84439; 84443; 85025; 86140

== ENCOUNTER → 2017-06-20 | Outpatient (CLI) | payer OTHER | LOC: CLAB 12:12 | PROVIDERS: ATTEND Urology | DX: Z85.46 Personal history of malignant neoplasm of prostate (principal) | CPT/HCPCS: 36415; 84153 ==

== ENCOUNTER → 2017-08-11 | Outpatient (CLI) | payer OTHER ==
[2017-08-11 10:36] LABS: AUTOMATED NEUTROPHIL # 3.1 TH/MM3 (1.8-7.7); BASOPHIL % 0.8 % (0.0-2.0); EOSINOPHIL # 0.2 TH/MM3 (0-0.4); EOSINOPHIL % 3.6 % (0.0-4.0); HEMOGLOBIN 14.9 GM/DL (13.0-17.0); LYMPH % 28.3 % (9.0-44.0); LYMPHOCYTE # 1.5 TH/MM3 (1.0-4.8); MEAN CELL VOLUME 89.9 FL (80.0-100.0); MEAN CORPUSCULAR HEMOGLOBIN 30.4 PG (27.0-34.0); MEAN CORPUSCULAR HGB CONC 33.8 % (32.0-36.0); MONOCYTE # 0.5 TH/MM3 (0-0.9); NEUT % 57.3 % (16.0-70.0); PLATELET COUNT 181 TH/MM3 (150-450); RED BLOOD COUNT 4.89 MIL/MM3 (4.50-5.90); RED CELL DISTRIBUTION WIDTH 13.6 % (11.6-17.2); WHITE BLOOD COUNT 5.5 TH/MM3 (4.0-11.0)
[2017-08-11 11:02] LABS: ALKALINE PHOSPHATASE 54 U/L (45-117); C-REACTIVE PROTEIN LESS THAN 0.29 MG/DL (0.00-0.30); TOTAL BILIRUBIN ADULT 0.6 MG/DL (0.2-1.0); TOTAL PROTEIN 7.5 GM/DL (6.4-8.2)
[2017-08-11 11:13] LABS: ALBUMIN 4.2 GM/DL (3.4-5.0); ALT (GPT) 29 U/L (12-78); AST (GOT) 31 U/L (15-37); BICARBONATE 31.5 MEQ/L (21.0-32.0); BLOOD UREA NITROGEN 18 MG/DL (7-18); CALCIUM 9.8 MG/DL (8.5-10.1); CHLORIDE 105 MEQ/L (98-107); CREATININE 1.04 MG/DL (0.60-1.30); GLOMERULAR FILTRATION RATE 73 ML/MIN (>89); GLUCOSE,FASTING 96 MG/DL (74-99); SODIUM (NA) 141 MEQ/L (136-145)
== END ==
LOC: CLAB 09:50
PROVIDERS: ATTEND Allergy & Immunology
DX: M45.6 Ankylosing spondylitis lumbar region (principal)
CPT/HCPCS: 36415; 80053; 85025; 86140